=== PATIENT | male | born 1980 | race Caucasian/White ===

== ENCOUNTER 2017-02-09 11:55 | Emergency (ER) | payer SELFPAY ==
[2017-02-09 12:21] VITALS: BP 131/87
--- NOTE | 2017-02-09 12:59 | ER Document Report ---
ED ENT - General Chief Complaint: Nose Pain Stated Complaint: BUMPS ON NOSE Time seen by provider: 12:58 Mode of Arrival: Ambulatory Information source: Patient Notes: 36-year-old male presents to ED for complaint of sores in his left nostril. 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 He states he has now moved to [place]. He states he still has half a tube of Bactroban and some Bactrim but that the pain is so bad today that he cannot stand it. He states the pain and the source started on Tuesday. TRAVEL OUTSIDE OF THE [place] IN LAST 30 DAYS: No - HPI Patient complains to provider of: Nose problem Onset: Other - Tuesday Onset/Duration: Gradual, Worse Quality of pain: Sharp - Throbbing Severity: Moderate Pain Level: 4 Location of pain: Nose - Left nostril Associated symptoms: Other - Sore in left nostril Similar symptoms previously: Yes Recently seen / treated by doctor: No - Related Data Allergies/Adverse Reactions: codeine [From Tylenol-Codeine #3] Allergy (Verified 02/09/17 12:15) tramadol Allergy (Verified 02/09/17 12:15) Past Medical History - General Information source: Patient - Social History Smoking Status: Current Every Day Smoker Cigarette use (# per day): Yes - half a pack a day Chew tobacco use (# tins/day): No Smoking Education Provided: Yes - less than 2 minutes Frequency of alcohol use: None Drug Abuse: None Lives with: Friend Family History: CAD, COPD, CVA, DM, Hypertension, Malignancy, Thyroid Disfunction Patient has suicidal ideation: No Patient has homicidal ideation: No - Past Medical History Cardiac Medical History: Reports: Hx Coronary Artery Disease, Hx Heart Attack Pulmonary Medical History: Reports: Hx Asthma, Hx COPD EENT Medical History: Reports: None Neurological Medical History: Reports: None Endocrine Medical History: Reports: Hx Diabetes Mellitus Type 2 Renal/ Medical History: Reports: None Malignancy Medical History: Reports None GI Medical History: Reports: Other - Ventral hernias Musculoskeltal Medical History: Reports Hx Musculoskeletal Deformity, Reports Hx Musculoskeletal Trauma Skin Medical History: 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, Reports Other - Gasgreen infection to right thigh Psychiatric Medical History: Reports: None Traumatic Medical History: Reports: Hx Fractures - Tibia shoulder and jaw Infectious Medical History: Reports: Hx MRSA Past Surgical History: Reports: Hx Orthopedic Surgery - Removal of infection from right thigh Review of Systems - Review of Systems Constitutional: No symptoms reported EENT: Other - Very painful sore in left [place] Cardiovascular: No symptoms reported Respiratory: No symptoms reported Gastrointestinal: No symptoms reported Genitourinary: No symptoms reported Male Genitourinary: No symptoms reported Musculoskeletal: No symptoms reported Skin: No symptoms reported Hematologic/Lymphatic: No symptoms reported Neurological/Psychological: No symptoms reported Physical Exam - Vital signs Vitals: Temp Pulse Resp BP Pulse Ox 98.4 F 75 18 131/87 H 99 02/09/17 12:00 02/09/17 12:00 02/09/17 12:00 02/09/17 12:00 02/09/17 12:00 Interpretation: Normal - General General appearance: Appears well, Alert - HEENT Head: Normocephalic, Atraumatic Eyes: Normal Pupils: PERRL Ears: Normal External canal: Normal Tympanic membrane: Normal Sinus: Normal Nasal: Other - Very painful maculopapule and left Nostril 2 Pharynx: Normal Neck: Normal - Respiratory Respiratory status: No respiratory distress Chest status: Nontender Breath sounds: Normal Chest palpation: Normal - Cardiovascular Rhythm: Regular Heart sounds: Normal auscultation Murmur: No - Abdominal Inspection: Normal Distension: No distension Bowel sounds: Normal Tenderness: Nontender Organomegaly: No organomegaly - Back Back: Normal, Nontender - Extremities General upper extremity: Normal inspection, Nontender, Normal color, Normal ROM , Normal temperature General lower extremity: Normal inspection, Nontender, Normal color, Normal ROM , Normal temperature, Normal weight bearing. No: Hiren's sign - Neurological Neuro grossly intact: Yes Cognition: Normal Orientation: AAOx4 [place] Coma Scale Eye Opening: Spontaneous [place] Coma Scale Verbal: Oriented [place] Coma Scale Motor: Obeys Commands [place] Coma Scale Total: 15 Speech: Normal Motor strength normal: LUE, RUE, LLE, RLE Sensory: Normal - Psychological Associated symptoms: Normal affect, Normal mood - Skin Skin Temperature: Warm Skin Moisture: Dry Skin Color: Normal Course - Vital Signs Vital signs: Temp Pulse Resp BP Pulse Ox 98.4 F 75 18 131/87 H 99 02/09/17 12:15 02/09/17 12:15 02/09/17 12:15 02/09/17 12:15 02/09/17 12:15 Discharge - Discharge Clinical Impression: left nasal sores Condition: Stable Disposition: HOME, SELF-CARE Instructions: Family Physicians / Practices Additional Instructions: He was seen today for an sores in the left nostril. You state you have a history of MRSA in your nostrils. He has stated that you have Bactrim and Bactroban leftover from your last episode of MRSA in your nose. I will write you a new prescription for the Bactrim and Bactroban please take the prescription that I have provided and this prescription. You will need to find a local primary doctor if you have moved to this area to continue to treat your MRSA and the pain did this causes. MRSA CELLULITIS: You have an infection of your skin and underlying soft tissues called cellulitis. This is due to bacteria, which can enter through any break in the skin, or even through an irritated hair follicle. Untreated, cellulitis will usually worsen and may form an abscess which requires draining. Although many bacterial organisms can cause cellulitis and abscess formations, the most likely bacteria is Methicillin-Resistant Staph Aureus, or MRSA for short. Antibiotics are required. Usually, warm packs or warm soaks, and elevation of the infected area are recommended. You should start getting better within 24 to 36 hours. Most infections respond quickly to the right medication. Follow-up care is important, however, to check for abscess (boil) formation, unsuspected foreign body, or resistant infection. If you develop fever, chills, or if the area of infection is becoming rapidly more swollen or painful, call the doctor at once. TRIMETHOPRIM-SULFA: You have been given a prescription for trimethoprim-sulfa (TMS, Septra, Bactrim). This is a combination antibiotic of the sulfa class, often used for urinary tract infections, middle ear infections, bronchitis, shigella intestinal infection, and Pneumocystis pneumonia. TMS is usually well-tolerated. Occasional side effects include nausea and decreased appetite. Septra is not recommended for infants less than two months of age. Do not take this medication if you have experienced severe side effects or allergy to sulfa medicine. You should stop this medicine at once and contact your physician if you develop any rash, joint pain, shortness of breath, bruising, or jaundice ( yellow color in the skin), or if you develop any other new or unusual symptoms. Bactroban Ointment Bactroban is very effective against the germs that cause infection within the skin. It's useful for impetigo and other superficial infections. Deeper infections require antibiotics by mouth or by shot. Apply the medicine three times a day for one week, or longer if your doctor has advised it. Stop the medicine and call your doctor if you develop large blisters, severe itching, increasing pain, swelling, fever, or spreading redness. ORAL NARCOTIC MEDICATION: You have been given a prescription for pain control. This medication is a narcotic. It's best taken with food, as nausea can result if taken on an empty stomach. Don't operate machinery or drive within six hours of taking this medication. Do not combine this medicine with alcohol, or with any medication which can cause sedation (such as cold tablets or sleeping pills) unless you get permission from the physician. Narcotics tend to cause constipation. If possible, drink plenty of fluids and eat a diet high in fiber and fruits. Please be aware that prescription narcotics also have the potential for abuse. People become addicted to these medications because of the general sense of wellbeing that they induce. This feeling along with a significant reduction in tension, anxiety, and aggression provides a stimulating seductive quality to these drugs. Once your pain is under control, we encourage you to discard your unused narcotics. FOLLOW-UP CARE: If you have been referred to a physician for follow-up care, call the physician s office for an appointment as you were instructed or within the next two days. If you experience worsening or a significant change in your symptoms, notify the physician immediately or return to the Emergency Department at any time for re-evaluation. Prescriptions: Hydrocodone/Acetaminophen [[place] 5-325 mg Tablet] 1 tab PO Q6HP PRN #10 tablet PRN Reason: Mupirocin [Bactroban 2% Ointment 22 gm] 1 applic TP TID #1 tube Sulfamethoxazole/Trimethoprim [Bactrim Ds Tablet] 1 each PO BID #20 tablet Forms: Smoking Cessation Education
== END 2017-02-09 14:07 | disposition home or self-care (01) ==
LOC: ER 11:55
DX: J34.89 Other specified disorders of nose and nasal sinuses (principal); E11.9 Type 2 diabetes mellitus without complications; I25.10 Atherosclerotic heart disease of native coronary artery without angina pectoris; I25.2 Old myocardial infarction; J44.9 Chronic obstructive pulmonary disease, unspecified; F17.210 Nicotine dependence, cigarettes, uncomplicated; Z71.6 Tobacco abuse counseling; Z88.5 Allergy status to narcotic agent; Z86.14 Personal history of Methicillin resistant Staphylococcus aureus infection
CPT/HCPCS: 99283

== ENCOUNTER 2017-03-15 20:51 | Emergency (ER) | payer SELFPAY ==
[2017-03-15 21:28] VITALS: BP 143/91
[2017-03-15] MEDS ORDERED: LIDOCAINE 1%/EPINEPHRINE INJ 20 ML VIAL INJ ONE (22:38)
--- NOTE | 2017-03-15 23:16 | ER Document Report ---
ED General - General Chief Complaint: Abscess on hip Stated Complaint: ABSCESS Time Seen by Provider: 03/15/17 22:23 Notes: Patient is a 58-year-old male who presents with complaint of an abscess in the left inguinal area. He said several here in the past. Is on Bactrim for the past. The new abscess just started in last few days. He denies any fevers. No vomiting. No other complaints at this time. TRAVEL OUTSIDE OF THE [place] IN LAST 30 DAYS: No - Related Data Allergies/Adverse Reactions: codeine [From Tylenol-Codeine #3] Allergy (Verified 02/09/17 12:15) tramadol Allergy (Verified 02/09/17 12:15) Past Medical History - Social History Smoking Status: Unknown if Ever Smoked Frequency of alcohol use: None Drug Abuse: None Family History: CAD, COPD, CVA, DM, Hypertension, Malignancy, Thyroid Disfunction - Past Medical History Cardiac Medical History: Reports: Hx Coronary Artery Disease, Hx Heart Attack Pulmonary Medical History: Reports: Hx Asthma, Hx COPD Endocrine Medical History: Reports: Hx Diabetes Mellitus Type 2 Renal/ Medical History: Denies: Hx Peritoneal Dialysis Musculoskeltal Medical History: Reports Hx Musculoskeletal Deformity, Reports Hx Musculoskeletal Trauma Skin Medical History: 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 Traumatic Medical History: Reports: Hx Fractures - Tibia shoulder and jaw Infectious Medical History: Reports: Hx MRSA Past Surgical History: Reports: Hx Cardiac Surgery - stent, Hx Orthopedic Surgery - Removal of infection from right thigh Review of Systems - Review of Systems Notes: My Normal Review Basic REVIEW OF SYSTEMS: CONSTITUTIONAL : Denies fever, chills, or sweats. Denies recent illness. GASTROINTESTINAL: Denies abdominal pain. Denies nausea, vomiting, or diarrhea. Denies constipation. Last BM: MUSCULOSKELETAL: Denies neck or back pain or joint pain or swelling. SKIN: Abscess left inguinal area. NEUROLOGICAL: Denies altered mental status or loss of consciousness. Denies headache. Denies weakness or paralysis or loss of use of either side. Denies problems with gait or speech. Denies sensory or motor loss. ALL OTHER SYSTEMS REVIEWED AND NEGATIVE. Physical Exam - Vital signs Vitals: Temp Pulse Resp BP Pulse Ox 98.3 F 81 16 143/91 H 98 03/15/17 21:25 03/15/17 21:25 03/15/17 21:25 03/15/17 21:25 03/15/17 21:25 - Notes Notes: General Appearance: Well nourished, alert, cooperative, no acute distress, no obvious discomfort. Vitals: reviewed, See vital signs table. Eyes: PERRL, EOMI, Conjuctiva clear Abdomen: Normal BS, soft, No rigidity, No abdominal tenderness, No guarding, no rebound, no abdominal masses, no organomegaly Extremities: strength 5/5 in all extremities, good pulses in all extremities, no swelling or tenderness in the extremities, no edema. Skin: Patient has a 2 cm area of mild fluctuance with some smaller surrounding redness the left inguinal area. Area is superficial. Neuro: speech clear, oriented x 3, normal affect, responds appropriately to questions. Course - Vital Signs Vital signs: Temp Pulse Resp BP Pulse Ox 98.3 F 81 16 143/91 H 98 03/15/17 21:25 03/15/17 21:25 03/15/17 21:25 03/15/17 21:25 03/15/17 21:25 - Transfer of Care Notes: 03/15/17 23:36 Patient's abscess was incised and drained. He tolerated procedure well. Patient will be placed on Bactrim. Bactrim has worked well for him the past. Patient encouraged return to ER if his fevers, increased swelling, or spreading redness. Patient agrees with plan and will be discharged home. Dictation of this chart was performed using voice recognition software; therefore, there may be some unintended grammatical errors. Discharge - Discharge Clinical Impression: Abscess Condition: Good Disposition: HOME, SELF-CARE Additional Instructions: ABSCESS: You have an abscess (boil). This a pus-forming infection, usually due to staph. Some boils may be left to drain on their own, but most require lancing. From the time the tender lump first appears, it may be three or four days before the abscess is ready to jhonathan. Local heat and rest help at this stage of treatment. An antibiotic may prevent spread of the infection. Once the abscess is opened, packing may be placed into it. This is done so pus is not sealed inside by premature closure of the cavity. The packing will be removed at your follow-up visit or you may be advised to remove it yourself at home. Sometimes this packing must be replaced a few times during healing. The wound will heal with surprisingly little scar. Depending on the size and location of an abscess, healing can take one to four weeks. You may shower and wash the area around the incision site two or three times a day. Antibiotics may be prescribed, but are usually not necessary after an abscess has been drained. If you develop fever, chills, worsening pain, or increasing swelling in the area, call the doctor or return immediately. POST INCISION AND DRAINAGE: You have had an incision made to allow drainage of an abscess. The incision must remain open so that pus and debris can drain from the wound. If the abscess cavity is large, packing is placed. This keeps the tissues from collapsing and trapping pus inside, while the body shrinks the cavity. The packing may need to be replaced every day or two. The physician will instruct you on the packing. Keep a bulky dressing over the area. Replace it if it becomes saturated with blood or pus. Do not disturb the packing (if present). You may shower and cleanse the area with gentle soap and warm water two or three times a day. Local warmth may be soothing, and may promote faster healing. Return if you develop high fever or chills, or if you note spreading redness, increasing swelling, or increasing tenderness. ORAL NARCOTIC MEDICATION: You have been given a prescription for pain control. This medication is a narcotic. It's best taken with food, as nausea can result if taken on an empty stomach. Don't operate machinery or drive within six hours of taking this medication. Do not combine this medicine with alcohol, or with any medication which can cause sedation (such as cold tablets or sleeping pills) unless you get permission from the physician. Narcotics tend to cause constipation. If possible, drink plenty of fluids and eat a diet high in fiber and fruits. TRIMETHOPRIM-SULFA: You have been given a prescription for trimethoprim-sulfa (TMS, Septra, Bactrim). This is a combination antibiotic of the sulfa class, often used for urinary tract infections, middle ear infections, bronchitis, shigella intestinal infection, and Pneumocystis pneumonia. TMS is usually well-tolerated. Occasional side effects include nausea and decreased appetite. Septra is not recommended for infants less than two months of age. Do not take this medication if you have experienced severe side effects or allergy to sulfa medicine. You should stop this medicine at once and contact your physician if you develop any rash, joint pain, shortness of breath, bruising, or jaundice ( yellow color in the skin), or if you develop any other new or unusual symptoms. FOLLOW-UP CARE: Most simple abscesses will not require a follow up visit. If you had packing placed in the abscess, remove it as instructed by the physician. If you have been referred to a physician for follow-up care, call the physicians office for an appointment as you were instructed or within the next two days. If you experience worsening or a significant change in your symptoms, return to the Emergency Department at any time for re-evaluation. Please return to the ER immediately if you have fevers, spreading redness, or recurrent swelling. Prescriptions: Hydrocodone/Acetaminophen [[place] 5-325 mg Tablet] 1 tab PO Q4 PRN #10 tablet PRN Reason: For Breakthrough Pain Sulfamethoxazole/Trimethoprim [Bactrim Ds Tablet] 1 each PO BID #14 tablet
[2017-03-15] MEDS ORDERED: HYDROCODONE/ACETAMINOPHEN 5-325 MG TABLET PO ONE (23:30)
[2017-03-15] MEDS ORDERED: HYDROCODONE/ACETAMINOPHEN 5-325 MG 6 TAB/DSPK PO PRN (23:30)
== END 2017-03-15 23:48 | disposition home or self-care (01) ==
LOC: ER 20:51
DX: L02.416 Cutaneous abscess of left lower limb (principal); I25.10 Atherosclerotic heart disease of native coronary artery without angina pectoris; J45.909 Unspecified asthma, uncomplicated; J44.9 Chronic obstructive pulmonary disease, unspecified; E11.9 Type 2 diabetes mellitus without complications; I25.2 Old myocardial infarction; Z88.6 Allergy status to analgesic agent; Z86.14 Personal history of Methicillin resistant Staphylococcus aureus infection
CPT/HCPCS: 99283; J3490

== ENCOUNTER 2017-04-07 00:08 | Emergency (ER) | payer MEDICAID ==
[2017-04-07] MEDS ORDERED: MORPHINE SULFATE IR 15 MG TABLET PO ONE (01:24)
[2017-04-07] MEDS ORDERED: IBUPROFEN 600 MG TABLET PO ONE (01:24)
--- NOTE | 2017-04-07 01:25 | ER Document Report ---
ED General - General Chief Complaint: Eye Problem Stated Complaint: RIGHT EYE PAIN Time Seen by Provider: 04/07/17 00:50 Notes: Patient is a 36-year-old male with past medical history of recurrent abscesses and MRSA infections who presents with 2 days of progressively worsening pain to the right side of his face. Describes it as a severe, constant, throbbing pain to the area of swelling just inferior and lateral to his right eye. States this feels identical to when he had abscesses in the past but he has never had one in this location. He has been taking TMP-SMX at home without any resolution of his symptoms. He states the pain is worsened by touching the area and he has not seen his primary care doctor. He denies any visual changes , fever or constitutional symptoms. TRAVEL OUTSIDE OF THE [place] IN LAST 30 DAYS: No - Related Data Allergies/Adverse Reactions: codeine [From Tylenol-Codeine #3] Allergy (Verified 02/09/17 12:15) tramadol Allergy (Verified 02/09/17 12:15) Past Medical History - General Information source: Patient - Social History Smoking Status: Current Every Day Smoker Chew tobacco use (# tins/day): No Frequency of alcohol use: None Drug Abuse: None Lives with: Spouse/Significant other Family History: CAD, COPD, CVA, DM, Hypertension, Malignancy, Thyroid Disfunction Patient has suicidal ideation: No Patient has homicidal ideation: No - Past Medical History Cardiac Medical History: Reports: Hx Coronary Artery Disease, Hx Heart Attack Pulmonary Medical History: Reports: Hx Asthma, Hx COPD Endocrine Medical History: Reports: Hx Diabetes Mellitus Type 2 Renal/ Medical History: Denies: Hx Peritoneal Dialysis Musculoskeltal Medical History: Reports Hx Musculoskeletal Deformity, Reports Hx Musculoskeletal Trauma Skin Medical History: 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 Traumatic Medical History: Reports: Hx Fractures - Tibia shoulder and jaw Infectious Medical History: Reports: Hx MRSA Past Surgical History: Reports: Hx Cardiac Surgery - stent, Hx Orthopedic Surgery - Removal of infection from right thigh - Immunizations Hx Diphtheria, Pertussis, Tetanus Vaccination: No Review of Systems - Review of Systems Notes: Constitutional: Negative for fever. HENT: Negative for sore throat. Eyes: Negative for visual changes. Cardiovascular: Negative for chest pain. Respiratory: Negative for shortness of breath. Gastrointestinal: Negative for abdominal pain, vomiting or diarrhea. Genitourinary: Negative for dysuria. Musculoskeletal: Negative for back pain. Skin: Positive for rash. Neurological: Negative for headaches, weakness or numbness. 10 point ROS negative except as marked above and in HPI. Physical Exam - Vital signs Vitals: Temp Pulse Resp BP Pulse Ox 98.1 F 100 16 125/85 93 04/07/17 00:12 04/07/17 00:12 04/07/17 00:12 04/07/17 00:12 04/07/17 00:12 Interpretation: Normal Notes: PHYSICAL EXAMINATION: GENERAL: Well-appearing, well-nourished and in no acute distress. HEAD: Atraumatic, normocephalic. EYES: sclera anicteric, conjunctiva are normal. ENT: Moist mucous membranes. NECK: Normal range of motion LUNGS: Normal work of breathing HEART: 2+ radial pulses bilaterally EXTREMITIES: no pitting or edema. No cyanosis. NEUROLOGICAL: No focal neurological deficits. Moves all extremities spontaneously and on command. PSYCH: Normal mood, normal affect. SKIN: Warm, Dry, normal turgor, there is a 1 x 0.5 cm abscess to the right face just inferior and lateral to the right orbital socket without surrounding erythema - HEENT Visual acuity- Right eye: 20/100 Visual acuity- Left eye: 20/50 Visual acuity- Both eyes: 20/50 Corrective lenses worn: No Course - Re-evaluation Re-evalutation: 04/07/17 01:24 Patient presents with an abscess located inferiorly and laterally to the right eye without any ocular involvement or evidence of periorbital cellulitis. The abscess was incised and drained. He will be started on Bactrim twice daily. At this time will discharge with return precautions and follow-up recommendations. Verbal discharge instructions given a the bedside and opportunity for questions given. Medication warnings reviewed. Patient is in agreement with this plan and has verbalized understanding of return precautions and the need for primary care follow-up in the next 24-72 hours. - Vital Signs Vital signs: Temp Pulse Resp BP Pulse Ox 98.1 F 77 20 138/82 H 95 04/07/17 00:12 04/07/17 02:14 04/07/17 02:14 04/07/17 02:14 04/07/17 02:14 Procedures - Incision and Drainage Right Face Type: Simple Anesthetic type: 1% Lidocaine mL's of anesthetic: 1 Blade size: 11 I&D procedure: Betadine prep applied Incision Method: Incision made by scalpel Amount/type of drainage: 2 cc purulent drainage Discharge - Discharge Clinical Impression: Facial abscess Condition: Good Disposition: HOME, SELF-CARE Additional Instructions: You were seen for an abscess that required drainage. Please clean this area with soap and water twice daily and apply a topical antibiotic. Dress the area after each cleaning. Please return if you develop fever, vomiting, the pain at the site worsens, you notice spreading redness from the area, or you have any other symptoms that are concerning to you. Prescriptions: Sulfamethoxazole/Trimethoprim [Bactrim Ds Tablet] 1 tab PO BID #20 tablet
[2017-04-07 02:18] VITALS: BP 138/82
== END 2017-04-07 01:40 | disposition home or self-care (01) ==
LOC: ER 00:08
PROC: 0H91XZZ Drainage of Face Skin, External Approach (ICD-10-PCS; principal; 2017-04-07)
DX: L02.01 Cutaneous abscess of face (principal); H57.11 Ocular pain, right eye; F17.200 Nicotine dependence, unspecified, uncomplicated; I25.10 Atherosclerotic heart disease of native coronary artery without angina pectoris; J44.9 Chronic obstructive pulmonary disease, unspecified; J45.909 Unspecified asthma, uncomplicated; E11.9 Type 2 diabetes mellitus without complications; Z86.14 Personal history of Methicillin resistant Staphylococcus aureus infection; Z88.6 Allergy status to analgesic agent; I25.2 Old myocardial infarction
CPT/HCPCS: 99283; 10060; J3490

== ENCOUNTER 2017-04-25 08:48 | Emergency (ER) | payer MEDICAID ==
[2017-04-25 08:53] VITALS: BP 142/92
--- NOTE | 2017-04-25 09:43 | ER Document Report ---
HPI - HPI Patient complains to provider of: back and leg pain Onset: Yesterday Onset/Duration: Sudden Quality of pain: Burning Severity: Severe Pain Level: 4 Context: Patient presents to the emergency department with complaints of back and right leg pain, reports it feels like his lef is on fire. Patient reports he was at the pool yesterday bent over to parts picker a baby out of the pool and hurt his back. He reports he has history of sciatica. This feels the same. Denies other symptoms such as fever vomiting diarrhea. Denies urinary or bowel incontinence or retention. Denies numbness/tingling. Last bowel movement this morning without problems. Patient reports he has been taking ibuprofen without relief of pain. Associated Symptoms: None Exacerbated by: Denies Relieved by: Denies Similar symptoms previously: Yes Recently seen / treated by doctor: No - DERM Skin Color: Normal Past Medical History - General Information source: Patient - Social History Smoking Status: Current Every Day Smoker Cigarette use (# per day): Yes Frequency of alcohol use: None Drug Abuse: None Occupation: none Family History: CAD, COPD, CVA, DM, Hypertension, Malignancy, Thyroid Disfunction Patient has suicidal ideation: No Patient has homicidal ideation: No - Past Medical History Cardiac Medical History: Reports: Hx Coronary Artery Disease, Hx Heart Attack Pulmonary Medical History: Reports: Hx Asthma, Hx COPD Endocrine Medical History: Reports: Hx Diabetes Mellitus Type 2 Renal/ Medical History: Denies: Hx Peritoneal Dialysis Musculoskeltal Medical History: Reports Hx Musculoskeletal Deformity, Reports Hx Musculoskeletal Trauma Skin Medical History: 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 Traumatic Medical History: Reports: Hx Fractures - Tibia shoulder and jaw Infectious Medical History: Reports: Hx MRSA Past Surgical History: Reports: Hx Cardiac Surgery - stent, Hx Orthopedic Surgery - Removal of infection from right thigh - Immunizations Hx Diphtheria, Pertussis, Tetanus Vaccination: No Vertical Provider Document - CONSTITUTIONAL Agree With Documented VS: Yes Exam Limitations: No Limitations General Appearance: WD/WN, No Apparent Distress - INFECTION CONTROL TRAVEL OUTSIDE OF THE [place] IN LAST 30 DAYS: No - HEENT HEENT: Atraumatic, Normocephalic - NECK Neck: Normal Inspection, Supple - RESPIRATORY Respiratory: Breath Sounds Normal, No Respiratory Distress O2 Sat by Pulse Oximetry: 99 - CARDIOVASCULAR Cardiovascular: Regular Rate - BACK Back: Normal Inspection - No obvious deformity. Good distal movement and sensation. Complains of low back right-sided pain that radiates down his right leg. No weakness good reflexes. - MUSCULOSKELETAL/EXTREMETIES Musculoskeletal/Extremeties: REBECAJOSE - NEURO Level of Consciousness: Awake, Alert, Appropriate Motor/Sensory: No Motor Deficit - DERM Integumentary: Warm, Dry Adult Front & Back Diagram: 1 - c/o pain 2 - radiates down right leg Course - Re-evaluation Re-evalutation: 04/25/17 09:40 I discussed possible treatment plan with patient to include muscle relaxer prescription ibuprofen and he became very angry. He reports he denies that he takes Zanaflex and does not need another muscle relaxer. He reports he has a 4- year-old child at home and all that does is put him to sleep. We discussed Toradol. Patient again became very very upset and demands to see another provider. Consult with Dr. vernon per [facility] guidelines. She will be over to see the patient as soon as she can. The patient presents with low back pain without signs of spinal cord compression , cauda equine syndrome, infection, aneurysm, or other serious etiology. The patient is neurologically intact. The patient has good distal movement and sensation, denies urinary or bowel incontinence/retention. Given the extremely low risk of these diagnosis, further testing and evaluation for these possibilities does not appear to be indicated at this time. 04/25/17 09:47 Patient placed in room [address] vernon 04/25/17 09:55 dr vernon in to see patient 04/25/17 10:12 Patient to be discharged with a [facility] dispense pack. Patient was also instructed on a list of primary care providers that he could follow-up with. - Vital Signs Vital signs: Temp Pulse Resp BP Pulse Ox 98 F 68 18 142/92 H 99 04/25/17 08:51 04/25/17 08:51 04/25/17 08:51 04/25/17 08:51 04/25/17 08:51 Discharge - Discharge Clinical Impression: elevated blood pressure Low back pain Qualifiers: Chronicity: acute Back pain laterality: right Sciatica presence: with sciatica Sciatica laterality: sciatica of right side Qualified Code(s): M54.41 - Lumbago with sciatica, right side Condition: Stable Disposition: HOME, SELF-CARE Instructions: Family Physicians / Practices, Ice Packs ([facility]), Low Back Pain ( [facility]), Oral Narcotic Medication ([facility]) Additional Instructions: *You have been evaluated for back pain *Take medication as prescribed *Rest/Ice packs as indicated *Follow up with a primary care provider within one week *Return to ED for worsening condition, changes, needs Monitor your blood pressure. Your blood pressure was elevated today. This may be because you were anxious, in pain or because you need medication. It is important to follow up with your primary care provider for full evaluation. Forms: Elevated Blood Pressure
--- NOTE | 2017-04-25 10:08 | ER Document Report ---
Doctor's Note Notes: 04/25/17 10:05 Patient is a 36-year-old male, I was asked to see him in conjunction with the nurse practitioner as he was unhappy with her reluctance to give him narcotic pain medication for his back pain, he reports taking his child up near the pool yesterday, causing an intense pain in the right low back shooting down the leg with burning sensation, he has a history of chronic pain in the past, states he has been in pain management but took himself out of the program approximately 7 years ago, states he does not want to be dependent on pain medication but he is in so much pain at this point in time that he is willing to take narcotics and in fact was requesting them specifically from the nurse practitioner, at home he states he has been doing some stretching, warm soaks, warm compresses, he has been taking Tylenol and Motrin with no relief, patient recently moved to the area from [place] has not yet established primary care, states he is in the process of establishing Medicaid so that he can follow-up with a primary care provider, he denies any bowel or bladder dysfunction, no numbness or tingling groin or extremities, he denies any specific injury to his back other than picking up a child recently, patient was advised of our narcotic pain medication policy here at [facility], and the need for him to follow-up with a primary care provider for any further concerns related to pain, he will be given a doespack of 6 hydrocodone 5 mg tablets today and he was advised that that would be all the narcotic pain medication we would provide from this emergency room for his sciatica type pain, patient acknowledges understanding and agreement with this plan Discharge - Discharge Clinical Impression: elevated blood pressure Low back pain Qualifiers: Chronicity: acute Back pain laterality: right Sciatica presence: with sciatica Sciatica laterality: sciatica of right side Qualified Code(s): M54.41 - Lumbago with sciatica, right side Condition: Stable Disposition: HOME, SELF-CARE Instructions: Family Physicians / Practices, Ice Packs ([facility]), Low Back Pain ( [facility]) Additional Instructions: *You have been evaluated for back pain *Take medication as prescribed *Rest/Ice packs as indicated *Follow up with a primary care provider within one week *Return to ED for worsening condition, changes, needs Monitor your blood pressure. Your blood pressure was elevated today. This may be because you were anxious, in pain or because you need medication. It is important to follow up with your primary care provider for full evaluation. Forms: Elevated Blood Pressure
[2017-04-25] MEDS ORDERED: HYDROCODONE/ACETAMINOPHEN 5-325 MG 6 TAB/DSPK PO PRN (10:09)
== END 2017-04-25 10:30 | disposition home or self-care (01) ==
LOC: ER 08:48
DX: M54.41 Lumbago with sciatica, right side (principal); R03.0 Elevated blood-pressure reading, without diagnosis of hypertension; M54.9 Dorsalgia, unspecified; M54.5 Low back pain; M79.604 Pain in right leg; F17.210 Nicotine dependence, cigarettes, uncomplicated
CPT/HCPCS: 99283

== ENCOUNTER 2017-07-27 13:28 | Emergency (ER) | payer MEDICAID ==
[2017-07-27 13:42] VITALS: BP 148/80
== END 2017-07-27 14:29 | disposition left against medical advice (07) ==
LOC: ER 13:28
DX: Z53.9 Procedure and treatment not carried out, unspecified reason (principal); K08.89 Other specified disorders of teeth and supporting structures

== ENCOUNTER 2017-07-28 05:17 | Emergency (ER) | payer MEDICAID ==
[2017-07-28] MEDS ORDERED: LIDOCAINE 1% INJ-PF (10 MG/ML) 30 ML SDV INJ ONE (07:42)
--- NOTE | 2017-07-28 07:44 | ER Document Report ---
ED Skin Rash/Insect Bite/Abscs - General Chief Complaint: Abscess Stated Complaint: ARM PAIN Time Seen by Provider: 07/28/17 07:21 Mode of Arrival: Ambulatory Information source: Patient Notes: Patient is a 36-year-old male who presents to the ER today for 3 days of pain and swelling to the right axilla. Patient also complains of left upper tooth pain that is chronic. Patient denies any fevers or chills, drainage from the axilla. He has no history of MRSA that he knows of. He does have a history of abscesses that have had to be incised and drained before. TRAVEL OUTSIDE OF THE [place] IN LAST 30 DAYS: No - Related Data Allergies/Adverse Reactions: codeine [From Tylenol-Codeine #3] Allergy (Verified 07/27/17 13:43) naproxen Allergy (Verified 07/27/17 13:43) tramadol Allergy (Verified 07/27/17 13:43) Past Medical History - General Information source: Patient - Social History Smoking Status: Current Every Day Smoker Family History: CAD, COPD, CVA, DM, Hypertension, Malignancy, Thyroid Disfunction Patient has suicidal ideation: No Patient has homicidal ideation: No - Past Medical History Cardiac Medical History: Reports: Hx Coronary Artery Disease, Hx Heart Attack Pulmonary Medical History: Reports: Hx Asthma, Hx COPD Endocrine Medical History: Reports: Hx Diabetes Mellitus Type 2 Renal/ Medical History: Denies: Hx Peritoneal Dialysis Musculoskeltal Medical History: Reports Hx Musculoskeletal Deformity, Reports Hx Musculoskeletal Trauma Skin Medical History: 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 Traumatic Medical History: Reports: Hx Fractures - Tibia shoulder and jaw Infectious Medical History: Reports: Hx MRSA Past Surgical History: Reports: Hx Cardiac Surgery - stent, Hx Orthopedic Surgery - Removal of infection from right thigh - Immunizations Hx Diphtheria, Pertussis, Tetanus Vaccination: No Review of Systems - Review of Systems Constitutional: No symptoms reported EENT: No symptoms reported Cardiovascular: No symptoms reported Respiratory: No symptoms reported Gastrointestinal: No symptoms reported Genitourinary: No symptoms reported Male Genitourinary: No symptoms reported Musculoskeletal: No symptoms reported Skin: See HPI Hematologic/Lymphatic: No symptoms reported Neurological/Psychological: No symptoms reported Physical Exam - Vital signs Vitals: Temp Pulse Resp BP Pulse Ox 97.4 F 91 18 132/86 H 96 07/28/17 05:20 07/28/17 05:20 07/28/17 05:20 07/28/17 05:20 07/28/17 05:20 - Notes Notes: PHYSICAL EXAMINATION: GENERAL: Uncomfortable appearing, but in no acute distress. HEAD: Atraumatic, normocephalic. EYES: Pupils equal round and reactive to light, extraocular movements intact, sclera anicteric, conjunctiva are normal. ENT: ear canals without erythema or foreign body, TMs pearly carson with good bony landmarks, nares patent, oropharynx clear without exudates. Moist mucous membranes. Poor dentition, tender to left upper gum around tooth #13, no edema , fluctuance or induration NECK: Normal range of motion, supple without lymphadenopathy LUNGS: CTAB and equal. No wheezes rales or rhonchi. HEART: Regular rate and rhythm without murmurs ABDOMEN: Soft, no tenderness. No guarding, no rebound BACK: no vertebral tenderness, normal ROM GI/: no CVA tenderness EXTREMITIES: Normal range of motion, no pitting edema. No cyanosis. NEUROLOGICAL: Cranial nerves grossly intact. Normal sensory/motor exams. PSYCH: Normal mood, normal affect. SKIN: Warm, Dry, normal turgor, 1cm in diameter indurated area to right axilla, tender to palpation, mild erythema overlying Course - Vital Signs Vital signs: Temp Pulse Resp BP Pulse Ox 97.4 F 91 18 132/86 H 96 07/28/17 05:20 07/28/17 05:20 07/28/17 05:20 07/28/17 05:20 07/28/17 05:20 Procedures - Incision and Drainage Right Arm Time completed: 09:00 Type: Simple Anesthetic type: 1% Lidocaine mL's of anesthetic: 4 Blade size: 11 I&D procedure: Betadine prep applied Incision Method: Incision made by scalpel Amount/type of drainage: pus and blood Discharge - Discharge Clinical Impression: Abscess of axilla, right, Pain, dental Condition: Stable Disposition: HOME, SELF-CARE Instructions: Abscess ([facility]), Post Incision and Drainage, Toothache ([facility]), Trimethoprim-Sulfa ([facility]) Additional Instructions: Return immediately for any new or worsening symptoms. Follow up with primary care provider, call tomorrow to make followup appointment. Please follow-up with your dentist. Prescriptions: Oxycodone HCl/Acetaminophen [Percocet 5-325 mg Tablet] 1 - 2 tab PO Q4H PRN #12 tablet PRN Reason: Sulfamethoxazole/Trimethoprim [Bactrim Ds Tablet] 1 each PO BID #20 tablet
[2017-07-28] MEDS ORDERED: OXYCODONE-ACETAMINOPHEN 5-325 MG TABLET PO ONE (08:12)
[2017-07-28 09:39] VITALS: BP 136/78
== END 2017-07-28 09:39 | disposition home or self-care (01) ==
LOC: ER 05:17
PROC: 0H9BXZZ Drainage of Right Upper Arm Skin, External Approach (ICD-10-PCS; principal; 2017-07-28)
DX: L02.411 Cutaneous abscess of right axilla (principal); K08.89 Other specified disorders of teeth and supporting structures; G89.29 Other chronic pain; I25.10 Atherosclerotic heart disease of native coronary artery without angina pectoris; I25.2 Old myocardial infarction; J44.9 Chronic obstructive pulmonary disease, unspecified; E11.9 Type 2 diabetes mellitus without complications; F17.200 Nicotine dependence, unspecified, uncomplicated; Z88.5 Allergy status to narcotic agent; Z88.8 Allergy status to other drugs, medicaments and biological substances; Z95.5 Presence of coronary angioplasty implant and graft
CPT/HCPCS: 10060; 99283; J3490

== ENCOUNTER 2017-08-03 13:41 | Emergency (ER) | payer MEDICAID ==
[2017-08-03 13:46] VITALS: BP 118/83
--- NOTE | 2017-08-03 14:25 | ER Document Report ---
ED Skin Rash/Insect Bite/Abscs - General Chief Complaint: Abscess Stated Complaint: RIGHT ARM PAIN Time Seen by Provider: 08/03/17 14:14 Mode of Arrival: Ambulatory Information source: Patient Notes: 36-year-old male presents to ED for complaint of abscess to the right axilla. He states he was drained on 07/28. States that the site was getting better now this started getting bigger again it is not red or inflamed but it is painful. TRAVEL OUTSIDE OF THE [place] IN LAST 30 DAYS: No - HPI Patient complains to provider of: Tender/swollen area Onset: Yesterday Onset/Duration: Gradual Quality of pain: Pressure, Sharp Severity: Mild Pain Level: 2 Skin Character: Abscess Quality of rash: Painful Identify cause: No Exacerbated by: Movement Relieved by: Denies Similar symptoms previously: Yes Recently seen / treated by doctor: Yes - Related Data Allergies/Adverse Reactions: codeine [From Tylenol-Codeine #3] Allergy (Verified 08/03/17 13:44) naproxen Allergy (Verified 08/03/17 13:44) tramadol Allergy (Verified 08/03/17 13:44) Past Medical History - General Information source: Patient - Social History Smoking Status: Current Every Day Smoker Cigarette use (# per day): Yes Smoking Education Provided: Yes - less than 2 min Family History: CAD, COPD, CVA, DM, Hypertension, Malignancy, Thyroid Disfunction. denies: Arthritis, Hyperlipidemia Patient has suicidal ideation: No Patient has homicidal ideation: No - Past Medical History Cardiac Medical History: Reports: Hx Coronary Artery Disease, Hx Heart Attack, Hx Hypercholesterolemia, Hx Hypertension Denies: Hx Atrial Fibrillation, Hx Congestive Heart Failure, Hx DVT Pulmonary Medical History: Reports: Hx Asthma, Hx COPD EENT Medical History: Reports: None Neurological Medical History: Reports: None Endocrine Medical History: Reports: Hx Diabetes Mellitus Type 2 Renal/ Medical History: Reports: None Malignancy Medical History: Reports None GI Medical History: Reports: None Musculoskeltal Medical History: Reports Hx Musculoskeletal Deformity, Reports Hx Musculoskeletal Trauma Skin Medical History: 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 Psychiatric Medical History: Reports: None Traumatic Medical History: Reports: Hx Fractures - Tibia shoulder and jaw Infectious Medical History: Reports: Hx MRSA Past Surgical History: Reports: Hx Cardiac Catheterization, Hx Coronary Stent, Hx Orthopedic Surgery - Removal of infection from right thigh - Immunizations Hx Diphtheria, Pertussis, Tetanus Vaccination: No Review of Systems - Review of Systems Constitutional: No symptoms reported EENT: No symptoms reported Cardiovascular: No symptoms reported Respiratory: No symptoms reported Gastrointestinal: No symptoms reported Genitourinary: No symptoms reported Male Genitourinary: No symptoms reported Musculoskeletal: No symptoms reported Skin: Other - abscess right axilla Hematologic/Lymphatic: No symptoms reported Neurological/Psychological: No symptoms reported -: Yes All other systems reviewed and negative Physical Exam - Vital signs Vitals: Temp Pulse Resp BP Pulse Ox 97.6 F 72 18 118/83 99 08/03/17 13:45 08/03/17 13:45 08/03/17 13:45 08/03/17 13:45 08/03/17 13:45 Interpretation: Normal - General General appearance: Appears well, Alert - HEENT Head: Normocephalic, Atraumatic Eyes: Normal Pupils: PERRL - Respiratory Respiratory status: No respiratory distress Chest status: Nontender Breath sounds: Normal Chest palpation: Normal - Cardiovascular Rhythm: Regular Heart sounds: Normal auscultation Murmur: No - Abdominal Inspection: Normal Distension: No distension Bowel sounds: Normal Tenderness: Nontender Organomegaly: No organomegaly - Back Back: Normal, Nontender - Extremities General upper extremity: Normal inspection, Nontender, Normal color, Normal ROM , Normal temperature General lower extremity: Normal inspection, Nontender, Normal color, Normal ROM , Normal temperature, Normal weight bearing. No: Hiren's sign - Neurological Neuro grossly intact: Yes Cognition: Normal Orientation: AAOx4 [place] Coma Scale Eye Opening: Spontaneous [place] Coma Scale Verbal: Oriented [place] Coma Scale Motor: Obeys Commands [place] Coma Scale Total: 15 Speech: Normal Motor strength normal: LUE, RUE, LLE, RLE Sensory: Normal - Psychological Associated symptoms: Normal affect, Normal mood - Skin Skin Temperature: Warm Skin Moisture: Dry Skin Color: Normal Skin irregularity: Abscess - right axilla Course - Re-evaluation Re-evalutation: 08/03/17 15:15 Patient treated with Septra and dispense pack of [place] after his I&D was completed. Wound was packed and patient instructed to remove packing in 3 days. - Vital Signs Vital signs: Temp Pulse Resp BP Pulse Ox 97.6 F 72 18 118/83 99 08/03/17 13:45 08/03/17 13:45 08/03/17 13:45 08/03/17 13:45 08/03/17 13:45 Procedures - Incision and Drainage right axilla Time completed: 15:13 Type: Simple Anesthetic type: 1% Lidocaine mL's of anesthetic: 5 Blade size: 11 I&D procedure: Shurclens applied, Iodoform packing placed, Sterile dressing applied Incision Method: Incision made by scalpel Discharge - Discharge Clinical Impression: Abscess of axilla, right Condition: Stable Disposition: HOME, SELF-CARE Instructions: Family Physicians / Practices Additional Instructions: ABSCESS: You have an abscess (boil). This a pus-forming infection, usually due to staph. Some boils may be left to drain on their own, but most require lancing. From the time the tender lump first appears, it may be three or four days before the abscess is ready to jhonathan. Local heat and rest help at this stage of treatment. An antibiotic may prevent spread of the infection. Once the abscess is opened, packing may be placed into it. This is done so pus is not sealed inside by premature closure of the cavity. The packing will be removed at your follow-up visit or you may be advised to remove it yourself at home. Sometimes this packing must be replaced a few times during healing. The wound will heal with surprisingly little scar. Depending on the size and location of an abscess, healing can take one to four weeks. You may shower and wash the area around the incision site two or three times a day. Antibiotics may be prescribed, but are usually not necessary after an abscess has been drained. If you develop fever, chills, worsening pain, or increasing swelling in the area, call the doctor or return immediately. POST INCISION AND DRAINAGE: You have had an incision made to allow drainage of an abscess. The incision must remain open so that pus and debris can drain from the wound. If the abscess cavity is large, packing is placed. This keeps the tissues from collapsing and trapping pus inside, while the body shrinks the cavity. The packing may need to be replaced every day or two. The physician will instruct you on the packing. Keep a bulky dressing over the area. Replace it if it becomes saturated with blood or pus. Do not disturb the packing (if present). You may shower and cleanse the area with gentle soap and warm water two or three times a day. Local warmth may be soothing, and may promote faster healing. Return if you develop high fever or chills, or if you note spreading redness, increasing swelling, or increasing tenderness. ORAL NARCOTIC MEDICATION: You have been given a [place] disp pack for pain control. This medication is a narcotic. It's best taken with food, as nausea can result if taken on an empty stomach. Don't operate machinery or drive within six hours of taking this medication. Do not combine this medicine with alcohol, or with any medication which can cause sedation (such as cold tablets or sleeping pills) unless you get permission from the physician. Narcotics tend to cause constipation. If possible, drink plenty of fluids and eat a diet high in fiber and fruits. CEPHALEXIN: The antibiotic you've been prescribed is a member of the cephalosporin class. This type of antibiotic covers a wide variety of infections, including those of the skin, lungs, and urinary tract. It's useful for staph infections. This antibiotic is slightly similar to the penicillin family. In rare cases , a person who is allergic to penicillin will also be allergic to this medication. If you have had a severe allergic reaction to penicillin, and have not taken this antibiotic since that time, notify your doctor. Antibiotics which cover many germs ("broad spectrum" antibiotics) are more likely to cause diarrhea or "yeast" infections. Women prone to vaginal yeast problems may suffer an attack after taking this antibiotic. In infants, oral thrush (white spots "stuck" on the cheek) or yeast diaper rash may result. See your doctor if these problems occur. Call at once if you develop itching, hives , shortness of breath, or lightheadedness. TRIMETHOPRIM-SULFA: You have been given a prescription for trimethoprim-sulfa (TMS, Septra, Bactrim). This is a combination antibiotic of the sulfa class, often used for urinary tract infections, middle ear infections, bronchitis, shigella intestinal infection, and Pneumocystis pneumonia. TMS is usually well-tolerated. Occasional side effects include nausea and decreased appetite. Septra is not recommended for infants less than two months of age. Do not take this medication if you have experienced severe side effects or allergy to sulfa medicine. You should stop this medicine at once and contact your physician if you develop any rash, joint pain, shortness of breath, bruising, or jaundice ( yellow color in the skin), or if you develop any other new or unusual symptoms. FOLLOW-UP CARE: Most simple abscesses will not require a follow up visit. If you had packing placed in the abscess, remove it as instructed by the physician. If you have been referred to a physician for follow-up care, call the physicians office for an appointment as you were instructed or within the next two days. If you experience worsening or a significant change in your symptoms, return to the Emergency Department at any time for re-evaluation. Prescriptions: Cephalexin Monohydrate [Keflex 500 mg Capsule] 500 mg PO QID #20 capsule Sulfamethoxazole/Trimethoprim [Septra-Ds 800-160 mg Tablet] 1 tab PO BID #14 tablet Forms: Return to Work
[2017-08-03] MEDS ORDERED: SULFAMETHOXAZOLE/TRIMETHOPRIM 800-160 MG TABLET PO ONE (15:11)
[2017-08-03] MEDS ORDERED: CEPHALEXIN 500 MG CAPSULE PO ONE (15:11)
[2017-08-03] MEDS ORDERED: HYDROCODONE/ACETAMINOPHEN 5-325 MG 6 TAB/DSPK PO PRN (15:12)
== END 2017-08-03 15:28 | disposition home or self-care (01) ==
LOC: ER 13:41
PROC: 0H9BXZZ Drainage of Right Upper Arm Skin, External Approach (ICD-10-PCS; principal; 2017-08-03)
DX: L02.411 Cutaneous abscess of right axilla (principal); E11.9 Type 2 diabetes mellitus without complications; I25.10 Atherosclerotic heart disease of native coronary artery without angina pectoris; I25.2 Old myocardial infarction; I10 Essential (primary) hypertension; J44.9 Chronic obstructive pulmonary disease, unspecified; F17.210 Nicotine dependence, cigarettes, uncomplicated; Z71.6 Tobacco abuse counseling; Z86.14 Personal history of Methicillin resistant Staphylococcus aureus infection; Z95.5 Presence of coronary angioplasty implant and graft; Z88.8 Allergy status to other drugs, medicaments and biological substances; Z88.5 Allergy status to narcotic agent
CPT/HCPCS: 99283; 87070; 87205; 87075; 87077; 87186; 10060; A6266; J3490

== ENCOUNTER 2017-08-25 12:34 | Emergency (ER) | payer MEDICAID ==
--- NOTE | 2017-08-25 13:47 | ER Document Report ---
HPI - HPI Patient complains to provider of: rib pain Pain Level: 4 Context: Patient is a 36 year old male who presents to the ED complaining of right side rib pain. 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 He since feels much better, he has been having issues with his insulin since he has been losing weight but he went to [facility] who corrected his insulin and sent him to the ED to have his ribs evaluated and CXR. H/o IDDM, COPD - CARDIOVASCULAR Cardiovascular: DENIES: Chest pain Past Medical History - Social History Smoking Status: Current Every Day Smoker Chew tobacco use (# tins/day): No Frequency of alcohol use: None Drug Abuse: None Family History: CAD, COPD, CVA, DM, Hypertension, Malignancy, Thyroid Disfunction. denies: Arthritis, Hyperlipidemia - Past Medical History Cardiac Medical History: Reports: Hx Coronary Artery Disease, Hx Heart Attack, Hx Hypercholesterolemia, Hx Hypertension Denies: Hx Atrial Fibrillation, Hx Congestive Heart Failure, Hx DVT Pulmonary Medical History: Reports: Hx Asthma, Hx COPD Endocrine Medical History: Reports: Hx Diabetes Mellitus Type 2 Renal/ Medical History: Denies: Hx Peritoneal Dialysis Musculoskeltal Medical History: Reports Hx Musculoskeletal Deformity, Reports Hx Musculoskeletal Trauma Skin Medical History: 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 Traumatic Medical History: Reports: Hx Fractures - Tibia shoulder and jaw Infectious Medical History: Reports: Hx MRSA Past Surgical History: Reports: Hx Cardiac Catheterization - LAD stent, Hx Cardiac Surgery - stent, Hx Coronary Stent, Hx Orthopedic Surgery - Removal of infection from right thigh - Immunizations Hx Diphtheria, Pertussis, Tetanus Vaccination: No Vertical Provider Document - CONSTITUTIONAL Agree With Documented VS: Yes Exam Limitations: No Limitations General Appearance: WD/WN, No Apparent Distress Notes: PHYSICAL EXAM GENERAL: Alert, interacts well. LUNGS: Clear to auscultation bilaterally, no wheezes, rales, or rhonchi. No respiratory distress. CHest wall with tenderness over right lower ribs 10-11 without deformity, flail segment, crepitus HEART: Regular rate and rhythm. No murmurs, gallops, or rubs. ABDOMEN: Soft, nondistended, nontender. No guarding, rebound, or rigidity.. Bowel sounds present in all 4 quadrants. EXTREMITIES: Moves all 4 extremities spontaneously. No edema, radial and dorsalis pedis pulses 2/4 bilaterally. No cyanosis. NEUROLOGICAL: Alert and oriented x4. Normal speech. PSYCH: Normal affect, normal mood. SKIN: Warm, dry, normal turgor. No rashes or lesions noted. - INFECTION CONTROL TRAVEL OUTSIDE OF THE [place] IN LAST 30 DAYS: No - RESPIRATORY O2 Sat by Pulse Oximetry: 96 Course - Re-evaluation Re-evalutation: 08/25/17 14:46 Patient is a 36-year-old male who is hemodynamic stable, no acute distress and afebrile. No evidence of rib fracture or pneumothorax noted on chest x-ray. Patient able to take deep breaths and speak without guarding. Discussed with him to encourage activity to prevent pneumonia and to follow-up with primary care. Patient agrees with plan. - Vital Signs Vital signs: Temp Pulse Resp BP Pulse Ox 97.8 F 82 141/90 H 96 08/25/17 12:38 08/25/17 12:38 08/25/17 12:38 08/25/17 12:38 - Diagnostic Test Radiology reviewed: Image reviewed, Reports reviewed Discharge - Discharge Clinical Impression: Rib pain Condition: Good Disposition: HOME, SELF-CARE Instructions: Chest Wall Pain ([facility]) [facility] [NO [facility]AL MD] - Follow up as needed
[2017-08-25] MEDS ORDERED: ALBUTEROL SULFATE 0.083% NEB 2.5 MG/3 ML AMPUL NEB ONE (14:25)
--- NOTE | 2017-08-25 14:34 | RADIOLOGY REPORT (SQ) ---
EXAM DESCRIPTION: RIBS RIGHT W/PA CHEST COMPLETED DATE/TIME: 08/25/2017 2:22 pm REASON FOR STUDY: fall yesterday COMPARISON: None. TECHNIQUE: Frontal view of the chest and additional views of the right ribs acquired. NUMBER OF VIEWS: Four view. LIMITATIONS: None. FINDINGS: FRONTAL CXR: No pneumothorax. No pleural effusion. No atelectasis or infiltrates. RIBS: No displaced rib fractures. No lytic or blastic bony lesions. OTHER: No other significant finding. IMPRESSION: NO PNEUMOTHORAX. NO DISPLACED RIB FRACTURES. COMMENT: SITE OF TRAUMA/COMPLAINT MARKED/STAMP COMPLETED: YES. TECHNICAL DOCUMENTATION: JOB ID: [id number] [employer]- All Rights Reserved
[2017-08-25] MEDS ORDERED: HYDROCODONE/ACETAMINOPHEN 5-325 MG (6 TAB/ER DISP) PO PRN (14:47)
[2017-08-25 14:54] VITALS: BP 140/92
== END 2017-08-25 14:54 | disposition home or self-care (01) ==
LOC: ER 12:34
DX: R07.81 Pleurodynia (principal); F17.200 Nicotine dependence, unspecified, uncomplicated; I25.10 Atherosclerotic heart disease of native coronary artery without angina pectoris; E78.00 Pure hypercholesterolemia, unspecified; I10 Essential (primary) hypertension; J44.9 Chronic obstructive pulmonary disease, unspecified; E11.9 Type 2 diabetes mellitus without complications; I25.2 Old myocardial infarction; Z86.14 Personal history of Methicillin resistant Staphylococcus aureus infection
CPT/HCPCS: 94640; 99283

== ENCOUNTER 2017-09-04 15:39 | Emergency (ER) | payer SELFPAY ==
[2017-09-04 15:44] VITALS: BP 124/84
[2017-09-04] MEDS ORDERED: LIDOCAINE 5% (700 MG) TRANSDERMAL ADH..PATCH TP ONE (16:15)
[2017-09-04] MEDS ORDERED: DEXAMETHASONE SOD PHOS INJ 10 MG/1 ML VIAL IM ONE (16:15)
--- NOTE | 2017-09-04 16:20 | ER Document Report ---
HPI - HPI Pain Level: 5 Notes: Patient is a 36-year-old male with a history of chronic back pain who presents the ED complaining of acute low back pain status post injury prior to arrival. Patient states that he slipped on some stairs and hurt his back. Patient denies any head injury, loss of consciousness, nausea/vomiting. Patient states that standing for long periods and standing erect makes the pain worse. Patient states that he will feel occasionally tingling into his thighs bilaterally. The pain in his lower back does not radiate otherwise. The pain is described as a sharp pain. He still eating and drinking without difficulties. He still urinating normally. Denies any headache, fever, head injury, neck pain, chest pain, palpitations, syncope, cough, shortness of breath , wheeze, dyspnea, abdominal pain, nausea/vomiting/diarrhea, urinary retention, dysuria, hematuria, loss of control of bowel or bladder, numbness/tingling, saddle anesthesia, muscle paralysis/weakness, or rash. + DM history. Patient also denies any surgeries or procedures to his lower back. He denies any IV drug use or other significant medical history. - ROS Notes: REVIEW OF SYSTEMS: CONSTITUTIONAL : Denies fever, chills, or sweats. Denies recent illness. EENT: Denies eye, ear, throat, or mouth pain or symptoms. Denies nasal or sinus congestion or discharge. Denies throat, tongue, or mouth swelling or difficulty swallowing. CARDIOVASCULAR: Denies chest pain. Denies palpitations or racing or irregular heart beat. Denies ankle edema. RESPIRATORY: Denies cough, cold, or chest congestion. Denies shortness of breath, difficulty breathing, or wheezing. GASTROINTESTINAL: Denies abdominal pain or distention. Denies nausea, vomiting , or diarrhea. Denies blood in vomitus, stools, or per rectum. Denies black, tarry stools. Denies constipation. GENITOURINARY: Denies difficulty urinating, painful urination, burning, frequency, blood in urine, or discharge. MUSCULOSKELETAL: see hpi SKIN: Denies rash, lesions or sores. NEUROLOGICAL: Denies confusion or altered mental status. Denies passing out or loss of consciousness. Denies dizziness or lightheadedness. Denies headache. Denies weakness or paralysis or loss of use of either side. Denies problems with gait or speech. Denies sensory loss, numbness, or tingling. ALL OTHER SYSTEMS REVIEWED AND NEGATIVE. Dictation was performed using [employer] voice recognition software - DERM Skin Color: Normal Past Medical History - Social History Smoking Status: Unknown if Ever Smoked Family History: CAD, COPD, CVA, DM, Hypertension, Malignancy, Thyroid Disfunction. denies: Arthritis, Hyperlipidemia Patient has suicidal ideation: No Patient has homicidal ideation: No - Past Medical History Cardiac Medical History: Reports: Hx Coronary Artery Disease, Hx Heart Attack, Hx Hypercholesterolemia, Hx Hypertension Denies: Hx Atrial Fibrillation, Hx Congestive Heart Failure, Hx DVT Pulmonary Medical History: Reports: Hx Asthma, Hx COPD Endocrine Medical History: Reports: Hx Diabetes Mellitus Type 2 Renal/ Medical History: Denies: Hx Peritoneal Dialysis Musculoskeltal Medical History: Reports Hx Musculoskeletal Deformity, Reports Hx Musculoskeletal Trauma Skin Medical History: 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 Traumatic Medical History: Reports: Hx Fractures - Tibia shoulder and jaw Infectious Medical History: Reports: Hx MRSA Past Surgical History: Reports: Hx Cardiac Catheterization - LAD stent, Hx Cardiac Surgery - stent, Hx Coronary Stent, Hx Orthopedic Surgery - Removal of infection from right thigh - Immunizations Hx Diphtheria, Pertussis, Tetanus Vaccination: No Vertical Provider Document - CONSTITUTIONAL Agree With Documented VS: Yes Notes: PHYSICAL EXAMINATION: GENERAL: Well-appearing, well-nourished and in no acute distress. A&Ox4 LUNGS: Breath sounds clear to auscultation bilaterally and equal. No wheezes rales or rhonchi. HEART: Regular rate and rhythm without murmurs, rubs, gallops. ABDOMEN: Soft, nontender, nondistended abdomen. No guarding, no rebound. No masses appreciated. Normal bowel sounds present. No CVA tenderness bilaterally. No pulsatile mass. Musculoskeletal: Ext b/l: FROM to passive/active. Strength 5+/5. No deficits noted. No bony tenderness of extremities. Back: LROM to passive/active to flexion/ext. Strength 5+/5. No stepoffs, or deformities. + tenderness midline near L2-3. + L-paraspinal mm tenderness and ild spasming. SLR negative b/l. Extremities: No cyanosis, clubbing, or edema b/l. Peripheral pulses 2+. Capillary refill less than 2 seconds. NEUROLOGICAL: Normal speech, ataxic gait. Normal sensory, motor exams. Reflexes 2+ b/l. PSYCH: Normal mood, normal affect. SKIN: Warm, Dry, normal turgor, no rashes or lesions noted. - INFECTION CONTROL TRAVEL OUTSIDE OF THE [place] IN LAST 30 DAYS: No - RESPIRATORY O2 Sat by Pulse Oximetry: 99 Course - Re-evaluation Re-evalutation: 09/04/17 16:59 Patient is an afebrile, well-hydrated, 36-year-old male who presents to the ED with low back pain, suspect sprain versus contusion. Vitals are stable. PE is otherwise unremarkable for any focal neurological deficits. X-ray of the L- spine was unremarkable for any acute pathology. Low suspicion for any meningitis, fracture, expanding/ruptured AAA, cauda equina syndrome, epidural mass lesion/abscess, herniated disc causing severe spinal stenosis, or other systemic infection at this time. Patient is aware that his condition can change from initial presentation and that he needs monitor symptoms closely for any acute changes. Patient has been cussing and swearing the entire time in the room demanding narcotic pain medication. Lidoderm placed today. Patient declined Toradol and decadron. Nurse reports to me that patient is becoming very "mouthy" and disrespectful. Nurse (Yolanda) stated that she will not re-enter the room because of his behavior. Patient declining any NSAIDs as it upsets his stomach. Conservative measures for symptoms. Recheck with your PCM this week. Consider consult with orthopedics and physical therapy. Return to the ED with any worsening/concerning symptoms otherwise as reviewed in discharge. Patient is in agreement. Notified Dr. Green about patient's case and behavior. Dr. Green is in agreement with discharge/plan. 09/04/17 17:12 Pt has a reported history of this kind of behavior because of demanding narcotic pain medications (see April note(s)). - Vital Signs Vital signs: Temp Pulse Resp BP Pulse Ox 97.4 F 84 20 124/84 99 09/04/17 15:41 09/04/17 15:41 09/04/17 15:41 09/04/17 15:41 09/04/17 15:41 Discharge - Discharge Clinical Impression: Low back pain Qualifiers: Chronicity: acute Back pain laterality: unspecified Sciatica presence: unspecified whether sciatica present Qualified Code(s): M54.5 - Low back pain Condition: Stable Disposition: HOME, SELF-CARE Instructions: Ice Packs ([facility]), Low Back Pain ([facility]), Muscle Strain ([facility]), Warm Packs ([facility]) Additional Instructions: Rest, Ice Tylenol/ibuprofen as needed Light stretches daily Strength exercises as able Moist heat and massage may help F/u with your PCP in 3-5 days for a recheck--keep your appointment in 3 days as scheduled. Consider consult(s) with Orthopedics/physical therapy for ongoing/worsening symptoms Return to the ED with any worsening symptoms and/or development of fever, headache, chest pain, palpitations, syncope, shortness of breath, trouble breathing, abdominal pain, n/v/d, blood in stool/urine, loss of control of bowel /bladder, urinary retention, muscle weakness/paralysis, saddle anesthesia, numbness/tingling, or other worsening symptoms that are concerning to you. Referrals: [facility] [Provider Group] - Follow up as needed [facility] [Provider Group] - Follow up as needed
--- NOTE | 2017-09-04 16:55 | RADIOLOGY REPORT (SQ) ---
EXAM DESCRIPTION: L SPINE WHOLE COMPLETED DATE/TIME: 09/04/2017 4:45 pm REASON FOR STUDY: low back pain s/p injury COMPARISON: None. NUMBER OF VIEWS: Five views including obliques. TECHNIQUE: AP, lateral, oblique, and sacral radiographic images acquired of the lumbar spine. LIMITATIONS: None. FINDINGS: MINERALIZATION: Normal. SEGMENTATION: Normal. No transitional anatomy. ALIGNMENT: Mild grade 1 anterolisthesis of L5 on S1. VERTEBRAE: Maintained height. No fracture or worrisome bone lesion. DISCS: Mild disc space narrowing at L3-L4 and L4-L5. POSTERIOR ELEMENTS: Pedicles and facets are intact. Probable pars defects at L5. HARDWARE: None in the spine. PARASPINAL SOFT TISSUES: Normal. PELVIS: Intact as visualized. No fractures or worrisome bone lesions. SI joints intact. OTHER: No other significant finding. IMPRESSION: MILD DEGENERATIVE CHANGES DESCRIBED. NO ACUTE FINDINGS. TECHNICAL DOCUMENTATION: JOB ID: [id number] [employer]- All Rights Reserved
== END 2017-09-04 17:49 | disposition home or self-care (01) ==
LOC: ER 15:39
DX: M54.5 Low back pain (principal); W10.9XXA Fall (on) (from) unspecified stairs and steps, initial encounter; R20.2 Paresthesia of skin; E11.9 Type 2 diabetes mellitus without complications; I25.10 Atherosclerotic heart disease of native coronary artery without angina pectoris; I25.2 Old myocardial infarction; I10 Essential (primary) hypertension; J44.9 Chronic obstructive pulmonary disease, unspecified; Z86.14 Personal history of Methicillin resistant Staphylococcus aureus infection; Z95.5 Presence of coronary angioplasty implant and graft
CPT/HCPCS: 72110; 99283

== ENCOUNTER → 2018-01-26 | Outpatient (CLI) | payer MEDICAID ==
--- NOTE | 2018-01-27 10:06 | RADIOLOGY REPORT (SQ) ---
EXAM DESCRIPTION: MRI CERVICAL SPINE WITHOUT COMPLETED DATE/TIME: 01/26/2018 8:49 pm REASON FOR STUDY: DORSALGIA,UNSPECIFIED; CERVICALGIA M54.9 DORSALGIA, UNSPECIFIED M54.2 CERVICALGI A COMPARISON: None. TECHNIQUE: Sagittal and Axial imaging includes T1, T2, STIR and gradient echo sequences. LIMITATIONS: None. FINDINGS: ALIGNMENT: Normal. VERTEBRAE: Intact. BONE MARROW: Normal. No marrow replacement or reactive changes. DISCS: Diffuse decreased T2 weighted intervertebral disc signal. Disc space loss of height at C6-7 HARDWARE: None in the spine. CORD AND BASE OF BRAIN: There is flattening of the cervical cord at C6-7 with increased intrinsic cor d signal on STIR images 6 through 8, indicating cord edema or myelomalacia. SOFT TISSUES: No soft tissue masses. C1-C2: No significant spinal stenosis. C2-C3: No central stenosis or right foraminal narrowing. Mild left foraminal narrowing from facet an d uncovertebral hypertrophy. C3-C4: No central stenosis. Mild right, high-grade left foraminal narrowing from facet and uncoverte bral hypertrophy C4-C5: Mild diffuse posterior disc bulge and bony spurring. This effaces the ventral thecal sac and causes mild central canal narrowing without cord flattening or abnormal intrinsic cord signal. Mild bilateral foraminal narrowing from facet and uncovertebral hypertrophy C5-C6: Broad diffuse disc bulging is present partly effacing the ventral thecal sac and abutting the ventral cord without cord flattening or abnormal intrinsic cord signal. Mild central canal stenosis. No foraminal narrowing. C6-C7: Broad diffuse posterior disc bulge and bony spurring effaces the ventral thecal sac, flattenin g the ventral cord with abnormal intrinsic increased T2/FLAIR cord signal from edema or myelomalacia. Moderate central canal narrowing. Mild right foraminal narrowing, moderate to high-grade left fora raquel narrowing from facet and uncovertebral hypertrophy C7-T1: Mild diffuse posterior disc bulging partly effaces the ventral thecal sac and abuts the ventra l cord without cord flattening or abnormal intrinsic cord signal. Borderline central canal narrowing . Mild bilateral foraminal narrowing. UPPER THORACIC: Incompletely imaged. No significant spinal stenosis or exit foraminal stenosis. OTHER: No other significant finding. IMPRESSION: Moderate central canal stenosis at C6-7 with cord flattening and increased cord signal f rom edema or myelomalacia. TECHNICAL DOCUMENTATION: JOB ID: [id number] [employer]- All Rights Reserved Reading location - IP/workstation name: [email or web address]
--- NOTE | 2018-01-27 10:09 | RADIOLOGY REPORT (SQ) ---
EXAM DESCRIPTION: MRI LUMBAR SPINE WITHOUT COMPLETED DATE/TIME: 01/26/2018 8:49 pm REASON FOR STUDY: DORSALGIA,UNSPECIFIED; CERVICALGIA M54.9 DORSALGIA, UNSPECIFIED M54.2 CERVICALGI A COMPARISON: None. TECHNIQUE: Sagittal and Axial imaging includes T1, T2, STIR and gradient echo sequences. Coronal T2/ HASTE imaging. LIMITATIONS: Motion artifact, particularly on the axial images FINDINGS: VISUALIZED UPPER ABDOMEN: Motion artifact SEGMENTATION: No transitional anatomy. The lowest well-developed disc space is labeled L5-S1. ALIGNMENT: Bilateral spondylolysis at L5 with grade 1 anterolisthesis of L5 over S1 VERTEBRAE: Intact. BONE MARROW: Normal. No marrow replacement or reactive changes. DISC SIGNAL: Decreased T2 weighted intervertebral disc signal at L3-4, L4-5, and L5-S1 POSTERIOR ELEMENTS: Bilateral spondylolysis at L5 with grade 1 anterolisthesis of L5 over S1. There is bulky bilateral facet arthropathy at L4-5 and L5-S1 with synovial cysts protruding dorsally at th mellissa levels HARDWARE: None in the spine. CORD AND CONUS: Normal in size and signal intensity. Conus at the T12-L1 level. SOFT TISSUES: No aortic aneurysm seen. No bulky retroperitoneal adenopathy or mass. No paraspinal mas s or fluid. L1-L2: No significant spinal stenosis or exit foraminal stenosis. L2-L3: No significant spinal stenosis or exit foraminal stenosis. L3-L4: No significant spinal stenosis or exit foraminal stenosis. Mild bilateral facet arthropathy L4-L5: Mild diffuse posterior disc bulge with a small superimposed central protrusion is present. Mo derate bilateral facet and ligament hypertrophy. No central stenosis. Mild bilateral inferior tori inal narrowing. L5-S1: Bilateral spondylolysis with grade 1 anterolisthesis of L5 over S1. Broad diffuse posterior d isc bulging, moderate bilateral facet hypertrophy. No central stenosis. Mild bilateral foraminal na rrowing. SACRUM: Visualized upper sacrum intact. OTHER: No other significant findings. IMPRESSION: Motion artifact. Degenerative changes lower lumbar spine as above TECHNICAL DOCUMENTATION: JOB ID: [id number] [employer]- All Rights Reserved Reading location - IP/workstation name: [email or web address]
== END ==
LOC: RAD 18:22
PROVIDERS: ATTEND Nurse Practitioner
DX: M54.2 Cervicalgia (principal); M54.9 Dorsalgia, unspecified; M47.896 Other spondylosis, lumbar region; M48.02 Spinal stenosis, cervical region
CPT/HCPCS: 72141; 72148

== ENCOUNTER 2018-01-27 02:55 | Emergency (ER) | payer MEDICAID ==
[2018-01-27] MEDS ORDERED: CLINDAMYCIN HCL 150 MG CAPSULE PO ONE (03:36)
[2018-01-27] MEDS ORDERED: OXYCODONE-ACETAMINOPHEN 5-325 MG TABLET PO ONE (03:37)
[2018-01-27] MEDS ORDERED: LIDOCAINE 1%/EPINEPHRINE INJ 20 ML VIAL INJ ONE (03:37)
[2018-01-27] MEDS ORDERED: DILTIAZEM HCL INJ 25 MG/5 ML VIAL IV ONE (03:56)
--- NOTE | 2018-01-27 03:57 | ER Document Report ---
ED General - General Chief Complaint: Abscess Stated Complaint: POSSIBLE ABSCESS Time Seen by Provider: 01/27/18 03:33 Notes: Patient is a 37-year-old male who presents with complaint of an abscess over the upper gluteal cleft. He has had previous abscesses but never in this area before. It has been there for several days. He says that his did try to pop it at home but now is more red and more swollen. No fevers. Some nausea but no vomiting. No diarrhea. No other complaints at this time. TRAVEL OUTSIDE OF THE [place] IN LAST 30 DAYS: No - Related Data Allergies/Adverse Reactions: codeine [From Tylenol-Codeine #3] Allergy (Verified 01/27/18 03:50) naproxen Allergy (Verified 01/27/18 03:50) tramadol Allergy (Verified 01/27/18 03:50) Past Medical History - Social History Smoking Status: Unknown if Ever Smoked Frequency of alcohol use: None Drug Abuse: None Family History: CAD, COPD, CVA, DM, Hypertension, Malignancy, Thyroid Disfunction. denies: Arthritis, Hyperlipidemia Patient has suicidal ideation: No Patient has homicidal ideation: No - Past Medical History Cardiac Medical History: Reports: Hx Coronary Artery Disease, Hx Heart Attack, Hx Hypercholesterolemia, Hx Hypertension Denies: Hx Atrial Fibrillation, Hx Congestive Heart Failure, Hx DVT Pulmonary Medical History: Reports: Hx Asthma, Hx COPD Endocrine Medical History: Reports: Hx Diabetes Mellitus Type 2 Renal/ Medical History: Denies: Hx Peritoneal Dialysis Musculoskeltal Medical History: Reports Hx Musculoskeletal Deformity, Reports Hx Musculoskeletal Trauma Skin Medical History: 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 RESPIRATORY: Denies cough, cold, or chest congestion. Denies shortness of breath, difficulty breathing, or wheezing. GASTROINTESTINAL: Denies abdominal pain. Denies nausea, vomiting, or diarrhea. Denies constipation. Last BM: MUSCULOSKELETAL: Denies neck or back pain or joint pain or swelling. SKIN: Pilonidal abscess. NEUROLOGICAL: Denies altered mental status or loss of consciousness. ALL OTHER SYSTEMS REVIEWED AND NEGATIVE. Physical Exam - Vital signs Vitals: Temp Pulse Resp BP Pulse Ox 97.9 F 105 H 20 131/91 H 94 01/27/18 02:57 01/27/18 02:57 01/27/18 02:57 01/27/18 02:57 01/27/18 02:57 - Notes Notes: General Appearance: Well nourished, alert, cooperative, no acute distress, moderate obvious discomfort. Vitals: reviewed, See vital signs table. Head: no swelling or tenderness to the head Eyes: PERRL, EOMI, Conjuctiva clear Mouth: No decreasd moisture Lungs: No wheezing, No rales, No rhonci, No accessory muscle use, good air exchange bilaterally. Heart: Normal rate, Regular rythm, No murmur, no rub Abdomen: Normal BS, soft, No rigidity, No abdominal tenderness, No guarding, no rebound, no abdominal masses, no organomegaly Extremities: strength 5/5 in all extremities, good pulses in all extremities, pilonidal abscess approximately 3 cm in diameter. This appears to be in thesuperficial subcutaneous tissue. It does not extend down towards the rectum. Skin: warm, dry, appropriate color, no rash Neuro: speech clear, oriented x 3, normal affect, responds appropriately to questions. Course - Re-evaluation Re-evalutation: 01/27/18 05:09 Incision was made. Abscess was drained. Patient is feeling improved. No packing is needed as to avoid was not very large. Patient will be placed on clindamycin. I will also send him home with pain medication. I encouraged her return to ER if he has any redness swelling, fevers, or feels that he is worsening in any way. Patient agrees with plan will be discharged home. Dictation of this chart was performed using voice recognition software; therefore, there may be some unintended grammatical errors. - Vital Signs Vital signs: Temp Pulse Resp BP Pulse Ox 97.9 F 105 H 20 131/91 H 94 01/27/18 02:57 01/27/18 02:57 01/27/18 02:57 01/27/18 02:57 03/23/18 02:57 Procedures - Incision and Drainage pilonidal Type: Simple Blade size: 11 I&D procedure: Betadine prep applied Incision Method: Incision made by scalpel Amount/type of drainage: 3mls of purulent drainage Discharge - Discharge Clinical Impression: Pilonidal abscess Condition: Good Disposition: HOME, SELF-CARE Additional Instructions: ABSCESS: You have an abscess (boil). This a pus-forming infection, usually due to staph. Some boils may be left to drain on their own, but most require lancing. From the time the tender lump first appears, it may be three or four days before the abscess is ready to jhonathan. Local heat and rest help at this stage of treatment. An antibiotic may prevent spread of the infection. Once the abscess is opened, packing may be placed into it. This is done so pus is not sealed inside by premature closure of the cavity. The packing will be removed at your follow-up visit or you may be advised to remove it yourself at home. Sometimes this packing must be replaced a few times during healing. The wound will heal with surprisingly little scar. Depending on the size and location of an abscess, healing can take one to four weeks. You may shower and wash the area around the incision site two or three times a day. Antibiotics may be prescribed, but are usually not necessary after an abscess has been drained. If you develop fever, chills, worsening pain, or increasing swelling in the area, call the doctor or return immediately. POST INCISION AND DRAINAGE: You have had an incision made to allow drainage of an abscess. The incision must remain open so that pus and debris can drain from the wound. If the abscess cavity is large, packing is placed. This keeps the tissues from collapsing and trapping pus inside, while the body shrinks the cavity. The packing may need to be replaced every day or two. The physician will instruct you on the packing. Keep a bulky dressing over the area. Replace it if it becomes saturated with blood or pus. Do not disturb the packing (if present). You may shower and cleanse the area with gentle soap and warm water two or three times a day. Local warmth may be soothing, and may promote faster healing. Return if you develop high fever or chills, or if you note spreading redness, increasing swelling, or increasing tenderness. ORAL NARCOTIC MEDICATION: You have been given a prescription for pain control. This medication is a narcotic. It's best taken with food, as nausea can result if taken on an empty stomach. Don't operate machinery or drive within six hours of taking this medication. Do not combine this medicine with alcohol, or with any medication which can cause sedation (such as cold tablets or sleeping pills) unless you get permission from the physician. Narcotics tend to cause constipation. If possible, drink plenty of fluids and eat a diet high in fiber and fruits. FOLLOW-UP CARE: Most simple abscesses will not require a follow up visit. If you had packing placed in the abscess, remove it as instructed by the physician. If you have been referred to a physician for follow-up care, call the physicians office for an appointment as you were instructed or within the next two days. If you experience worsening or a significant change in your symptoms, return to the Emergency Department at any time for re-evaluation. Please return to the ER immediately if you have increasing swelling, spreading redness, worsening pain, fevers, or feel unwell. Please follow up with a doctor in 3-4 days for reevaluation. Please change the dressing every day. Prescriptions: Clindamycin HCl 300 mg PO ASDIR #56 capsule Hydrocodone/Acetaminophen [[place] 5-325 mg Tablet] 1 tab PO Q4 PRN #16 tablet PRN Reason: For [employer]: Return to Work
[2018-01-27] MEDS ORDERED: HYDROCODONE/ACETAMINOPHEN 5-325 MG (6 TAB/ER DISP) PO PRN (05:22)
[2018-01-27 05:26] VITALS: BP 129/98
== END 2018-01-27 05:25 | disposition home or self-care (01) ==
LOC: ER 02:55
DX: L05.01 Pilonidal cyst with abscess (principal); R11.0 Nausea; E11.9 Type 2 diabetes mellitus without complications; I25.10 Atherosclerotic heart disease of native coronary artery without angina pectoris; I10 Essential (primary) hypertension; I25.2 Old myocardial infarction; J44.9 Chronic obstructive pulmonary disease, unspecified; Z86.14 Personal history of Methicillin resistant Staphylococcus aureus infection; Z95.5 Presence of coronary angioplasty implant and graft
CPT/HCPCS: 99283; 10080; J3490 ×2

== ENCOUNTER 2018-02-22 19:41 | Emergency (ER) | payer OTHER, MEDICAID ==
[2018-02-22] MEDS ORDERED: MORPHINE SULFATE 10 MG/ML INJ IV ONE (20:15)
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
[2018-02-22 21:00] LABS: ABSOLUTE BASOPHILS # (AUTO) 0.1 10^3/uL (0.0-0.2); ABSOLUTE EOSINOPHILS # (AUTO) 0.1 10^3/uL (0.0-0.6); ABSOLUTE LYMPHOCYTES (AUTO) 3.1 10^3/uL (0.5-4.7); ABSOLUTE MONOCYTES (AUTO) 0.8 10^3/uL (0.1-1.4); ABSOLUTE NEUT (AUTO) 5.8 10^3/uL (1.7-8.2); BASOPHILS % (AUTO) 0.6 % (0-2); EOSINOPHILS % (AUTO) 1.5 % (0-6); HEMATOCRIT 43.9 % (37.9-51.0); HEMOGLOBIN 14.7 g/dL (13.5-17.0); LYMPHOCYTES % (AUTO) 31.6 % (13-45); MEAN CORPUSCULAR HEMOGLOBIN 29.2 pg (27.0-33.4); MEAN CORPUSCULAR HGB CONC 33.6 g/dL (32.0-36.0); MEAN CORPUSCULAR VOLUME 87 fl (80-97); MONOCYTES % (AUTO) 8.3 % (3-13); PLATELET COUNT 207 10^3/uL (150-450); RED BLOOD COUNT 5.05 10^6/uL (4.35-5.55); RED CELL DISTRIBUTION WIDTH 13.2 % (11.5-14.0); TOTAL CELLS COUNTED % (AUTO) 100 %
[2018-02-22 21:18] LABS: ALANINE AMINOTRANSFERASE 21 U/L (21-72); ALBUMIN 4.1 g/dL (3.5-5.0); ALKALINE PHOSPHATASE 93 U/L (38-126); ANION GAP 11 (5-19); ASPARTATE AMINO TRANSFERASE 17 U/L (17-59); BILIRUBIN,DIRECT 0.3 mg/dL (0.0-0.4); BILIRUBIN,TOTAL 0.3 mg/dL (0.2-1.3); BLOOD UREA NITROGEN 21 mg/dL (7-20); CALCIUM 9.7 mg/dL (8.4-10.2); CARBON DIOXIDE 25 mmol/L (22-30); CHLORIDE 92 mmol/L (98-107); POTASSIUM 4.7 mmol/L (3.6-5.0); SODIUM 127.7 mmol/L (137-145); TOTAL PROTEIN 6.5 g/dL (6.3-8.2)
[2018-02-22 21:23] LABS: APPEARANCE,URINE SLIGHTLY-CLOUDY; BILIRUBIN,URINE NEGATIVE (NEGATIVE); COLOR,URINE YELLOW; GLUCOSE, URINE >=500 mg/dL (NEGATIVE); KETONES,URINE NEGATIVE (NEGATIVE); LEUKOCYTE ESTERASE,URINE NEGATIVE (NEGATIVE); NITRITE,URINE NEGATIVE (NEGATIVE); PROTEIN,URINE NEGATIVE (NEGATIVE); UROBILINOGEN,URINE NEGATIVE mg/dL (<2.0)
[2018-02-22 21:29] LABS: GLUCOSE 850 mg/dL (75-110)
[2018-02-22] MEDS ORDERED: NORMAL SALINE 1000 ML 1,000 ML IV PRN (21:30)
[2018-02-22] MEDS ORDERED: METFORMIN HCL 500 MG TABLET PO ONE (21:34)
[2018-02-22 21:40] VITALS: BP 121/75
--- NOTE | 2018-02-22 22:14 | RADIOLOGY REPORT (SQ) ---
EXAM DESCRIPTION: CT ABD/PELVIS WITH IV ONLY COMPLETED DATE/TIME: 02/22/2018 10:01 pm REASON FOR STUDY: left flank injury/hematuria COMPARISON: None. TECHNIQUE: CT scan of the abdomen and pelvis performed using helical scanning technique with dynamic intravenous contrast injection. No oral contrast. Images reviewed with lung, soft tissue, and bone windows. Reconstructed coronal and sagittal MPR images reviewed. Delayed images for evaluation of the urinary system also acquired. All images stored on PACS. All CT scanners at this facility use dose modulation, iterative reconstruction, and/or weight based d osing when appropriate to reduce radiation dose to as low as reasonably achievable (ALARA). [facility]: Dose Right [facility]: CareDose [facility]: Dose Right [facility]: Teradose 4D [facility]: [employer] CONTRAST TYPE AND DOSE: contrast/concentration: Isovue 370.00 mg/ml; Total Contrast Delivered: 100.0 ml; Total Saline Delivered: 24.1 ml RENAL FUNCTION: None required. The patient is less than 50 years old. RADIATION DOSE: CT Rad equipment meets quality standard of care and radiation dose reduction techniq ues were employed. CTDIvol: 8.8 - 12.4 mGy. DLP: 1224 mGy-cm.. LIMITATIONS: None. FINDINGS: LOWER CHEST: No significant findings. No nodules or infiltrates. LIVER: Normal size. No masses. No dilated ducts. SPLEEN: Normal size. No focal lesions. PANCREAS: No masses. No significant calcifications. No adjacent inflammation or peripancreatic fluid collections. Pancreatic duct not dilated. GALLBLADDER: No identified stones by CT criteria. No inflammatory changes to suggest cholecystitis. ADRENAL GLANDS: No significant masses or asymmetry. RIGHT KIDNEY AND URETER: No solid masses. No significant calcifications. No hydronephrosis or hyd roureter. LEFT KIDNEY AND URETER: No solid masses. No significant calcifications. No hydronephrosis or hydr oureter. AORTA AND VESSELS: No aneurysm. No dissection. Renal arteries, SMA, celiac without stenosis. RETROPERITONEUM: No retroperitoneal adenopathy, hemorrhage or masses. BOWEL AND PERITONEAL CAVITY: No masses or inflammatory changes. No free fluid or peritoneal masses. APPENDIX: Normal. PELVIS: No mass. No free fluid. Normal bladder. ABDOMINAL WALL: No masses. No hernias. BONES: No significant or acute findings. OTHER: No other significant finding. IMPRESSION: NO SIGNIFICANT OR ACUTE FINDING IN THE ABDOMEN OR PELVIS ON CT SCAN WITH IV CONTRAST. TECHNICAL DOCUMENTATION: JOB ID: [id number] Quality ID # [id number]: Final reports with documentation of one or more dose reduction techniques (e.g., Au tomated exposure control, adjustment of the mA and/or kV according to patient size, use of iterative reconstruction technique) 2010 [employer]- All Rights Reserved Reading location - IP/workstation name: [email or web address]
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
[2018-02-22] MEDS ORDERED: LIDOCAINE 5% (700 MG) TRANSDERMAL ADH..PATCH TP ONE (22:23)
== END 2018-02-22 22:31 | disposition home or self-care (01) ==
LOC: ER 19:41
DX: S30.1XXA Contusion of abdominal wall, initial encounter (principal); E11.65 Type 2 diabetes mellitus with hyperglycemia; R39.198 Other difficulties with micturition; M54.2 Cervicalgia; G89.29 Other chronic pain; R31.9 Hematuria, unspecified; R35.8 Other polyuria; R63.1 Polydipsia; W19.XXXA Unspecified fall, initial encounter; F17.200 Nicotine dependence, unspecified, uncomplicated; I25.10 Atherosclerotic heart disease of native coronary artery without angina pectoris; I25.2 Old myocardial infarction; I10 Essential (primary) hypertension; J44.9 Chronic obstructive pulmonary disease, unspecified
CPT/HCPCS: 99285; 36415; 85025; 80053; 81001; 74177; J2270

== ENCOUNTER 2018-03-30 20:31 | Emergency (ER) | payer MEDICAID, OTHER ==
[2018-03-30] MEDS ORDERED: ASPIRIN 81 MG TABLET, CHEWABLE PO ONE (20:48)
[2018-03-30 21:07] LABS: ABSOLUTE EOSINOPHILS # (AUTO) 0.1 10^3/uL (0.0-0.6); ABSOLUTE LYMPHOCYTES (AUTO) 2.4 10^3/uL (0.5-4.7); ABSOLUTE MONOCYTES (AUTO) 0.7 10^3/uL (0.1-1.4); ABSOLUTE NEUT (AUTO) 3.8 10^3/uL (1.7-8.2); BASOPHILS % (AUTO) 0.5 % (0-2); HEMATOCRIT 42.8 % (37.9-51.0); HEMOGLOBIN 14.4 g/dL (13.5-17.0); LYMPHOCYTES % (AUTO) 34.8 % (13-45); MEAN CORPUSCULAR HEMOGLOBIN 29.4 pg (27.0-33.4); MEAN CORPUSCULAR HGB CONC 33.7 g/dL (32.0-36.0); MEAN CORPUSCULAR VOLUME 88 fl (80-97); MONOCYTES % (AUTO) 9.5 % (3-13); PLATELET COUNT 176 10^3/uL (150-450); RED BLOOD COUNT 4.89 10^6/uL (4.35-5.55); RED CELL DISTRIBUTION WIDTH 13.6 % (11.5-14.0); SEGMENTED NEUTROPHILS % (AUTO) 54.2 % (42-78); TOTAL CELLS COUNTED % (AUTO) 100 %
--- NOTE | 2018-03-30 21:15 | RADIOLOGY REPORT (SQ) ---
EXAM DESCRIPTION: CHEST SINGLE VIEW COMPLETED DATE/TIME: 03/30/2018 9:03 pm REASON FOR STUDY: chest pain COMPARISON: 07/17/2009 EXAM PARAMETERS: NUMBER OF VIEWS: One view. TECHNIQUE: Single frontal radiographic view of the chest acquired. RADIATION DOSE: NA LIMITATIONS: None. FINDINGS: LUNGS AND PLEURA: No opacities, masses or pneumothorax. No pleural effusion. MEDIASTINUM AND HILAR STRUCTURES: No masses. Contour normal. HEART AND VASCULAR STRUCTURES: Heart normal in size. Normal vasculature. BONES: No acute findings. HARDWARE: None in the chest. OTHER: No other significant finding. IMPRESSION: NO ACUTE RADIOGRAPHIC FINDING IN THE CHEST. TECHNICAL DOCUMENTATION: JOB ID: [id number] [employer]- All Rights Reserved Reading location - IP/workstation name: [email or web address]
[2018-03-30 21:30] LABS: APPEARANCE,URINE CLEAR; BILIRUBIN,URINE NEGATIVE (NEGATIVE); COLOR,URINE STRAW; GLUCOSE, URINE >=500 mg/dL (NEGATIVE); KETONES,URINE NEGATIVE (NEGATIVE); LEUKOCYTE ESTERASE,URINE NEGATIVE (NEGATIVE); NITRITE,URINE NEGATIVE (NEGATIVE); PROTEIN,URINE NEGATIVE (NEGATIVE); URINE SPECIFIC GRAVITY 1.037; UROBILINOGEN,URINE NEGATIVE mg/dL (<2.0)
[2018-03-30 21:45] LABS: ALANINE AMINOTRANSFERASE 28 U/L (21-72); ALBUMIN 3.5 g/dL (3.5-5.0); ALKALINE PHOSPHATASE 68 U/L (38-126); ANION GAP 8 (5-19); ASPARTATE AMINO TRANSFERASE 14 U/L (17-59); BILIRUBIN,DIRECT 0.2 mg/dL (0.0-0.4); BILIRUBIN,TOTAL 0.4 mg/dL (0.2-1.3); BLOOD UREA NITROGEN 10 mg/dL (7-20); CALCIUM 9.2 mg/dL (8.4-10.2); CARBON DIOXIDE 28 mmol/L (22-30); CHLORIDE 98 mmol/L (98-107); CREATINE KINASE 44 U/L (55-170); POTASSIUM 4.1 mmol/L (3.6-5.0); TOTAL PROTEIN 5.5 g/dL (6.3-8.2)
[2018-03-30 21:55] LABS: GLUCOSE 554 mg/dL (75-110)
[2018-03-30 21:56] LABS: CREATINE KINASE MB 1.13 ng/mL (<4.55); TROPONIN I < 0.012 ng/mL
[2018-03-30] MEDS ORDERED: NORMAL SALINE 1000 ML 2,000 ML IV ONE (22:26)
[2018-03-30] MEDS ORDERED: IPRATROPIUM/ALBUTEROL 0.5-2.5 MG/3 ML AMPUL NEB ONE (22:33)
[2018-03-30] MEDS ORDERED: INSULIN REG, HUMAN 100 UNIT/ML 3 ML VIAL (PYX) SUBCUT ONE (23:20)
--- NOTE | 2018-03-31 02:53 | ER Document Report ---
ED General - General Chief Complaint: Chest Pain Stated Complaint: CHEST PAIN Time Seen by Provider: 03/30/18 20:41 Mode of Arrival: Medic Information source: Patient Notes: 37-year-old [place] [facility] [place]. Patient is reporting generalized abdominal pain, epigastric pain, chest pain, shortness of breath and nausea. Patient reports that he also had blood in his stool earlier but is unable to describe if it was dark or bright red. Patient does deny any fever or diarrhea and reports that he had a normal bowel movement yesterday morning. Patient reports that he has been asking to come to the hospital for multiple days and that they have not allowed him to come and be evaluated. Patient reports past medical history of myocardial infarction, multiple hernias, sleep apnea, COPD, bronchitis, asthma, degenerative disc disease, hypertension and diabetes. Patient reports that he has been off of all of his medications for 7 years. TRAVEL OUTSIDE OF THE [place] IN LAST 30 DAYS: No - Related Data Allergies/Adverse Reactions: codeine [From Tylenol-Codeine #3] Allergy (Verified 01/27/18 03:50) ketorolac [From Toradol] Allergy (Verified 02/22/18 19:42) naproxen Allergy (Verified 01/27/18 03:50) tramadol Allergy (Verified 01/27/18 03:50) Past Medical History - General Information source: Patient - Social History Smoking Status: Former Smoker Chew tobacco use (# tins/day): No Frequency of alcohol use: None Drug Abuse: None Family History: CAD, COPD, CVA, DM, Hypertension, Malignancy, Thyroid Disfunction. denies: Arthritis, Hyperlipidemia Patient has suicidal ideation: Yes Patient has homicidal ideation: Yes - Past Medical History Cardiac Medical History: Reports: Hx Coronary Artery Disease, Hx Heart Attack, Hx Hypercholesterolemia, Hx Hypertension Denies: Hx Atrial Fibrillation, Hx Congestive Heart Failure, Hx DVT Pulmonary Medical History: Reports: Hx Asthma, Hx COPD Endocrine Medical History: Reports: Hx Diabetes Mellitus Type 2 Renal/ Medical History: Denies: Hx Peritoneal Dialysis Musculoskeltal Medical History: Reports Hx Musculoskeletal Deformity, Reports Hx Musculoskeletal Trauma Skin Medical History: 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 Traumatic Medical History: Reports: Hx Fractures - Tibia shoulder and jaw Infectious Medical History: Reports: Hx MRSA Past Surgical History: Reports: Hx Cardiac Catheterization - LAD stent, Hx Cardiac Surgery - stent, Hx Coronary Stent, Hx Orthopedic Surgery - Removal of infection from right thigh - Immunizations Hx Diphtheria, Pertussis, Tetanus Vaccination: No Review of Systems - Review of Systems Constitutional: No symptoms reported EENT: No symptoms reported Cardiovascular: See HPI Respiratory: See HPI Gastrointestinal: See HPI Genitourinary: No symptoms reported Male Genitourinary: No symptoms reported Musculoskeletal: No symptoms reported Skin: No symptoms reported Hematologic/Lymphatic: No symptoms reported Neurological/Psychological: No symptoms reported Physical Exam - Vital signs Vitals: Temp 98.5 F 03/30/18 20:38 - Notes Notes: PHYSICAL EXAMINATION: GENERAL: Well-appearing, well-nourished and in no acute distress. HEAD: Atraumatic, normocephalic. EYES: Pupils equal round and reactive to light, extraocular movements intact, sclera anicteric, conjunctiva are normal. ENT: Nares patent, oropharynx clear without exudates. Moist mucous membranes. NECK: Normal range of motion, supple without lymphadenopathy LUNGS: Mild expiratory wheezes, no rales or rhonchi. HEART: Regular rate and rhythm without murmurs ABDOMEN: Soft, nondistended abdomen, with reported generalized tenderness. No guarding, no rebound with palpation. No masses appreciated. Musculoskeletal: Normal range of motion, no pitting or edema. No cyanosis. NEUROLOGICAL: Cranial nerves grossly intact. Normal speech, normal gait. Normal sensory, motor exams PSYCH: Normal mood, normal affect. SKIN: Warm, Dry, normal turgor, no rashes or lesions noted. Course - Re-evaluation Re-evalutation: 37-year-old male presenting [place] [facility] [place] complaints. Patient's physical exam was unremarkable other than mild expiratory wheezing bilaterally, patient does report a long history of smoking. Thorough workup was done on patient. Patient had an initial EKG which revealed a sinus rhythm with no ST segment elevations or depressions, normal axis. Patient's chest x-ray was unremarkable with no consolidation, no findings of pneumonia. CBC was normal. Comprehensive metabolic panel with mild hyponatremia, and elevated blood glucose of 554. Patient is not acidotic and has a normal anion gap. Occult stool was negative. Initial cardiac enzymes were negative. Patient was treated with 2 L normal saline bolus as well as a 15 unit subcutaneous regular insulin bolus. Patient was also given breathing treatments to ease his mild wheezing. Hourly Accu-Cheks were trended and patient's blood glucose did come down to 312. Repeat troponin was negative. Patient's lungs were clear on auscultation after breathing treatments. Patient has asked multiple times for food as he states that the long-term food is "terrible" . Patient denies any abdominal pain and now admits that he has been having hunger pains as he does not like to eat the long-term food. Will discharge patient back [place] [facility] [place] as patient's workup is benign, patient has no signs of acidosis and patient's blood glucose is normalizing after a one-time dose of insulin as well as IV fluids. Patient is encouraged to follow-up with a primary care provider to get reestablished with his medications for his multiple chronic medical conditions. Patient does verbalize understanding of same. Patient is given ED return precautions to include return of chest pain, abdominal pain, worsening shortness of breath, any syncopal episode or development of fever. - Vital Signs Vital signs: Temp Pulse Resp BP Pulse Ox 98.5 F 9 L 116/83 97 03/30/18 20:38 03/31/18 02:01 03/31/18 02:00 03/31/18 02:01 - Laboratory Result Diagrams: 03/30/18 20:20 03/30/18 21:25 Laboratory results interpreted by me: 03/30/18 03/30/18 03/30/18 20:56 21:00 21:25 Sodium 134.0 L Glucose 554 H* POC Glucose 528 H* AST 14 L Creatine Kinase 44 L Total Protein 5.5 L Urine Glucose (UA) >=500 H 03/30/18 03/31/18 03/31/18 23:17 01:17 02:06 Sodium Glucose POC Glucose 502 H* 383 H 312 H AST Creatine Kinase Total Protein Urine Glucose (UA) Discharge - Discharge Clinical Impression: Hyperglycemia Abdominal pain Qualifiers: Abdominal location: generalized Qualified Code(s): R10.84 - Generalized abdominal pain Chest pain Qualifiers: Chest pain type: unspecified Qualified Code(s): R07.9 - Chest pain, unspecified Condition: Stable Disposition: HOME, SELF-CARE Additional Instructions: Abdominal Pain There are many causes of abdominal pain. Pain can mean a serious problem requiring surgery (such as appendicitis). It can also be an innocent problem that goes away on its own (such as a viral infection). Often, time must pass to determine the cause of pain. The physician does not feel that hospitalization is necessary, at present as all of your labs that reflect and abdominal abnormalities were NORMAL. Chest Pain of Unclear Cause The exact cause of your chest pain isn't clear. Fortunately, there is no evidence of a dangerous medical condition. Further testing may be required to find the source of the pain. Your cardiac work-up today was NORMAL. Most often , we find that this pain is coming from the chest wall -- the muscles or rib joints in the chest. But chest pain can come from the lung and lung lining, the esophagus, the heart valves or heart lining, and even the stomach or gallbladder. Rest. Eat lightly until the pain is gone. We may prescribe medicine for pain and inflammation. You should call the physician immediately if the pain radiates to the shoulder, jaw or arms; if you start to run a fever or develop a cough; or if you develop shortness of breath, or other new or alarming symptoms. Hyperglycemia (High Blood Sugar) You have an abnormally high blood sugar. Not all high blood sugar requires long- term treatment. If the doctor feels your high blood sugar might resolve with time, you may not require treatment now. It's very important that you follow through, to see if the blood sugar returns to normal levels. Uncontrolled high blood sugar leads to early heart disease, strokes, nerve damage, eye damage, and kidney damage. Call the physician if there is faintness, excess sleepiness , or very rapid breathing. Please return to the emergency department if you develop worsening symptoms such as shortness of breath, chest pain, persistent abdominal pain, blood in your vomitus or stools or you develop a fever with any of the symptoms. Follow- up with a primary care doctor for further evaluation of your untreated diabetes. Patient is cleared for return to the long-term.
[2018-03-31 03:01] VITALS: BP 116/83
--- NOTE | 2018-03-31 07:34 | EKG REPORT ---
SEVERITY:- NORMAL ECG - SINUS RHYTHM : Confirmed by: Gage Pandya MD 31-Mar-2018 07:34:05
== END 2018-03-31 03:01 | disposition home or self-care (01) ==
LOC: ER 20:31
DX: R10.84 Generalized abdominal pain (principal); R07.9 Chest pain, unspecified; E11.65 Type 2 diabetes mellitus with hyperglycemia; R06.02 Shortness of breath; E87.1 Hypo-osmolality and hyponatremia; R11.0 Nausea; K92.1 Melena; I10 Essential (primary) hypertension; I25.10 Atherosclerotic heart disease of native coronary artery without angina pectoris; I25.2 Old myocardial infarction; J44.9 Chronic obstructive pulmonary disease, unspecified; Z88.5 Allergy status to narcotic agent; Z87.891 Personal history of nicotine dependence; Z95.5 Presence of coronary angioplasty implant and graft
CPT/HCPCS: 93005; 94640; 99285; 96360; 36415; 82553; 82962; 82550; 83690; 85025; 82272; 80053; 81001; 84484; 71045; 93010; J1815; J7030; J7620

== ENCOUNTER 2018-04-21 13:04 | Emergency (ER) | payer SELFPAY ==
[2018-04-21] MEDS ORDERED: NORMAL SALINE 1000 ML 1,000 ML IV ONE (13:31)
--- NOTE | 2018-04-21 13:31 | ER Document Report ---
ED Medical Screen (RME) - General Chief Complaint: Suicidal Ideation Stated Complaint: PSYCH EVAL Time Seen by Provider: 04/21/18 13:29 Notes: RAPID MEDICAL EVALUATION DISCLOSURE I have seen this patient as part of a Rapid Medical Evaluation and, if applicable, placed any initially appropriate orders. The patient will be seen and fully evaluated, including a full history and physical exam, by a provider ( in Main ED or Fast Track) when a room becomes available. 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 He has a plan to kill himself by walking in front of a moving vehicle. He has been hearing the voices of his mother telling him "you are no good go kill yourself". He denies any homicidal ideations. He just got out of care home. States he has not been taking his insulin because he has been out of it "for several years now". EXAM CTAB Minimally tachycardic Appears depressed TRAVEL OUTSIDE OF THE [place] IN LAST 30 DAYS: No - Related Data Allergies/Adverse Reactions: codeine [From Tylenol-Codeine #3] Allergy (Verified 04/21/18 13:06) ketorolac [From Toradol] Allergy (Verified 04/21/18 13:06) naproxen Allergy (Verified 04/21/18 13:06) Penicillins Allergy (Verified 04/21/18 13:06) tramadol Allergy (Verified 04/21/18 13:06) Past Medical History - Past Medical History Cardiac Medical History: Reports: Hx Coronary Artery Disease, Hx Heart Attack, Hx Hypercholesterolemia, Hx Hypertension Denies: Hx Atrial Fibrillation, Hx Congestive Heart Failure, Hx DVT Pulmonary Medical History: Reports: Hx Asthma, Hx COPD Endocrine Medical History: Reports: Hx Diabetes Mellitus Type 2 Renal/ Medical History: Denies: Hx Peritoneal Dialysis Musculoskeltal Medical History: Reports Hx Musculoskeletal Deformity, Reports Hx Musculoskeletal Trauma Skin Medical History: 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 Traumatic Medical History: Reports: Hx Fractures - Tibia shoulder and jaw Infectious Medical History: Reports: Hx MRSA Past Surgical History: Reports: Hx Cardiac Catheterization - LAD stent, Hx Cardiac Surgery - stent, Hx Coronary Stent, Hx Orthopedic Surgery - Removal of infection from right thigh - Immunizations Hx Diphtheria, Pertussis, Tetanus Vaccination: No Physical Exam - Vital signs Vitals: Temp Pulse Resp BP Pulse Ox 98.9 F 109 H 16 123/82 97 04/21/18 13:23 04/21/18 13:23 04/21/18 13:23 04/21/18 13:23 04/21/18 13:23 Course - Vital Signs Vital signs: Temp Pulse Resp BP Pulse Ox 98.9 F 109 H 16 123/82 97 04/21/18 13:23 04/21/18 13:23 04/21/18 13:23 04/21/18 13:23 04/21/18 13:23
[2018-04-21 14:32] LABS: VENOUS BLOOD BASE EXCESS -1.4 mmol/L; VENOUS BLOOD HCO3 24.6 mmol/L (20-32); VENOUS BLOOD PCO2 46.1 mmHg (35-63); VENOUS BLOOD PH 7.35 (7.30-7.42)
[2018-04-21 14:36] LABS: APPEARANCE,URINE CLEAR; BILIRUBIN,URINE NEGATIVE (NEGATIVE); COLOR,URINE YELLOW; GLUCOSE, URINE >=500 mg/dL (NEGATIVE); KETONES,URINE NEGATIVE (NEGATIVE); LEUKOCYTE ESTERASE,URINE NEGATIVE (NEGATIVE); NITRITE,URINE NEGATIVE (NEGATIVE); PROTEIN,URINE NEGATIVE (NEGATIVE); UROBILINOGEN,URINE NEGATIVE mg/dL (<2.0)
[2018-04-21 14:44] LABS: ABSOLUTE EOSINOPHILS # (AUTO) 0.1 10^3/uL (0.0-0.6); ABSOLUTE LYMPHOCYTES (AUTO) 3.1 10^3/uL (0.5-4.7); ABSOLUTE MONOCYTES (AUTO) 0.8 10^3/uL (0.1-1.4); ABSOLUTE NEUT (AUTO) 5.1 10^3/uL (1.7-8.2); BASOPHILS % (AUTO) 0.4 % (0-2); EOSINOPHILS % (AUTO) 1.5 % (0-6); HEMOGLOBIN 14.9 g/dL (13.5-17.0); LYMPHOCYTES % (AUTO) 33.7 % (13-45); MEAN CORPUSCULAR HEMOGLOBIN 29.6 pg (27.0-33.4); MEAN CORPUSCULAR HGB CONC 34.7 g/dL (32.0-36.0); MEAN CORPUSCULAR VOLUME 85 fl (80-97); MONOCYTES % (AUTO) 8.4 % (3-13); PLATELET COUNT 188 10^3/uL (150-450); RED BLOOD COUNT 5.05 10^6/uL (4.35-5.55); RED CELL DISTRIBUTION WIDTH 13.8 % (11.5-14.0); TOTAL CELLS COUNTED % (AUTO) 100 %; WHITE BLOOD COUNT 9.1 10^3/uL (4.0-10.5)
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
[2018-04-21 14:54] LABS: ALANINE AMINOTRANSFERASE 22 U/L (21-72); ALBUMIN 4.5 g/dL (3.5-5.0); ALKALINE PHOSPHATASE 79 U/L (38-126); ANION GAP 16 (5-19); ASPARTATE AMINO TRANSFERASE 12 U/L (17-59); BILIRUBIN,DIRECT 0.3 mg/dL (0.0-0.4); BILIRUBIN,TOTAL 0.4 mg/dL (0.2-1.3); BLOOD UREA NITROGEN 18 mg/dL (7-20); CALCIUM 10.2 mg/dL (8.4-10.2); CARBON DIOXIDE 25 mmol/L (22-30); CHLORIDE 103 mmol/L (98-107); GLUCOSE 331 mg/dL (75-110); SODIUM 143.9 mmol/L (137-145)
[2018-04-21] MEDS ORDERED: INSULIN GLARGINE,HUM.REC.ANLOG 1,000 UNIT/10 ML UNIT SUBCUT ONE (14:54)
[2018-04-21 14:58] LABS: ACETAMINOPHEN < 10 ug/mL (10-30); ALCOHOL < 10 mg/dL (NONE DETECTED); SALICYLATE < 1.0 mg/dL (2.0-20.0); URINE AMPHETAMINES SCREEN NEGATIVE; URINE BARBITURATES SCREEN NEGATIVE; URINE BENZODIAZEPINES SCREEN NEGATIVE; URINE COCAINE SCREEN NEGATIVE; URINE MARIJUANA (THC) SCREEN UNCONFIRMED POSITIVE; URINE METHADONE SCREEN NEGATIVE; URINE PHENCYCLIDINE SCREEN NEGATIVE
[2018-04-21] MEDS ORDERED: NICOTINE 21 MG/24 HR PATCH.TD24 TD ONE (16:33)
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
[2018-04-21 16:52] LABS: URINE AMPHETAMINES SCREEN NEGATIVE; URINE BARBITURATES SCREEN NEGATIVE; URINE BENZODIAZEPINES SCREEN NEGATIVE; URINE COCAINE SCREEN NEGATIVE; URINE MARIJUANA (THC) SCREEN UNCONFIRMED POSITIVE; URINE METHADONE SCREEN NEGATIVE; URINE PHENCYCLIDINE SCREEN NEGATIVE
--- NOTE | 2018-04-21 19:36 | EKG REPORT ---
SEVERITY:- BORDERLINE ECG - SINUS RHYTHM BORDERLINE T ABNORMALITIES, INFERIOR LEADS : Confirmed by: Gage Pandya MD 21-Apr-2018 19:35:45
[2018-04-22 05:54] VITALS: BP 126/77
--- NOTE | 2018-04-22 10:02 | ER Document Report ---
Doctor's Note Notes: 04/22/18 09:58 Rounds: Chart reviewed and patient interviewed. Patient being evaluated for auditory hallucinations and suicidal ID. Also patient is a diabetic, but not currently taking any medications because he cannot afford them. Lab studies showed blood sugar of 341 which is down to 116 after some insulin. Urine drug screen was positive for marijuana. Vital signs are all essentially normal. Patient appears to be medically stable for transfer or discharge. He indicates that there is somebody who is going to help him out with getting his insulin and back on it. Greg Alvarez MD
--- NOTE | 2018-04-22 13:51 | PSYCHOLOGICAL NOTE ---
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 He has a plan to kill himself by walking in front of a moving vehicle. He has been hearing the voices of his mother telling him "you are no good go kill yourself". He denies any homicidal ideations. He just got out of detention. States he has not been taking his insulin because he has been out of it "for several years now". Clinician conducted checking with patient Patient disclosed he is "ready to go home." Patient states that he was just stressed out and had a lot going on. When asked if he taken anything yesterday after he saw clinician patient denied stating he was just "very tired" and had not been sleeping. Patient discloses that he does not feel suicidal anymore and that "I have to get a job and start fixing everything I messed up." Patient discloses he has a plan of action of going to [facility] for continued services for his mental health and substance abuse. He discloses that yesterday he was just very upset because he found out that another man was living in his home. 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 Patient denies suicidal ideation and provided forward thinking when discussing getting a job, changing his behaviors, and obtaining both mental health and substance abuse treatment. Dr. Lema was consult on the care and management of this patient; attending physician is in agreement with recommendations and disposition
== END 2018-04-22 10:18 | disposition home or self-care (01) ==
LOC: ER 13:04
DX: R45.851 Suicidal ideations (principal); E11.65 Type 2 diabetes mellitus with hyperglycemia; Z79.4 Long term (current) use of insulin; Z59.0 Homelessness; I10 Essential (primary) hypertension; J44.9 Chronic obstructive pulmonary disease, unspecified; E11.9 Type 2 diabetes mellitus without complications; F17.200 Nicotine dependence, unspecified, uncomplicated
CPT/HCPCS: 93005; 99285; 96360; 36415; 82962; 80307 ×4; 85025; 80053; 81001; 82803; 93010; J1815; J7030

== ENCOUNTER 2018-04-24 07:53 | Emergency (ER) | payer OTHER ==
[2018-04-24 07:57] VITALS: BP 133/78
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
[2018-04-24] MEDS ORDERED: FENTANYL CITRATE INJ/PF 100 MCG/2 ML AMPUL IV ONE (08:50)
[2018-04-24 09:39] LABS: ABSOLUTE EOSINOPHILS # (AUTO) 0.1 10^3/uL (0.0-0.6); ABSOLUTE LYMPHOCYTES (AUTO) 1.3 10^3/uL (0.5-4.7); ABSOLUTE MONOCYTES (AUTO) 0.5 10^3/uL (0.1-1.4); TOTAL CELLS COUNTED % (AUTO) 100 %
[2018-04-24 09:41] LABS: APPEARANCE,URINE CLEAR; BILIRUBIN,URINE NEGATIVE (NEGATIVE); COLOR,URINE COLORLESS; GLUCOSE, URINE >=500 mg/dL (NEGATIVE); KETONES,URINE NEGATIVE (NEGATIVE); LEUKOCYTE ESTERASE,URINE NEGATIVE (NEGATIVE); NITRITE,URINE NEGATIVE (NEGATIVE); PROTEIN,URINE NEGATIVE (NEGATIVE); UROBILINOGEN,URINE NEGATIVE mg/dL (<2.0)
[2018-04-24 09:44] LABS: BASOPHILS % (AUTO) 0.5 % (0-2); EOSINOPHILS % (AUTO) 1.6 % (0-6); HEMATOCRIT 42.3 % (37.9-51.0); HEMOGLOBIN 14.3 g/dL (13.5-17.0); LYMPHOCYTES % (AUTO) 21.6 % (13-45); MEAN CORPUSCULAR HEMOGLOBIN 30.2 pg (27.0-33.4); MEAN CORPUSCULAR HGB CONC 33.8 g/dL (32.0-36.0); PLATELET COUNT 162 10^3/uL (150-450); RED BLOOD COUNT 4.74 10^6/uL (4.35-5.55); RED CELL DISTRIBUTION WIDTH 14.2 % (11.5-14.0); SEGMENTED NEUTROPHILS % (AUTO) 67.3 % (42-78); WHITE BLOOD COUNT 5.9 10^3/uL (4.0-10.5)
[2018-04-24 09:47] LABS: MEAN CORPUSCULAR VOLUME 89 fl (80-97)
[2018-04-24 10:10] LABS: ALANINE AMINOTRANSFERASE 21 U/L (21-72); ALBUMIN 3.7 g/dL (3.5-5.0); ALKALINE PHOSPHATASE 82 U/L (38-126); ANION GAP 13 (5-19); ASPARTATE AMINO TRANSFERASE 14 U/L (17-59); BILIRUBIN,DIRECT 0.4 mg/dL (0.0-0.4); BILIRUBIN,TOTAL 0.4 mg/dL (0.2-1.3); BLOOD UREA NITROGEN 10 mg/dL (7-20); CARBON DIOXIDE 24 mmol/L (22-30); CHLORIDE 99 mmol/L (98-107); LIPASE 103.4 U/L (23-300); TOTAL PROTEIN 5.9 g/dL (6.3-8.2)
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
[2018-04-24 10:26] LABS: GLUCOSE 786 mg/dL (75-110)
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
[2018-04-24] MEDS ORDERED: INSULIN REG, HUMAN 100 UNIT/ML 3 ML VIAL (PYX) IV ONE (10:44)
[2018-04-24] MEDS ORDERED: NORMAL SALINE 1000 ML 1,000 ML IV ONE (10:44)
== END 2018-04-24 10:53 | disposition left against medical advice (07) ==
LOC: ER 07:53
DX: S76.319A Strain of muscle, fascia and tendon of the posterior muscle group at thigh level, unspecified thigh, initial encounter (principal); S53.402A Unspecified sprain of left elbow, initial encounter; S30.0XXA Contusion of lower back and pelvis, initial encounter; M25.522 Pain in left elbow; R10.11 Right upper quadrant pain; M79.605 Pain in left leg; V13.9XXA Unspecified pedal cyclist injured in collision with car, pick-up truck or van in traffic accident, initial encounter; Y93.55 Activity, bike riding; I10 Essential (primary) hypertension; E11.65 Type 2 diabetes mellitus with hyperglycemia; M43.16 Spondylolisthesis, lumbar region; M47.9 Spondylosis, unspecified; F17.210 Nicotine dependence, cigarettes, uncomplicated; I25.10 Atherosclerotic heart disease of native coronary artery without angina pectoris; J44.9 Chronic obstructive pulmonary disease, unspecified; Z88.5 Allergy status to narcotic agent; Z88.8 Allergy status to other drugs, medicaments and biological substances; Z88.0 Allergy status to penicillin; Z95.5 Presence of coronary angioplasty implant and graft
CPT/HCPCS: 99284; 96374; 36415; 83690; 85025; 80053; 81001; 83036; 73080; 73564; 74177; J3010

== ENCOUNTER 2018-05-13 20:23 | Emergency (ER) | payer SELFPAY ==
[2018-05-13 20:33] VITALS: BP 148/95
[2018-05-13] MEDS ORDERED: HYDROCODONE/ACETAMINOPHEN 5-325 MG (6 TAB/ER DISP) PO PRN (22:12)
--- NOTE | 2018-05-13 22:15 | ER Document Report ---
ED Neck/Back Problem - General Chief Complaint: Back Pain Stated Complaint: BACK PAIN Time Seen by Provider: 05/13/18 21:41 Mode of Arrival: Ambulatory Information source: Patient Notes: 37-year-old male presents to ED for complaint of low back pain. He states he has a history of chronic back pain. He states that he got his last pain medicine from his primary doctor in January or February and then he was in [facility] and did not get up until 3 days ago. He states he has not had any chronic pain management medication for at least 3 months. He states he just wants a few medicines until he can get in to see his doctor. TRAVEL OUTSIDE OF THE [place] IN LAST 30 DAYS: No - HPI Patient complains to provider of: Lower back Onset: Other - Chronic Onset: Chronic Timing: Still present Quality of pain: Sharp, Throbbing Severity: Moderate Pain Level: 3 Recent injury: No Associated symptoms: Like prior neck/back pain, Lower back pain. denies: Incontinence, Motor loss, Numbness/tingling, Radiation to arm, Radiation to chest, Radiation to leg, Sensory loss, Sweaty, Unable to urinate, Upper back pain Exacerbated by: Movement of trunk Relieved by: Nothing Similar symptoms previously: Yes Recently seen / treated by doctor: No - Related Data Allergies/Adverse Reactions: codeine [From Tylenol-Codeine #3] Allergy (Verified 04/24/18 07:54) ketorolac [From Toradol] Allergy (Verified 04/24/18 07:54) naproxen Allergy (Verified 04/24/18 07:54) Penicillins Allergy (Verified 04/24/18 07:54) tramadol Allergy (Verified 04/24/18 07:54) Past Medical History - General Information source: Patient - Social History Smoking Status: Current Every Day Smoker Cigarette use (# per day): Yes - Pack per day Chew tobacco use (# tins/day): No Frequency of alcohol use: None Drug Abuse: None Lives with: Spouse/Significant other - States he just got out of [facility] 3 days ago Family History: CAD, COPD, CVA, DM, Hypertension, Malignancy, Thyroid Disfunction Patient has suicidal ideation: No Patient has homicidal ideation: No - Past Medical History Cardiac Medical History: Reports: Hx Coronary Artery Disease, Hx Heart Attack, Hx Hypercholesterolemia, Hx Hypertension Pulmonary Medical History: Reports: Hx Asthma, Hx COPD EENT Medical History: Reports: None Neurological Medical History: Reports: None Endocrine Medical History: Reports: Hx Diabetes Mellitus Type 2 Renal/ Medical History: Reports: None Malignancy Medical History: Reports None GI Medical History: Reports: None Musculoskeltal Medical History: Reports Hx Musculoskeletal Deformity, Reports Hx Musculoskeletal Trauma Skin Medical History: 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 Psychiatric Medical History: Reports: None Traumatic Medical History: Reports: Hx Fractures - Tibia shoulder and jaw Infectious Medical History: Reports: Hx MRSA Past Surgical History: Reports: Hx Cardiac Catheterization - LAD stent, Hx Cardiac Surgery - stent, Hx Coronary Stent, Hx Orthopedic Surgery - Removal of infection from right thigh - Immunizations Hx Diphtheria, Pertussis, Tetanus Vaccination: No Review of Systems - Review of Systems Constitutional: No symptoms reported EENT: No symptoms reported Cardiovascular: No symptoms reported Respiratory: No symptoms reported Gastrointestinal: No symptoms reported Genitourinary: No symptoms reported Male Genitourinary: No symptoms reported Musculoskeletal: Back pain, Muscle pain, Muscle stiffness Skin: No symptoms reported Hematologic/Lymphatic: No symptoms reported Neurological/Psychological: No symptoms reported -: Yes All other systems reviewed and negative Physical Exam - Vital signs Vitals: Temp Pulse Resp BP Pulse Ox 98.0 F 87 20 148/95 H 94 05/13/18 20:32 05/13/18 20:32 05/13/18 20:32 05/13/18 20:32 05/13/18 20:32 Interpretation: Normal - General General appearance: Appears well, Alert - HEENT Head: Normocephalic, Atraumatic Eyes: Normal Pupils: PERRL - Respiratory Respiratory status: No respiratory distress Chest status: Nontender Breath sounds: Normal Chest palpation: Normal - Cardiovascular Rhythm: Regular Heart sounds: Normal auscultation Murmur: No - Abdominal Inspection: Normal Distension: No distension Bowel sounds: Normal Tenderness: Nontender Organomegaly: No organomegaly - Back Back: Normal, Tender. No: Deformity/step-off, CVA tenderness, Vertebra tenderness, Scars - Extremities General upper extremity: Normal inspection, Nontender, Normal color, Normal ROM , Normal temperature General lower extremity: Normal inspection, Nontender, Normal color, Normal ROM , Normal temperature, Normal weight bearing. 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 I did look up his narcotic database and he had not had a prescription since January or any narcotics. He had some Lyrica prescribed in February and no medications on the narcotic website since then. I treated him with a [facility] dispense pack and is informed him that he needed to follow-up with his primary doctor for any other narcotics or pain medicine. I also gave him a prescription for a few Flexeril. Patient was discharged home to follow-up with his primary doctor. Presentation of a well appearing patient complaining of chronic back pain. No rapid progression of symptoms, systemic symptoms including fevers, chills, weight loss , history of recent bacterial infection, bilateral symptoms, numbness, weakness , difficulty walking, urinary retention or bowel incontinence, personal history of cancer, immunosuppression, known AAA, or history of IV drug use. Exam is without point tenderness over vertebral bodies, pulsatile abdominal mass, and patient has symmetric and intact lower extremity strength, sensation, and reflexes without clonus. 2+ symmetric medial malleolar and dorsalis pedis pulses Based on history and physical, I have a very low suspicion of a concerning etiology of pain including epidural compression syndrome, spinal infection, transverse myelitis, malignancy, abdominal aortic aneurysm, renal colic, acute lower extremity claudication, neurogenic claudication, ankylosing spondylitis, or other intra-abdominal process. Due to absence of concerning risk factors in history and physical as well as absence of rapidly progressive, severe, or bilateral symptoms, will defer imaging at this point. Plan to manage conservatively with outpatient analgesia, analgesia, and physical therapy. - Acetaminophen 650 q 4 + ibuprofen 600 q 6 - Continue normal daily activities as tolerated by pain - Provide with standard musculoskeletal back pain exercise instructions - Instruct to follow up with primary care provider if symptoms not improving - Provide careful return precautions and concerning symptoms to watch for. - Vital Signs Vital signs: Temp Pulse Resp BP Pulse Ox 98.0 F 87 20 148/95 H 94 05/13/18 20:32 05/13/18 20:32 05/13/18 20:32 05/13/18 20:32 05/13/18 20:32 Discharge - Discharge Clinical Impression: Back pain Qualifiers: Back pain location: low back pain Chronicity: chronic Back pain laterality: bilateral Sciatica presence: without sciatica Qualified Code(s): M54.5 - Low back pain Condition: Stable Disposition: HOME, SELF-CARE Instructions: Family Physicians / Practices Additional Instructions: Chronic Pain Control Stress, inactivity, and depression make pain more severe regardless of the cause of the pain. Stress and poor physical condition can cause pain such as headaches and backache. Relaxation: Rest in a quiet place with your eyes closed for 20 minutes twice daily. Concentrate on a pleasant image, or simply "feel" your breathing. Clear your mind. Stress management: Deal with your "stressors." Either take action, or eliminate the stressor from your life. Don't let things hang over you. Accept those things you can't change. Nutrition: Eat small, balanced meals -- don't skip, don't overeat. Meals should be high-carbohydrate, low-sugar, low-fat. Exercise: Exercise helps painful conditions and eases stress. Get 30 minutes of moderate exercise, five days a week. Do an activity that does not flare your pain. Precautions: Pain which continues to disrupt daily activities, or which changes in nature, requires a medical evaluation. Pain Clinic referral is available. We do not manage chronic pain in the Emergency Department. 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 We do not provide repeated medication management of chronic painful conditions. If you wish, we can provide the name of local pain management physicians. Chronic Back Pain Chronic back pain (pain persisting longer than three months) is a common problem. A medical evaluation can look for herniated disc, arthritis, osteoporosis, tumors, and infections. But at least half the time, there's no obvious treatable cause. Anxiety and depression tend to worsen back pain. Ibuprofen or other anti-inflammatory medicine can help. A heating pad, used for 15-20 minutes at a time, can ease pain. For this type of back pain, narcotic medicines should be avoided. Muscle relaxers are rarely helpful unless you're having spasms. Activity is important. Find an aerobic exercise program that your back can tolerate. Too much rest makes back pain worse. Specific back exercises are usually prescribed to strengthen the back and abdominal muscles. Often, a physical therapist can help. Avoid heavy lifting, working while bent over, or standing with both knees straight. Most back pain patients do better with a firm mattress. If new symptoms of a "herniated disc" (radiation of pain, numbness, or tingling down the back of the leg or weakness in the leg) occur, you should be re-examined. LOW BACK PAIN: Three out of every four people will have an episode of disabling back pain during their lifetime. Most commonly the pain is due to straining of the muscles and ligaments in the low back. Usual treatment includes: (1) Rest on a firm surface. Avoid lying on your stomach. (2) Ice pack the painful area. After a few days, gentle heat may be used intermittently to relax the area, or ice packs can be continued. (3) Medication may be needed -- muscle relaxers and antiinflammatory medicines are commonly used. (4) As the back improves, exercises are prescribed to strengthen the back and abdominal muscles. Your doctor will advise you on the proper care for your back at each stage in your recovery. You may be better in a few days -- or healing may take several weeks. If new symptoms of a "herniated disc" (radiation of pain, numbness, or tingling down the back of the leg or weakness in the leg) occur, you should be re-examined. Further testing may be necessary. ORAL NARCOTIC MEDICATION: You have been given a norco disp pack for pain control until you can see you can see your primary md. This medication is a narcotic. It's best taken with food, as nausea can result if taken on an empty stomach. Don't operate machinery or drive within six hours of taking this medication. Do not combine this medicine with alcohol, or with any medication which can cause sedation (such as cold tablets or sleeping pills) unless you get permission from the physician. Narcotics tend to cause constipation. If possible, drink plenty of fluids and eat a diet high in fiber and fruits. Please be aware that prescription narcotics also have the potential for abuse. People become addicted to these medications because of the general sense of wellbeing that they induce. This feeling along with a significant reduction in tension, anxiety, and aggression provides a stimulating seductive quality to these drugs. Once your pain is under control, we encourage you to discard your unused narcotics. MUSCLE RELAXERS: Muscle relaxing medications are usually prescribed for acute muscle spasm or injury to the neck and back. They are often combined with antiinflammatory pain medication for increased relief. You may stop the muscle relaxer when the pain and stiffness have improved. Start the medication again if spasms recur. Muscle relaxers may cause drowsiness, especially with the first dose. Do not operate machinery or drive while under the effects of the medication. Most muscle relaxers last up to 24 hours. Do not combine the medication with alcohol. ICE PACKS: Apply ice packs frequently against the painful area. Many different schedules are recommended, such as "20 minutes on, 20 minutes off" or "one hour ice, two hours rest." If you need to work, you may need to go longer between ice treatments. You should plan to have the area ice packed AT LEAST one fourth of the time. The ice should be applied over the wrap, tape, or splint, or over a layer of cloth -- not directly against the skin. Some ice bags have a built-in cloth and can be put directly on the skin. WARM PACKS: After approximately two days, apply gentle heat (such as a heating pad or hot water bottle) for about 20 to 30 minutes about every two hours -- at least four times daily. Warmth and elevation will help you make a more rapid recovery , and will ease the pain considerably. Do not use HOT heat, and never apply heat for longer than 30 minutes. The continuous heat can invisibly damage skin and muscles -- even when no burn is seen on the surface. Damaged muscles can make you MORE sore. Stretching Exercises for the Back The physician has recommended that you begin stretching exercises for your back. These are often used even while the back is painful. However, you should notify the physician if the activities seem to increase your pain. PELVIC TILT: Lie flat on your back with knees bent. Tighten your stomach and buttock muscles so it flattens your lower back against the floor. Hold 10 seconds. Repeat 10 times, twice daily. KNEE RAISE: Lying on the back with knees bent, raise one knee to your chest, then the other. Hold both knees against the chest 10 seconds, then lower one knee at a time. Repeat 10 times, twice daily. PARTIAL TRUNK RAISE: Lie face down, arms at your sides. Keeping your waist on the floor, use your arms raise your chest up. Support yourself on your elbows for 30 seconds. Repeat twice daily, increasing the time to two minutes as you recover. FOLLOW-UP CARE: If you have been referred to a physician for follow-up care, call the physician s office for an appointment as you were instructed or within the next two days. If you experience worsening or a significant change in your symptoms, notify the physician immediately or return to the Emergency Department at any time for re-evaluation. Prescriptions: Cyclobenzaprine HCl [Flexeril 5 mg Tablet] 5 mg PO TID #15 tablet Forms: Elevated Blood Pressure
== END 2018-05-13 22:41 | disposition home or self-care (01) ==
LOC: ER 20:23
DX: M54.5 Low back pain (principal); F17.210 Nicotine dependence, cigarettes, uncomplicated
CPT/HCPCS: 99283

== ENCOUNTER 2018-06-17 02:25 | Emergency (ER) | payer OTHER ==
[2018-06-17] MEDS ORDERED: METHOCARBAMOL 750 MG TABLET PO ONE (04:12)
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
== END 2018-06-17 04:22 | disposition home or self-care (01) ==
LOC: ER 02:25
DX: T14.8XXA Other injury of unspecified body region, initial encounter (principal); M79.651 Pain in right thigh; M54.6 Pain in thoracic spine; M25.511 Pain in right shoulder; V49.9XXA Car occupant (driver) (passenger) injured in unspecified traffic accident, initial encounter; F17.200 Nicotine dependence, unspecified, uncomplicated; I25.10 Atherosclerotic heart disease of native coronary artery without angina pectoris; I10 Essential (primary) hypertension; I25.2 Old myocardial infarction; E11.9 Type 2 diabetes mellitus without complications; J44.9 Chronic obstructive pulmonary disease, unspecified; Z88.5 Allergy status to narcotic agent; Z88.8 Allergy status to other drugs, medicaments and biological substances; Z88.0 Allergy status to penicillin; Z95.5 Presence of coronary angioplasty implant and graft
CPT/HCPCS: 99283; J3490

== ENCOUNTER 2018-08-01 01:57 | Emergency (ER) | payer SELFPAY ==
[2018-08-01 02:26] VITALS: BP 110/71
[2018-08-01] MEDS ORDERED: NORMAL SALINE 1000 ML 1,000 ML IV PRN (06:30)
[2018-08-01] MEDS ORDERED: ACETAMINOPHEN 325 MG TABLET PO ONE (06:31)
[2018-08-01 07:01] LABS: ABSOLUTE BASOPHILS # (AUTO) 0.1 10^3/uL (0.0-0.2); ABSOLUTE EOSINOPHILS # (AUTO) 0.1 10^3/uL (0.0-0.6); ABSOLUTE LYMPHOCYTES (AUTO) 2.9 10^3/uL (0.5-4.7); ABSOLUTE MONOCYTES (AUTO) 0.7 10^3/uL (0.1-1.4); BASOPHILS % (AUTO) 0.7 % (0-2); EOSINOPHILS % (AUTO) 1.4 % (0-6); HEMATOCRIT 40.1 % (37.9-51.0); HEMOGLOBIN 13.9 g/dL (13.5-17.0); LYMPHOCYTES % (AUTO) 32.9 % (13-45); MEAN CORPUSCULAR HEMOGLOBIN 30.2 pg (27.0-33.4); MEAN CORPUSCULAR HGB CONC 34.8 g/dL (32.0-36.0); MEAN CORPUSCULAR VOLUME 87 fl (80-97); MONOCYTES % (AUTO) 8.1 % (3-13); PLATELET COUNT 177 10^3/uL (150-450); RED BLOOD COUNT 4.61 10^6/uL (4.35-5.55); RED CELL DISTRIBUTION WIDTH 13.3 % (11.5-14.0); SEGMENTED NEUTROPHILS % (AUTO) 56.9 % (42-78); TOTAL CELLS COUNTED % (AUTO) 100 %; WHITE BLOOD COUNT 8.8 10^3/uL (4.0-10.5)
[2018-08-01 07:06] LABS: VENOUS BLOOD BASE EXCESS -1.2 mmol/L; VENOUS BLOOD HCO3 24.8 mmol/L (20-32); VENOUS BLOOD PCO2 46.2 mmHg (35-63); VENOUS BLOOD PH 7.35 (7.30-7.42)
--- NOTE | 2018-08-01 07:09 | ER Document Report ---
ED General - General Chief Complaint: Foot Pain Stated Complaint: PAIN IN FEET Time Seen by Provider: 08/01/18 05:57 TRAVEL OUTSIDE OF THE [place] IN LAST 30 DAYS: No - HPI Notes: Patient is a 37-year-old male that presents to the emergency department for chief complaint of bilateral foot pain. Patient states that he has had pain in both of his feet for the last few years. The pain is getting worse. He states it is a sharp burning sensation. Pain is worse with ambulation and relieved with nothing. He states he has been told in the past that he has neuropathy from his diabetes but has never been placed on medication. He states he has been in senior living and has not been taking any medication for his diabetes. He states he does not check his blood glucose at home or watch his diet. He denies any shortness of breath, chest pain, nausea, vomiting, abdominal pain, fevers and chills. He denies any injury or trauma to his feet. Past Medical History: Diabetes, neuropathy Past Surgical History: Denies Social History: Daily tobacco, occasional marijuana, denies alcohol Family History: Reviewed and noncontributory for presenting illness Allergies: Reviewed, see documented allergy list. REVIEW OF SYSTEMS: CONSTITUTIONAL : No fever No chills No diaphoresis No recent illness EENT: No vision changes No congestion No sore throat CARDIOVASCULAR: No chest pain No palpitations RESPIRATORY: No shortness of breath No cough No difficulty breathing GASTROINTESTINAL: No abdominal pain No nausea No vomiting No diarrhea GENITOURINARY: No dysuria No hematuria No difficulty urinating MUSCULOSKELETAL: No back pain Bilateral foot pain No arm pain SKIN: No rashes No lesions LYMPHATIC: No swollen, enlarged glands. NEUROLOGICAL: No lightheadedness No headache No weakness No paresthesias PSYCHIATRIC: No anxiety No depression PHYSICAL EXAMINATION: Vital signs reviewed, nursing noted reviewed. GENERAL: Well-appearing, well-nourished and in no acute distress. HEAD: Atraumatic, normocephalic. EYES: Eyes appear normal, extraocular movements intact, sclera anicteric, conjunctiva are normal. ENT: nares patent, oropharynx clear without exudates. Moist mucous membranes. NECK: Normal range of motion, supple without lymphadenopathy LUNGS: Breath sounds clear to auscultation bilaterally and equal. No wheezes rales or rhonchi. HEART: Regular rate and rhythm without murmurs ABDOMEN: Soft, nontender, normoactive bowel sounds. No rebound, guarding, or rigidity. No masses appreciated. EXTREMITIES: good range of motion, no pitting or edema. Diffuse bilateral tenderness to palpation of the feet and ankles, no bony deformity or external signs of injury NEUROLOGICAL: No focal neurological deficits. Moves all extremities spontaneously Motor and sensory grossly intact on exam. PSYCH: Normal mood, normal affect. SKIN: Warm, Dry, normal turgor. Right fifth toe blister with no surrounding erythema, intact with no drainage. - Related Data Allergies/Adverse Reactions: codeine [From Tylenol-Codeine #3] Allergy (Verified 04/24/18 07:54) ketorolac [From Toradol] Allergy (Verified 04/24/18 07:54) naproxen Allergy (Verified 04/24/18 07:54) Penicillins Allergy (Verified 04/24/18 07:54) tramadol Allergy (Verified 04/24/18 07:54) Past Medical History - Social History Smoking Status: Unknown if Ever Smoked Family History: CAD, COPD, CVA, DM, Hypertension, Malignancy, Thyroid Disfunction Patient has suicidal ideation: No Patient has homicidal ideation: No - Past Medical History Cardiac Medical History: Reports: Hx Coronary Artery Disease, Hx Heart Attack, Hx Hypercholesterolemia, Hx Hypertension Denies: Hx Atrial Fibrillation, Hx Congestive Heart Failure, Hx DVT Pulmonary Medical History: Reports: Hx Asthma, Hx COPD Endocrine Medical History: Reports: Hx Diabetes Mellitus Type 2 Renal/ Medical History: Denies: Hx Peritoneal Dialysis Musculoskeletal Medical History: Reports Hx Musculoskeletal Deformity, Reports Hx Musculoskeletal Trauma Skin Medical History: 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 Traumatic Medical History: Reports: Hx Fractures - Tibia shoulder and jaw Infectious Medical History: Reports: Hx MRSA Past Surgical History: Reports: Hx Cardiac Catheterization - LAD stent, Hx Cardiac Surgery - stent, Hx Coronary Stent, Hx Orthopedic Surgery - Removal of infection from right thigh - Immunizations Hx Diphtheria, Pertussis, Tetanus Vaccination: No Review of Systems - Review of Systems Notes: Dictated Physical Exam - Vital signs Vitals: Temp Pulse Resp BP Pulse Ox 98.4 F 82 20 110/71 94 08/01/18 02:23 08/01/18 02:23 08/01/18 02:23 08/01/18 02:23 08/01/18 02:23 - Notes Notes: Dictated Course - Re-evaluation Re-evalutation: 08/01/18 07:09 Vitals reviewed. Nursing notes reviewed. Patient given Tylenol for his foot pain. He has an intact blister on his right fifth digit that has no signs of infection and appears to have serous fluid in it. He has no trauma or history of injury and fracture is not suspected therefore x-ray not indicated. Point of care glucose shows BGT at 483. Patient has been noncompliant with medications for his diabetes. He denies ever needing insulin. He states he ate cookies prior to coming into the emergency room. I recommended further blood work and IV hydration for his hyperglycemia to evaluate for possible DKA. He is refusing any further workup including IV and blood draw. Patient became verbally combative. Patient told me that he did not want to see a physician assistant center director, I explained that I was the doctor working in the emergency room today. He did not believe that I was a physician and is requesting to still see a physician. Patient has been combative with staff. He has capacity to understand the risks and benefits of his medical condition The patient has chosen to leave the facility against medical advice. The relevant issues have been reviewed and discussed with the patient. At the time of this assessment there is no indication for involuntary commitment. The patient is alert, oriented, and able to express clearly their reasoning for not wanting to remain in the emergency department for further treatment. The patient is not clinically psychotic, intoxicated, and denies and suicidal ideation. Differential or suspected diagnoses based on medical screening exam: Hyperglycemia and possible DKA The patient is aware of the concerning diagnoses and acknowledges understanding of the reasons for the following recommendations: Blood work and IV hydration The following recommendations/services were offered and refused: Blood work with possible admission to the hospital The following risks were explained: , permanent disability, loss of function Clinical impression: Patient is competent to make decisions regarding the medical that is being offered. - Vital Signs Vital signs: Temp Pulse Resp BP Pulse Ox 98.4 F 82 20 110/71 94 08/01/18 02:23 08/01/18 02:23 08/01/18 02:23 08/01/18 02:23 08/01/18 02:23 - Laboratory Result Diagrams: 08/01/18 06:51 08/01/18 06:51 Discharge - Discharge Clinical Impression: Hyperglycemia, Neuropathy Toe blister without infection Qualifiers: Encounter type: initial encounter Laterality: right Qualified Code(s): S90.424A - Blister (nonthermal), right lesser toe(s), initial encounter Condition: Good Disposition: AGAINST MEDICAL ADVICE Instructions: Hyperglycemia ([facility]), Neuropathy ([facility]), Family Physicians / Practices Additional Instructions: Your blood glucose today is 483. You may have a condition called diabetic ketoacidosis which is life-threatening. Without further blood work and treatment of your hyperglycemia you are putting herself at risk of loss of life , permanent disability and loss of limb. I recommend allowing us to obtain blood work to further evaluate your medical condition. You may potentially need to be admitted to the hospital for further management. You have chosen to leave the hospital AGAINST MEDICAL ADVICE however you can return to the emergency room at any point for further evaluation and treatment. Keep the blister on your right little toe intact and clean. If it opens wash the area well with warm soapy water 1-2 times daily. Return immediately to the emergency room if it appears infected as evidenced by increased redness, pain or swelling. Please return to the emergency department if you have any worsening, or concern of your symptoms. Please return to the emergency department if you develop chest pain, difficulty breathing, severe abdominal pain, or ongoing vomiting. Please follow-up with your primary care physician in 2-3 days and any other recommended physicians. If you have any questions or concerns do not hesitate to return the emergency department for evaluation. []
[2018-08-01 07:29] LABS: ANION GAP 9 (5-19); BLOOD UREA NITROGEN 13 mg/dL (7-20); CALCIUM 9.3 mg/dL (8.4-10.2); CARBON DIOXIDE 28 mmol/L (22-30); CHLORIDE 101 mmol/L (98-107); POTASSIUM 4.1 mmol/L (3.6-5.0); SODIUM 137.9 mmol/L (137-145)
[2018-08-01 07:39] LABS: GLUCOSE 476 mg/dL (75-110)
== END 2018-08-01 07:34 | disposition left against medical advice (07) ==
LOC: ER 01:57
DX: E11.40 Type 2 diabetes mellitus with diabetic neuropathy, unspecified (principal); E11.65 Type 2 diabetes mellitus with hyperglycemia; Z91.14 Patient's other noncompliance with medication regimen; S90.424A Blister (nonthermal), right lesser toe(s), initial encounter; X58.XXXA Exposure to other specified factors, initial encounter; I25.10 Atherosclerotic heart disease of native coronary artery without angina pectoris; I10 Essential (primary) hypertension; J44.9 Chronic obstructive pulmonary disease, unspecified; Z88.5 Allergy status to narcotic agent; Z88.8 Allergy status to other drugs, medicaments and biological substances; Z88.0 Allergy status to penicillin; Z86.14 Personal history of Methicillin resistant Staphylococcus aureus infection; Z95.5 Presence of coronary angioplasty implant and graft; Z53.20 Procedure and treatment not carried out because of patient's decision for unspecified reasons
CPT/HCPCS: 36415; 80048; 82803; 82962; 85025; 99283

== ENCOUNTER 2019-01-09 18:08 | Emergency (ER) | payer SELFPAY ==
[2019-01-09 18:17] VITALS: BP 155/86
[2019-01-09] MEDS ORDERED: HYDROCODONE/ACETAMINOPHEN 5-325 MG TABLET PO ONE (19:06)
--- NOTE | 2019-01-09 19:52 | ER Document Report ---
Entered by JUAN BROWN SCRIBE 01/09/191911 Acting as scribe for:NARESH BLUE DO ED Medical Screen (RME) - General Chief Complaint: Abdominal Pain Stated Complaint: ABDOMINAL PAIN Time Seen by Provider: 01/09/19 18:56 Mode of Arrival: Ambulatory Information source: Patient Notes: Patient is a 38 year old male with type 2 diabetes and a history of 2 MIs presents to the emergency department complaining of urinary incontinence, testicular pain and swelling. Patient states he recently had half of his prostate removed and the other half scraped on 12/20/2018. He states he was placed on a catheter and had it removed on 01/04/2019 by a nursing friend. He states while the catheter was in place he had pain and since its removal he has had urinary incontinence. He states when he attempts to urinate , he can not, and when he has an episode of urinary incontinence it giles. He has yet to follow up with his urologist. He states it is becuase he does not want to pay $100 and because "that anthony does not talk to me". He also complains of a tingling sensation of his right thigh and night sweats. I have greeted and performed a rapid initial assessment of the patient. A comprehensive ED assessment and evaluation of the patient, analysis of test results, and completion of the medical decision making process will be conducted by additional ED providers. GENERAL: Alert, currently wearing a diaper. interacts well. No acute distress. HEAD: Normocephalic, atraumatic. EYES: Pupils equal, round, and reactive to light. Extraocular movements intact. ENT: Oral mucosa moist, tongue midline. NECK: Full range of motion. Supple. Trachea midline. LUNGS: No respiratory distress. NEUROLOGICAL: Alert and oriented x3. Normal speech. PSYCH: Normal affect, normal mood. SKIN: Warm, dry, normal turgor. No rashes or lesions noted. TRAVEL OUTSIDE OF THE [place] IN LAST 30 DAYS: No - Related Data Allergies/Adverse Reactions: codeine [From Tylenol-Codeine #3] Allergy (Verified 04/24/18 07:54) ketorolac [From Toradol] Allergy (Verified 04/24/18 07:54) naproxen Allergy (Verified 04/24/18 07:54) Penicillins Allergy (Verified 04/24/18 07:54) tramadol Allergy (Verified 04/24/18 07:54) Past Medical History - Social History Cigarette use (# per day): Yes - Past Medical History Cardiac Medical History: Reports: Hx Coronary Artery Disease, Hx Heart Attack, Hx Hypercholesterolemia, Hx Hypertension Denies: Hx Atrial Fibrillation, Hx Congestive Heart Failure, Hx DVT Pulmonary Medical History: Reports: Hx Asthma, Hx COPD Endocrine Medical History: Reports: Hx Diabetes Mellitus Type 2 Renal/ Medical History: Denies: Hx Peritoneal Dialysis Musculoskeltal Medical History: Reports Hx Musculoskeletal Deformity, Reports Hx Musculoskeletal Trauma Skin Medical History: 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 Traumatic Medical History: Reports: Hx Fractures - Tibia shoulder and jaw Infectious Medical History: Reports: Hx MRSA Past Surgical History: Reports: Hx Cardiac Catheterization - LAD stent, Hx Cardiac Surgery - stent, Hx Coronary Stent, Hx Orthopedic Surgery - Removal of infection from right thigh - Immunizations Hx Diphtheria, Pertussis, Tetanus Vaccination: No Review of Systems - Review of Systems Constitutional: See HPI, Diaphoresis Genitourinary: See HPI Male Genitourinary: See HPI Neurological/Psychological: See HPI Physical Exam - Vital signs Vitals: Temp Pulse Resp BP Pulse Ox 97.6 F 87 18 155/86 H 99 01/09/19 18:16 01/09/19 18:16 01/09/19 18:16 01/09/19 18:16 01/09/19 18:16 Interpretation: Hypertensive Course - Re-evaluation Re-evalutation: 01/09/19 19:37 Discussed plan with patient to draw blood work, check kidney function, look for signs of infection in his bloodstream and in his urine. Discussed treating pain with [place] 5 mg/325. Patient states that he wants to wait in his car stretched out on the front seat because he is more comfortable laying down. Initially agreed to this plan however I forgot the patient to receive narcotics have to be watched by nursing after receiving narcotics. Nursing did help me out by clarifying this and then nursing spoke with the patient who became quite upset by this, I then spoke with the patient who is quite upset by the fact that I had initially offered a plan that I could not carry through. I did apologize to the patient for offering to treat his pain and let him stay in his car. I told patient that I could either treat his pain with narcotics or I could allow him to stay at his car be called by cell phone. Patient is not satisfied with this plan and would now like to leave AGAINST MEDICAL ADVICE. Patient is aware that leaving could mean that a condition that permanently damages his ability to control his urine would be missed or he may have irreversible damage to his kidneys or we may be missing an infection. 01/09/19 19:49 Patient did speak with Lupis our patient services host while he was in the waiting room and after we discussed with him that we could not give him narcotics and let him stay in his car. Patient told me that he has never talked to anybody while he is in the waiting room and does not believe that we will be keeping an eye on him in the waiting room. 01/09/19 19:51 Patient was offered a Ortega catheter given his urinary incontinence. Patient refused Ortega catheter, states that he is wearing a diaper and would rather wear a diaper. Patient showed me his diaper. Patient does not have any wet spots on his pants at this time that are visible to me. Patient also has no history of trauma and no saddle anesthesia that would indicate need for workup for cauda equina syndrome. - Vital Signs Vital signs: Temp Pulse Resp BP Pulse Ox 97.6 F 87 18 155/86 H 99 01/09/19 18:16 01/09/19 18:16 01/09/19 18:16 01/09/19 18:16 01/09/19 18:16 Doctor's Discharge - Discharge Clinical Impression: Urinary incontinence Qualifiers: Urinary Incontinence type: functional incontinence Qualified Code(s): R39.81 - Functional urinary incontinence Hematuria Qualifiers: Hematuria type: gross Qualified Code(s): R31.0 - Gross hematuria Condition: Stable Disposition: AGAINST MEDICAL ADVICE Additional Instructions: You are choosing to leave without your workup being completed because you do not want to wait in a supervised area when you receive the pain medication that has been ordered. Leaving AGAINST MEDICAL ADVICE could mean that we are missing damage to your kidneys, an infection, problems with your bladder or other problems that could cause permanent damage to your ability to control your urine. Please return at any time should you decide to complete your workup. Please follow-up as soon as possible with your urologist who performed the surgery on your prostate. I personally performed the services described in the documentation, reviewed and edited the documentation which was dictated to the scribe in my presence, and it accurately records my words and actions.
== END 2019-01-09 19:55 | disposition left against medical advice (07) ==
LOC: ER 18:08
DX: R39.81 Functional urinary incontinence (principal); R31.0 Gross hematuria; E11.9 Type 2 diabetes mellitus without complications; R10.9 Unspecified abdominal pain; N50.819 Testicular pain, unspecified; N50.89 Other specified disorders of the male genital organs; R20.0 Anesthesia of skin; I25.2 Old myocardial infarction; Z98.890 Other specified postprocedural states; I25.10 Atherosclerotic heart disease of native coronary artery without angina pectoris; I10 Essential (primary) hypertension; J44.9 Chronic obstructive pulmonary disease, unspecified
CPT/HCPCS: 99283

== ENCOUNTER 2019-01-10 15:45 | Emergency (ER) | payer SELFPAY ==
[2019-01-10] MEDS ORDERED: OXYCODONE-ACETAMINOPHEN 5-325 MG TABLET PO ONE (17:13)
--- NOTE | 2019-01-10 17:13 | ER Document Report ---
ED Medical Screen (RME) - General Chief Complaint: Pelvic Pain Stated Complaint: URINARY ISSUES Time Seen by Provider: 01/10/19 17:02 Notes: 38-year-old male to the emergency department chief complaint of dysuria and generally not feeling well. Patient was hospitalized in [place]. Had a partial prostatectomy due to a sepsis/abscess. Since that time he had a Ortega catheter in. Ortega catheter was removed by a friend who is a nurse. Has been having dysuria since that time. Came in last night but it was extremely busy and he subsequently left. Patient states that he has significant amount of pain and dysuria still. Cannot control his urine with excessive incontinence and having to wear diapers. I have greeted and performed a rapid initial assessment of this patient. A comprehensive ED assessment and evaluation of the patient, analysis of test results and completion of the medical decision making process will be conducted by additional ED providers. TRAVEL OUTSIDE OF THE [place] IN LAST 30 DAYS: No - Related Data Allergies/Adverse Reactions: codeine [From Tylenol-Codeine #3] Allergy (Verified 01/10/19 15:46) ketorolac [From Toradol] Allergy (Verified 01/10/19 15:46) naproxen Allergy (Verified 01/10/19 15:46) Penicillins Allergy (Verified 01/10/19 15:46) tramadol Allergy (Verified 01/10/19 15:46) Past Medical History - Past Medical History Cardiac Medical History: Reports: Hx Coronary Artery Disease, Hx Heart Attack, Hx Hypercholesterolemia, Hx Hypertension Denies: Hx Atrial Fibrillation, Hx Congestive Heart Failure, Hx DVT Pulmonary Medical History: Reports: Hx Asthma, Hx COPD Endocrine Medical History: Reports: Hx Diabetes Mellitus Type 2 Renal/ Medical History: Denies: Hx Peritoneal Dialysis Musculoskeltal Medical History: Reports Hx Musculoskeletal Deformity, Reports Hx Musculoskeletal Trauma Skin Medical History: 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 Traumatic Medical History: Reports: Hx Fractures - Tibia shoulder and jaw Infectious Medical History: Reports: Hx MRSA Past Surgical History: Reports: Hx Cardiac Catheterization - LAD stent, Hx Cardiac Surgery - stent, Hx Coronary Stent, Hx Orthopedic Surgery - Removal of infection from right thigh - Immunizations Hx Diphtheria, Pertussis, Tetanus Vaccination: No Physical Exam - Vital signs Vitals: Temp Pulse Resp BP Pulse Ox 98.4 F 89 16 150/97 H 100 01/10/19 15:54 01/10/19 15:54 01/10/19 15:54 01/10/19 15:54 01/10/19 15:54 Course - Vital Signs Vital signs: Temp Pulse Resp BP Pulse Ox 98.4 F 89 16 150/97 H 100 01/10/19 15:54 01/10/19 15:54 01/10/19 15:54 01/10/19 15:54 01/10/19 15:54
[2019-01-10 18:11] LABS: ABSOLUTE EOSINOPHILS # (AUTO) 0.4 10^3/uL (0.0-0.6); ABSOLUTE LYMPHOCYTES (AUTO) 2.4 10^3/uL (0.5-4.7); ABSOLUTE MONOCYTES (AUTO) 0.6 10^3/uL (0.1-1.4); ABSOLUTE NEUT (AUTO) 4.5 10^3/uL (1.7-8.2); BASOPHILS % (AUTO) 0.5 % (0-2); EOSINOPHILS % (AUTO) 5.2 % (0-6); HEMATOCRIT 38.7 % (37.9-51.0); HEMOGLOBIN 13.4 g/dL (13.5-17.0); MEAN CORPUSCULAR HEMOGLOBIN 30.4 pg (27.0-33.4); MEAN CORPUSCULAR HGB CONC 34.6 g/dL (32.0-36.0); MEAN CORPUSCULAR VOLUME 88 fl (80-97); MONOCYTES % (AUTO) 7.8 % (3-13); PLATELET COUNT 249 10^3/uL (150-450); RED CELL DISTRIBUTION WIDTH 14.3 % (11.5-14.0); SEGMENTED NEUTROPHILS % (AUTO) 56.5 % (42-78); TOTAL CELLS COUNTED % (AUTO) 100 %
[2019-01-10 18:27] LABS: APPEARANCE,URINE SLIGHTLY-CLOUDY; BILIRUBIN,URINE NEGATIVE (NEGATIVE); COLOR,URINE STRAW; GLUCOSE, URINE >=500 mg/dL (NEGATIVE); KETONES,URINE NEGATIVE (NEGATIVE); LEUKOCYTE ESTERASE,URINE LARGE (NEGATIVE); NITRITE,URINE NEGATIVE (NEGATIVE); PROTEIN,URINE NEGATIVE (NEGATIVE); URINE SPECIFIC GRAVITY 1.023; UROBILINOGEN,URINE NEGATIVE mg/dL (<2.0)
[2019-01-10] MEDS ORDERED: PHENAZOPYRIDINE HCL 200 MG TABLET PO ONE (18:31)
[2019-01-10] MEDS ORDERED: CIPROFLOXACIN HCL 500 MG TABLET PO ONE (18:31)
[2019-01-10] MEDS ORDERED: MORPHINE SULFATE 10 MG/ML INJ IM ONE (18:32)
[2019-01-10 18:40] LABS: ALANINE AMINOTRANSFERASE 21 U/L (21-72); ALBUMIN 4.2 g/dL (3.5-5.0); ALKALINE PHOSPHATASE 87 U/L (38-126); ANION GAP 10 (5-19); ASPARTATE AMINO TRANSFERASE 13 U/L (17-59); BILIRUBIN,DIRECT 0.2 mg/dL (0.0-0.4); BILIRUBIN,TOTAL 0.3 mg/dL (0.2-1.3); BLOOD UREA NITROGEN 12 mg/dL (7-20); CALCIUM 9.6 mg/dL (8.4-10.2); CARBON DIOXIDE 28 mmol/L (22-30); CHLORIDE 101 mmol/L (98-107); GLUCOSE 262 mg/dL (75-110); POTASSIUM 4.6 mmol/L (3.6-5.0); TOTAL PROTEIN 6.9 g/dL (6.3-8.2)
--- NOTE | 2019-01-10 20:35 | ER Document Report ---
ED GI/ - General Chief Complaint: Pelvic Pain Stated Complaint: URINARY ISSUES Time Seen by Provider: 01/10/19 20:35 Mode of Arrival: Ambulatory Information source: Patient, Relative Notes: HISTORY OF PRESENT ILLNESS: Patient is a 38-year-old male with a past medical history of several chronic health conditions including recent prostate abscess status post partial prostatectomy who presents with worsening pain in the pelvis. Location: Lower pelvis Onset: Several days ago Alleviation: None Provocation: Movement, urination, defecation Quality: Throbbing, burning Radiation: None Severity: Severe Timing: Constant History of abdominal surgery: Yes Associated symptoms: No fevers or chills, no diarrhea or constipation, does report mild dysuria but no hematuria or pyuria Last bowel movement: Today and normal REVIEW OF SYSTEMS: CONSTITUTIONAL : Denies fever or chills, no sweats. Denies recent illness. EENT: Denies eye, ear, throat, or mouth pain or symptoms. Denies nasal or si nus congestion. CARDIOVASCULAR: Denies chest pain. Denies swelling of the legs. RESPIRATORY: Denies cough, cold, or chest congestion. Denies shortness of breath or difficulty breathing. Denies wheezing. GASTROINTESTINAL: Positive for abdominal pain. Denies nausea, vomiting, or diarrhea. Denies constipation. GENITOURINARY: Positive for painful and burning with urination. MUSCULOSKELETAL: Denies neck or back pain or joint pain or swelling. SKIN: Denies rash or skin lesions. HEMATOLOGIC : Denies easy bruising or bleeding. LYMPHATIC: Denies swollen, enlarged glands. NEUROLOGICAL: Denies altered mental status or loss of consciousness. Denies headache. Denies weakness or paralysis or loss of use of either side. Denies problems with gait or speech. Denies sensory or motor loss. PSYCHIATRIC: Denies anxiety or stress or depression. All other systems reviewed and negative. PHYSICAL EXAMINATION: GENERAL: Appears uncomfortable, well-nourished and in no acute distress. HEAD: Atraumatic, normocephalic. No scalp deformity, depression, or crepitance. EYES: Pupils are 3 mm and equal/round/reactive to light, extraocular movements intact, sclera anicteric, conjunctiva are normal. ENT: Nares patent bilaterally, oropharynx. Moist mucous membranes. No tonsil hypertrophy. NECK: Normal range of motion, supple without lymphadenopathy. LUNGS: Breath sounds present, equal, and clear to auscultation bilaterally. No wheezes, rales, or rhonchi. HEART: Regular rate and rhythm without murmurs, rubs, or gallops. 2+ peripheral pulses. Normal capillary refill. ABDOMEN: Soft and nondistended, mild to moderate suprapubic tenderness. Normoactive bowel sounds. No guarding, no rebound. No masses appreciated. BACK: Normal contour, no midline tenderness. Rectal exam deferred. GENITAL/PELVIC: Normal circumcised penis, no discharge. EXTREMITIES: Normal range of motion, no pitting or edema. No cyanosis. NEUROLOGICAL: No focal neurological deficits. Moves all extremities spontaneou sly and on command. PSYCH: Normal mood, normal affect. No suicidal thoughts/ideations. No homocida l thoughts/ideations. No hallucinations. SKIN: Warm, dry, normal turgor, no rashes or lesions noted. ASSESSMENT AND PLAN: This patient is a 38-year-old male who presents with pelvic pain. Given history, could be recurrent abscess. 1. Will obtain labs, urine, and CT scan of the abdomen/pelvis. 2. Will give IV fluids with pain medications and reassess. TRAVEL OUTSIDE OF THE [place] IN LAST 30 DAYS: No - Related Data Allergies/Adverse Reactions: codeine [From Tylenol-Codeine #3] Allergy (Verified 01/10/19 15:46) ketorolac [From Toradol] Allergy (Verified 01/10/19 15:46) naproxen Allergy (Verified 01/10/19 15:46) Penicillins Allergy (Verified 01/10/19 15:46) tramadol Allergy (Verified 01/10/19 15:46) Past Medical History - General Information source: Patient, Relative - Social History Smoking Status: Current Every Day Smoker Chew tobacco use (# tins/day): No Frequency of alcohol use: Occasional Drug Abuse: Marijuana Lives with: Family Family History: CAD, COPD, CVA, DM, Hypertension, Malignancy, Thyroid Disfunction Patient has suicidal ideation: No Patient has homicidal ideation: No - Past Medical History Cardiac Medical History: Reports: Hx Coronary Artery Disease, Hx Heart Attack, Hx Hypercholesterolemia, Hx Hypertension Denies: Hx Atrial Fibrillation, Hx Congestive Heart Failure, Hx DVT Pulmonary Medical History: Reports: Hx Asthma, Hx COPD EENT Medical History: Reports: None Neurological Medical History: Reports: None Endocrine Medical History: Reports: Hx Diabetes Mellitus Type 2 Renal/ Medical History: Reports: None. Denies: Hx Peritoneal Dialysis Malignancy Medical History: Reports None GI Medical History: Reports: None Musculoskeletal Medical History: Reports Hx Musculoskeletal Deformity, Reports Hx Musculoskeletal Trauma Skin Medical History: 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 Psychiatric Medical History: Reports: None Traumatic Medical History: Reports: Hx Fractures - Tibia shoulder and jaw Infectious Medical History: Reports: Hx MRSA Past Surgical History: Reports: Hx Cardiac Catheterization - LAD stent, Hx Cardiac Surgery - stent, Hx Coronary Stent, Hx Orthopedic Surgery - Removal of infection from right thigh - Immunizations Hx Diphtheria, Pertussis, Tetanus Vaccination: No Physical Exam - Vital signs Vitals: Temp Pulse Resp BP Pulse Ox 98.4 F 89 16 150/97 H 100 01/10/19 15:54 01/10/19 15:54 01/10/19 15:54 01/10/19 15:54 01/10/19 15:54 Course - Re-evaluation Re-evalutation: 01/11/19 01:18 CT scan shows no evidence of acute recurrence of prostatic abscess labs and urine are otherwise unremarkable. Patient will be discharged home with return precautions and follow-up. Patient voices both understanding and agreeing with the plan. - Vital Signs Vital signs: Temp Pulse Resp BP Pulse Ox 98.3 F 88 18 125/74 99 01/10/19 20:41 01/10/19 20:41 01/10/19 20:41 01/10/19 20:41 01/10/19 20:41 - Laboratory Result Diagrams: 01/10/19 17:50 01/10/19 17:50 Laboratory results interpreted by me: 01/10/19 01/10/19 01/10/19 17:50 17:50 17:50 Hgb 13.4 L RDW 14.3 H Glucose 262 H AST 13 L Urine Glucose (UA) >=500 H Urine Blood MODERATE H Ur Leukocyte Esterase LARGE H - Diagnostic Test Radiology reviewed: Image reviewed, Reports reviewed Discharge - Discharge Clinical Impression: Abdominal pain Qualifiers: Abdominal location: generalized Qualified Code(s): R10.84 - Generalized abdominal pain Condition: Good Disposition: HOME, SELF-CARE Instructions: Abdominal Pain ([facility]) Additional Instructions: You have been evaluated in the Emergency Department for lower abdomen and pelvic pain related to your prostate. While here, you had a CAT scan that did not show recurrence of a large fluid collection such as an abscess and it is now safe to be discharged home. Please follow-up with with a primary physician as well as a urologist as instructed. Return to the Emergency Department if you experience worsening pain, high fevers, swelling of the penis, or any other concerning symptoms. Prescriptions: Oxycodone HCl/Acetaminophen [Percocet 5-325 mg Tablet] 1 tab PO Q6HP PRN #20 tablet PRN Reason: For Pain Doxycycline Hyclate 100 mg PO BID #20 capsule Referrals: JIMENA BAUMANN MD [BERNARDO CATES] - Follow up as needed Print Language: Georgian
[2019-01-10] MEDS ORDERED: OXYCODONE HCL IR 5 MG TABLET PO ONE (21:24)
--- NOTE | 2019-01-10 23:04 | RADIOLOGY REPORT (SQ) ---
EXAM DESCRIPTION: CT ABDOMEN PELVIS WITH IV CONTRAST COMPLETED DATE/TME: 01/10/2019 21:24 CLINICAL HISTORY: 38 years, Male, Pelvic pain COMPARISON: 04/24/2018 CT TECHNIQUE: [id number] Images stored on PACS. All CT scanners at this facility use dose modulation, iterative reconstruction, and/or weight based dosing when appropriate to reduce radiation dose to as low as reasonably achievable (ALARA). [facility]: Dose Right [facility]: CareDose [facility]: Dose Right [facility]: Teradose 4D [facility]: [employer] LIMITATIONS: None. FINDINGS: Limited evaluation of the lung bases is unremarkable. Osseous structures are grossly intact. Diffuse fatty infiltrative change to the liver. The spleen, adrenal glands, pancreas, kidneys are unremarkable. The gallbladder is present. Large amount stool in the colon. Normal appendix. No gross evidence for bowel obstruction. The prostate appears mildly enlarged. There are poorly defined cystic changes within the central prostate. Correlate with surgical history. Mild atheromatous change. No free air or free fluid. Subjective urinary bladder wall thickening. Correlate with urinalysis. IMPRESSION: Poorly defined cystic changes of the prostate, which appears slightly enlarged. Correlate with PSA levels and surgical history. Subjective diffuse urinary bladder wall thickening. Correlate with urinalysis. TECHNICAL DOCUMENTATION: Quality ID # [id number]: Final reports with documentation of one or more dose reduction techniques (e.g., Automated exposure control, adjustment of the mA and/or kV according to patient size, use of iterative reconstruction technique) copyright 2010 [employer]- All Rights Reserved
[2019-01-11] MEDS ORDERED: HYDROCODONE/ACETAMINOPHEN 5-325 MG (6 TAB/ER DISP) PO PRN (01:26)
[2019-01-11 01:34] VITALS: BP 118/79
== END 2019-01-11 01:45 | disposition home or self-care (01) ==
LOC: ER 15:45
DX: R10.84 Generalized abdominal pain (principal); R30.0 Dysuria; Z90.79 Acquired absence of other genital organ(s); F17.200 Nicotine dependence, unspecified, uncomplicated; I25.10 Atherosclerotic heart disease of native coronary artery without angina pectoris; I10 Essential (primary) hypertension; J44.9 Chronic obstructive pulmonary disease, unspecified; E11.9 Type 2 diabetes mellitus without complications; Z88.5 Allergy status to narcotic agent; Z88.8 Allergy status to other drugs, medicaments and biological substances; Z88.0 Allergy status to penicillin; Z95.5 Presence of coronary angioplasty implant and graft
CPT/HCPCS: 99284; 96372; 51702; 36415; 87086; 85025; 80053; 81001; 74177; J2270; J3490

== ENCOUNTER 2019-01-16 20:44 | Emergency (ER) | payer SELFPAY ==
[2019-01-16] MEDS ORDERED: SULFAMETHOXAZOLE/TRIMETHOPRIM 800-160 MG TABLET PO ONE (23:37)
[2019-01-16] MEDS ORDERED: OXYCODONE-ACETAMINOPHEN 5-325 MG TABLET PO ONE (23:37)
--- NOTE | 2019-01-16 23:44 | ER Document Report ---
Addendum entered and electronically signed by CARMELLA HAM PA-C 01/17/19 00:08: Discharge - Discharge Clinical Impression: Genitourinary pain, History of prostate disorder, Elevated blood pressure reading, Balanitis Condition: Good Disposition: HOME, SELF-CARE Instructions: Balanitis ([facility]), Prostatitis ([facility]) Additional Instructions: Stop the doxycycline immediately. Start Bactrim again. Pain medication as needed. Ointment as directed around the head of the penis for yeast infection. Prescriptions: Nystatin [Mycostatin Ointment] 1 applic TP BID #1 tube Oxycodone HCl/Acetaminophen [Percocet 5-325 mg Tablet] 1 - 2 tab PO Q4H PRN #15 tablet PRN Reason: Sulfamethoxazole/Trimethoprim [Bactrim Ds Tablet] 1 each PO BID #28 tablet Referrals: GODFREY MCCOY MD [NO LOCAL MD] - Follow up in 3-5 days Original Note: ED General - General Chief Complaint: Urinary Problem Stated Complaint: PROSTATE ISSUES, PAIN, SWELLING Time Seen by Provider: 01/16/19 23:01 Mode of Arrival: Ambulatory Information source: Patient TRAVEL OUTSIDE OF THE [place] IN LAST 30 DAYS: No - HPI Patient complains to provider of: Prostate pain, possible allergic reaction Onset: Last week Onset/Duration: Constant Severity: Severe Pain Level: 4 Context: History of prostatic abscess treatment Associated symptoms: denies: Chills, Diarrhea, Fever, Nausea, Vomiting Relieved by: Denies Similar symptoms previously: Yes Recently seen / treated by doctor: No Notes: 38-year-old male with history of prosthetic abscess treatment comes in tonight with genital pain. He was seen here recently and was put on doxycycline for prostatic infection. He thinks he may be allergic to doxycycline. Having burning and stinging on his scrotum and penis. He is afebrile. No shaking chills. No vomiting. Said the urologist who treated him had him on Bactrim and that seemed to help. - Related Data Allergies/Adverse Reactions: codeine [From Tylenol-Codeine #3] Allergy (Verified 01/10/19 15:46) ketorolac [From Toradol] Allergy (Verified 01/10/19 15:46) naproxen Allergy (Verified 01/10/19 15:46) Penicillins Allergy (Verified 01/10/19 15:46) tramadol Allergy (Verified 01/10/19 15:46) Past Medical History - General Information source: Patient - Social History Smoking Status: Current Every Day Smoker Frequency of alcohol use: None Drug Abuse: None Family History: Reviewed & Not Pertinent, CAD, COPD, CVA, DM, Hypertension, Ma lignancy, Thyroid Disfunction Patient has suicidal ideation: No Patient has homicidal ideation: No - Past Medical History Cardiac Medical History: Reports: Hx Coronary Artery Disease, Hx Heart Attack, Hx Hypercholesterolemia, Hx Hypertension Denies: Hx Atrial Fibrillation, Hx Congestive Heart Failure, Hx DVT Pulmonary Medical History: Reports: Hx Asthma, Hx COPD Endocrine Medical History: Reports: Hx Diabetes Mellitus Type 2 Renal/ Medical History: Denies: Hx Peritoneal Dialysis Musculoskeletal Medical History: Reports Hx Musculoskeletal Deformity, Reports Hx Musculoskeletal Trauma Skin Medical History: 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 Traumatic Medical History: Reports: Hx Fractures - Tibia shoulder and jaw Infectious Medical History: Reports: Hx MRSA Past Surgical History: Reports: Hx Cardiac Catheterization - LAD stent, Hx Cardiac Surgery - stent, Hx Coronary Stent, Hx Orthopedic Surgery - Removal of infection from right thigh - Immunizations Hx Diphtheria, Pertussis, Tetanus Vaccination: No Review of Systems - Review of Systems Notes: Constitutional: No fevers. No chills. EENT: No eye redness. No eye pain. No ear pain. No sore throat. Cardiovascular: No chest pain. No palpitations. Respiratory: No cough. No shortness of breath. No respiratory distress. Gastrointestinal: No abdominal pain. No nausea, vomiting, or diarrhea. Genitourinary: Positive perineal pain. Musculoskeletal: Atraumatic. No swelling. No deformities. Skin: Positive stinging on the scrotum and penis. Lymphatic: No swollen lymph nodes. Neurologic: No headache. No syncope. Psychiatric: No suicidal or homicidal ideation. Physical Exam - Vital signs Vitals: Temp Pulse Resp BP Pulse Ox 98.1 F 89 16 148/95 H 100 01/16/19 21:18 01/16/19 21:18 01/16/19 21:18 01/16/19 21:18 01/16/19 21:18 - Notes Notes: General: Well-developed, well-nourished. In no acute distress. Non-toxic appearing. Cardiac: Well-perfused. Regular rate and rhythm. No murmurs, rubs, or gallops. Pulmonary: No respiratory distress. No cyanosis. Bilateral lung fiels are clear to auscultation. Abdominal: Non-distended. Non-rigid. Bowels sounds are present in all four quadrants. No guarding or rebound. HEENT: Head is atraumatic. Conjunctivae not reddened. No tearing. PERRL. EOMI. Orbits atraumatic. No periorbital swelling or erythema. Oropharynx is without erythema, swelling, or exudates. Neck: Supple. No adenopathy. No meningismus. Dermatologic: Warm with good turgor. No rash. Atraumatic. Chest: Atraumatic. No chest wall tenderness to palpation. Musculoskeletal: Moves all extremities well. No range of motion deficits. no muscular or joint tenderness. No paraspinal muscle tenderness. no midline spinal tenderness or step-off. Genitourinary: Scrotum and the penis are visualized and examined. There is no evidence of any skin rash or sloughing. There is a small amount of white cheesy material under the head of the penis which is likely yeast. There is no abscess, cellulitis, or gangrene anywhere on the exam. There were no testicular masses. There is no tenderness of the testicles. Prostatic exam was deferred per patient request Neurologic: No gross neurologic deficits. Psychiatric: Normal mood. Course - Re-evaluation Re-evalutation: 01/16/19 23:44 Patient does not have any fevers or chills. No vomiting. Vital signs are stable. He does not have any signs of an infection on the penis or testicles. I believe his story about having some prostatic infections in the past. It sounds like his specialist, who was not local, was successfully treating him with Bactrim. When he came in here the last time he was put on doxycycline which he thinks may be causing some allergic reaction. No allergic reaction was noted. We will switch him back to Bactrim since that is the preferred antibio tic of the urologist. We will also send him home with couple days of Percocet. - Vital Signs Vital signs: Temp Pulse Resp BP Pulse Ox 98.1 F 89 16 148/95 H 100 01/16/19 21:18 01/16/19 21:18 01/16/19 21:18 01/16/19 21:18 01/16/19 21:18 Discharge - Discharge Clinical Impression: Genitourinary pain, History of prostate disorder, Elevated blood pressure reading Condition: Good Disposition: HOME, SELF-CARE Instructions: Prostatitis ([facility]), Balanitis ([facility]) Additional Instructions: Stop the doxycycline immediately. Start Bactrim again. Pain medication as needed. Ointment as directed around the head of the penis for yeast infection. Prescriptions: Oxycodone HCl/Acetaminophen [Percocet 5-325 mg Tablet] 1 - 2 tab PO Q4H PRN #15 tablet PRN Reason: Sulfamethoxazole/Trimethoprim [Bactrim Ds Tablet] 1 each PO BID #28 tablet Referrals: GODFREY MCCOY MD [NO LOCAL MD] - Follow up in 3-5 days
[2019-01-17 00:12] VITALS: BP 158/89
== END 2019-01-17 00:12 | disposition home or self-care (01) ==
LOC: ER 20:44
DX: N48.1 Balanitis (principal); R39.89 Other symptoms and signs involving the genitourinary system; R03.0 Elevated blood-pressure reading, without diagnosis of hypertension
CPT/HCPCS: 99283

== ENCOUNTER 2019-02-16 22:33 | Emergency (ER) | payer OTHER ==
[2019-02-16 22:48] VITALS: BP 139/92
--- NOTE | 2019-02-17 00:18 | ER Document Report ---
ED General - General Chief Complaint: Inability to Void Stated Complaint: URINATION PROBLEMS Time Seen by Provider: 02/16/19 23:37 Notes: Patient is a 38-year-old male with past medical history of prostate abscess who [facility] to concerns of inability to void. Patient states that he has been drinking fluids throughout the day but has not made hardly any urine and is concerned that he is not voiding. He also complains of a throbbing, aching, mild discomfort to his lower abdomen which he describes as a feeling of a full bladder that needs empty. He has not had fever or constitutional symptoms. Attributes his symptoms to not having access to his Lasix due to recently being arrested. Nothing improves his symptoms. TRAVEL OUTSIDE OF THE [place] IN LAST 30 DAYS: No - Related Data Allergies/Adverse Reactions: codeine [From Tylenol-Codeine #3] Allergy (Verified 01/10/19 15:46) ketorolac [From Toradol] Allergy (Verified 01/10/19 15:46) naproxen Allergy (Verified 01/10/19 15:46) Penicillins Allergy (Verified 01/10/19 15:46) tramadol Allergy (Verified 01/10/19 15:46) Past Medical History - General Information source: Patient - Social History Smoking Status: Current Every Day Smoker Frequency of alcohol use: None Drug Abuse: Marijuana, Methamphetamine Lives with: Other - Care Home Family History: Reviewed & Not Pertinent, CAD, COPD, CVA, DM, Hypertension, Malignancy, Thyroid Disfunction Patient has suicidal ideation: No Patient has homicidal ideation: No - Past Medical History Cardiac Medical History: Reports: Hx Coronary Artery Disease, Hx Heart Attack, Hx Hypercholesterolemia, Hx Hypertension Denies: Hx Atrial Fibrillation, Hx Congestive Heart Failure, Hx DVT Pulmonary Medical History: Reports: Hx Asthma, Hx COPD Endocrine Medical History: Reports: Hx Diabetes Mellitus Type 2 Renal/ Medical History: Denies: Hx Peritoneal Dialysis Musculoskeletal Medical History: Reports Hx Musculoskeletal Deformity, Reports Hx Musculoskeletal Trauma Skin Medical History: 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 Traumatic Medical History: Reports: Hx Fractures - Tibia shoulder and jaw Infectious Medical History: Reports: Hx MRSA Past Surgical History: Reports: Hx Cardiac Catheterization - LAD stent, Hx Cardiac Surgery - stent, Hx Coronary Stent, Hx Orthopedic Surgery - Removal of infection from right thigh - Immunizations Hx Diphtheria, Pertussis, Tetanus Vaccination: No Review of Systems - Review of Systems Notes: Constitutional: Negative for fever. HENT: Negative for sore throat. Eyes: Negative for visual changes. Cardiovascular: Negative for chest pain. Respiratory: Negative for shortness of breath. Gastrointestinal: Positive for lower abdominal discomfort Genitourinary: Positive for urinary hesitancy Musculoskeletal: Negative for back pain. Skin: Negative for rash. Neurological: Negative for headaches, weakness or numbness. 10 point ROS negative except as marked above and in HPI. Physical Exam - Vital signs Vitals: Temp Pulse Resp BP Pulse Ox 98.4 F 85 19 139/92 H 100 02/16/19 22:47 02/16/19 22:47 02/16/19 22:47 02/16/19 22:47 02/16/19 22:47 Interpretation: Normal Notes: PHYSICAL EXAMINATION: GENERAL: Well-appearing, well-nourished and in no acute distress. HEAD: Atraumatic, normocephalic. EYES: Pupils equal round and reactive to light, extraocular movements intact, sclera anicteric, conjunctiva are normal. ENT: nares patent, oropharynx clear without exudates. Moist mucous membranes. NECK: Normal range of motion, supple without lymphadenopathy LUNGS: Breath sounds clear to auscultation bilaterally and equal. No wheezes rales or rhonchi. HEART: Regular rate and rhythm without murmurs ABDOMEN: Soft, nontender, normoactive bowel sounds. No guarding, no rebound. No masses appreciated. EXTREMITIES: Normal range of motion, no pitting or edema. No cyanosis. NEUROLOGICAL: No focal neurological deficits. Moves all extremities spontaneously and on command. PSYCH: Normal mood, normal affect. SKIN: Warm, Dry, normal turgor, no rashes or lesions noted. Course - Re-evaluation Re-evalutation: 02/17/19 00:16 Patient presents complaining that he has been unable to empty his bladder. States that he was pulled over by the police, they would not let him get his Lasix and therefore he has been unable to urinate. Notably the patient did urinate here in the emergency department without any difficulty on his own 220 cc of urine. A postvoid residual bedside ultrasound was completed thereafter showing only 30 cc of urine in the bladder. The patient appears not to have any component of urinary retention today. I do not believe any labs or imaging is indicated at this point. I have advised the patient that he is urinating normally and needs to follow-up with his primary care doctor for any additional concerns. He will be [facility] back to [facility]. - Vital Signs Vital signs: Temp Pulse Resp BP Pulse Ox 98.4 F 85 19 139/92 H 100 02/16/19 22:47 02/16/19 22:47 02/16/19 22:47 02/16/19 22:47 02/16/19 22:47 Discharge - Discharge Clinical Impression: Urinary hesitancy Condition: Good Disposition: HOME, SELF-CARE Additional Instructions: You are fully emptying your bladder. You were able to urinate 220 cc of clear yellow urine and do not have any remaining urine in your bladder on ultrasound after you urinated. Return for any additional concerns you may have.
== END 2019-02-17 00:25 | disposition home or self-care (01) ==
LOC: ER 22:33
DX: R39.11 Hesitancy of micturition (principal); R10.30 Lower abdominal pain, unspecified; F17.200 Nicotine dependence, unspecified, uncomplicated; E78.00 Pure hypercholesterolemia, unspecified; I25.10 Atherosclerotic heart disease of native coronary artery without angina pectoris; E11.9 Type 2 diabetes mellitus without complications; I10 Essential (primary) hypertension; Z88.0 Allergy status to penicillin; Z88.6 Allergy status to analgesic agent; Z86.14 Personal history of Methicillin resistant Staphylococcus aureus infection; I25.2 Old myocardial infarction
CPT/HCPCS: 99283

== ENCOUNTER 2019-02-21 21:33 | Emergency (ER) | payer OTHER ==
[2019-02-22] MEDS ORDERED: ACETAMINOPHEN 325 MG TABLET PO ONE (00:20)
[2019-02-22] MEDS ORDERED: MORPHINE SULFATE 10 MG/ML INJ IV ONE (02:50)
[2019-02-22 03:22] LABS: ABSOLUTE EOSINOPHILS # (AUTO) 0.2 10^3/uL (0.0-0.6); ABSOLUTE LYMPHOCYTES (AUTO) 3.2 10^3/uL (0.5-4.7); ABSOLUTE MONOCYTES (AUTO) 0.6 10^3/uL (0.1-1.4); ABSOLUTE NEUT (AUTO) 4.6 10^3/uL (1.7-8.2); BASOPHILS % (AUTO) 0.5 % (0-2); EOSINOPHILS % (AUTO) 2.1 % (0-6); HEMATOCRIT 39.6 % (37.9-51.0); HEMOGLOBIN 13.8 g/dL (13.5-17.0); MEAN CORPUSCULAR HEMOGLOBIN 29.4 pg (27.0-33.4); MEAN CORPUSCULAR HGB CONC 34.9 g/dL (32.0-36.0); MEAN CORPUSCULAR VOLUME 85 fl (80-97); MONOCYTES % (AUTO) 7.4 % (3-13); PLATELET COUNT 172 10^3/uL (150-450); RED BLOOD COUNT 4.68 10^6/uL (4.35-5.55); RED CELL DISTRIBUTION WIDTH 13.2 % (11.5-14.0); TOTAL CELLS COUNTED % (AUTO) 100 %; WHITE BLOOD COUNT 8.8 10^3/uL (4.0-10.5)
[2019-02-22 03:40] LABS: ALANINE AMINOTRANSFERASE 17 U/L (21-72); ALBUMIN 3.4 g/dL (3.5-5.0); ALKALINE PHOSPHATASE 59 U/L (38-126); ANION GAP 6 (5-19); ASPARTATE AMINO TRANSFERASE 12 U/L (17-59); BILIRUBIN,DIRECT 0.2 mg/dL (0.0-0.4); BILIRUBIN,TOTAL 0.4 mg/dL (0.2-1.3); BLOOD UREA NITROGEN 14 mg/dL (7-20); CALCIUM 8.9 mg/dL (8.4-10.2); CARBON DIOXIDE 26 mmol/L (22-30); CHLORIDE 101 mmol/L (98-107); GLUCOSE 379 mg/dL (75-110); POTASSIUM 4.3 mmol/L (3.6-5.0); SODIUM 133.3 mmol/L (137-145); TOTAL PROTEIN 5.9 g/dL (6.3-8.2)
[2019-02-22 04:07] LABS: APPEARANCE,URINE CLEAR; BILIRUBIN,URINE NEGATIVE (NEGATIVE); COLOR,URINE STRAW; GLUCOSE, URINE >=500 mg/dL (NEGATIVE); KETONES,URINE NEGATIVE (NEGATIVE); LEUKOCYTE ESTERASE,URINE NEGATIVE (NEGATIVE); NITRITE,URINE NEGATIVE (NEGATIVE); PROTEIN,URINE NEGATIVE (NEGATIVE); URINE SPECIFIC GRAVITY 1.024; UROBILINOGEN,URINE NEGATIVE mg/dL (<2.0)
[2019-02-22] MEDS ORDERED: INSULIN REG, HUMAN 100 UNIT/ML 3 ML VIAL (PYX) SUBCUT ONE (04:28)
[2019-02-22] MEDS ORDERED: FENTANYL CITRATE INJ/PF 100 MCG/2 ML AMPUL IV ONE (04:29)
--- NOTE | 2019-02-22 04:33 | ER Document Report ---
ED General - General Chief Complaint: Rectal Bleeding Stated Complaint: RECTAL BLEEDING Time Seen by Provider: 02/22/19 02:41 Notes: Patient is a 38-year-old male who presents with complaint of pain in his lower abdomen pelvis region. He says that this pain in the past. 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 He says that he does some blood coming from the tip of his penis and also some blood in his stool recently. No fevers. No vomiting. No diarrhea. No other complaints at this time. Surgery was done just over a month ago. TRAVEL OUTSIDE OF THE [place] IN LAST 30 DAYS: No - Related Data Allergies/Adverse Reactions: codeine [From Tylenol-Codeine #3] Allergy (Verified 01/10/19 15:46) ketorolac [From Toradol] Allergy (Verified 01/10/19 15:46) naproxen Allergy (Verified 01/10/19 15:46) Penicillins Allergy (Verified 01/10/19 15:46) tramadol Allergy (Verified 01/10/19 15:46) Past Medical History - Social History Smoking Status: Unknown if Ever Smoked Frequency of alcohol use: None Drug Abuse: None Family History: Reviewed & Not Pertinent, CAD, COPD, CVA, DM, Hypertension, Malignancy, Thyroid Disfunction Patient has suicidal ideation: No Patient has homicidal ideation: No - Past Medical History Cardiac Medical History: Reports: Hx Coronary Artery Disease, Hx Heart Attack, Hx Hypercholesterolemia, Hx Hypertension Denies: Hx Atrial Fibrillation, Hx Congestive Heart Failure, Hx DVT Pulmonary Medical History: Reports: Hx Asthma, Hx COPD Endocrine Medical History: Reports: Hx Diabetes Mellitus Type 2 Renal/ Medical History: Denies: Hx Peritoneal Dialysis Musculoskeletal Medical History: Reports Hx Musculoskeletal Deformity, Reports Hx Musculoskeletal Trauma Skin Medical History: 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 Denies recent illness. RESPIRATORY: Denies cough, cold, or chest congestion. Denies shortness of breath, difficulty breathing, or wheezing. GASTROINTESTINAL: Pain into the lower abdomen pelvic region. GENITOURINARY: Has noticed blood in urine. MUSCULOSKELETAL: Denies neck or back pain or joint pain or swelling. SKIN: Denies rash or skin lesions. NEUROLOGICAL: Denies altered mental status or loss of consciousness. Denies headache. Denies weakness or paralysis or loss of use of either side. Denies problems with gait or speech. Denies sensory or motor loss. ALL OTHER SYSTEMS REVIEWED AND NEGATIVE. Physical Exam - Vital signs Vitals: Temp Pulse Resp BP Pulse Ox 97.7 F 79 16 127/78 H 100 02/21/19 23:06 02/21/19 23:06 02/21/19 23:06 02/21/19 23:06 02/21/19 23:06 - Notes Notes: General Appearance: Well nourished, alert, cooperative, no acute distress, moderate obvious discomfort. Vitals: reviewed, See vital signs table. Eyes: PERRL, EOMI, Conjuctiva clear Lungs: No wheezing, No rales, No rhonci, No accessory muscle use, good air exchange bilaterally. Heart: Normal rate, Regular rythm, No murmur, no rub Abdomen: Normal BS, soft, No rigidity, palpation over the suprapubic region of the abdomen. Remainder of abdomen is nontender., No guarding, no rebound, no abdominal masses, no organomegaly Rectal exam: No gross blood on exam. No dried blood around the rectal area. Genital: No redness or swelling to the penis. No gross blood coming from the urethra. Extremities: good pulses in all extremities, no swelling or tenderness in the extremities, no edema. Skin: warm, dry, appropriate color, no rash Neuro: speech clear, oriented x 3, normal affect, responds appropriately to questions. Course - Re-evaluation Re-evalutation: 02/22/19 05:[address] scan does not show any concerning findings. It does show that he does have some large amount of stool burden. He said that he start taking MiraLAX yesterday at the retirement. I encouraged him to continue take this and to drink lots of water. I do not see any evidence of infection that he has no fever, no leukocytosis, negative CT scan. I do not see evidence of heavy bleeding as he has no dried blood or gross blood on rectal exam and his hemoglobin is normal. I feel he safe to be discharged home. I encouraged him return to ER if he has worsening pain, fevers, vomiting, or large amounts of blood in the stool. Patient agrees with plan and will be discharged home. Dictation of this chart was performed using voice recognition software; therefore, there may be some unintended grammatical errors. - Vital Signs Vital signs: Temp Pulse Resp BP Pulse Ox 97.9 F 65 16 108/79 99 02/22/19 03:27 02/22/19 03:27 02/22/19 03:27 02/22/19 03:27 02/22/19 03:27 - Laboratory Result Diagrams: 02/22/19 03:10 02/22/19 03:10 Laboratory results interpreted by me: 02/22/19 02/22/19 03:10 03:23 Sodium 133.3 L Glucose 379 H AST 12 L ALT 17 L Total Protein 5.9 L Albumin 3.4 L Urine Glucose (UA) >=500 H Discharge - Discharge Clinical Impression: Abdominal pain Qualifiers: Abdominal location: lower abdomen, unspecified Qualified Code(s): R10.30 - Lower abdominal pain, unspecified Condition: Good Disposition: HOME, SELF-CARE Additional Instructions: Your CT scan does not show any concerning findings in regards to your prostate. It does show that you have a large amount of stool in the colon and near the rectum. We will have you continue to take MiraLAX at the retirement. Please take it twice a day. Please drink lots of water. You can stop taking the MiraLAX when your stool starts to become very soft or liquid form. Please return to ER immediately if you have fevers, vomiting, large amounts of blood in the stool, or if you feel that you are worsening in any way.
--- NOTE | 2019-02-22 05:37 | RADIOLOGY REPORT (SQ) ---
EXAM DESCRIPTION: CT PELVIS WITH IV CONTRAST COMPLETED DATE/TME: 02/22/2019 04:28 CLINICAL HISTORY: 38 years, Male, pain in pelvic region. Hx of previous prostat surg COMPARISON: 01/10/2019 CT TECHNIQUE: 464 Images stored on PACS. All CT scanners at this facility use dose modulation, iterative reconstruction, and/or weight based dosing when appropriate to reduce radiation dose to as low as reasonably achievable (ALARA). [facility]: Dose Right [facility]: CareDose [facility]: Dose Right [facility]: Teradose 4D [facility]: Next [employer] LIMITATIONS: None. FINDINGS: Mild/moderate atheromatous changes. Normal appendix partially visualized. Large amount of stool in the colon and rectal vault. Subjective urinary bladder wall thickening. Postsurgical changes consistent with prior TURP. No free air or free fluid in the pelvis. Pars defects at the L5-S1 level with grade 1 spondylolisthesis. Mild diffuse urinary bladder wall thickening could reflect minor cystitis. Correlate with urinalysis. IMPRESSION: Large amount of stool in the colon and rectal vault. Post-TURP changes. Mild diffuse urinary bladder wall thickening. Correlate with urinalysis. TECHNICAL DOCUMENTATION: Quality ID # [id number]: Final reports with documentation of one or more dose reduction techniques (e.g., Automated exposure control, adjustment of the mA and/or kV according to patient size, use of iterative reconstruction technique) copyright 2011 [employer]- All Rights Reserved
[2019-02-22 06:05] VITALS: BP 110/72
== END 2019-02-22 06:06 | disposition home or self-care (01) ==
LOC: ER 21:33
DX: R10.30 Lower abdominal pain, unspecified (principal); K62.5 Hemorrhage of anus and rectum; Z88.0 Allergy status to penicillin; Z88.6 Allergy status to analgesic agent; I25.10 Atherosclerotic heart disease of native coronary artery without angina pectoris; I25.2 Old myocardial infarction; E78.00 Pure hypercholesterolemia, unspecified; I11.0 Hypertensive heart disease with heart failure; Z86.14 Personal history of Methicillin resistant Staphylococcus aureus infection; E11.9 Type 2 diabetes mellitus without complications
CPT/HCPCS: 99284; 96374; 96375; 36415; 85025; 80053; 81001; 72193; J3010; J2270; J1815

== ENCOUNTER 2019-03-10 07:31 | Emergency (ER) | payer SELFPAY ==
[2019-03-10 07:50] VITALS: BP 112/81
[2019-03-10 11:00] LABS: ABSOLUTE EOSINOPHILS # (AUTO) 0.1 10^3/uL (0.0-0.6); ABSOLUTE LYMPHOCYTES (AUTO) 1.6 10^3/uL (0.5-4.7); ABSOLUTE MONOCYTES (AUTO) 0.8 10^3/uL (0.1-1.4); ABSOLUTE NEUT (AUTO) 8.5 10^3/uL (1.7-8.2); BASOPHILS % (AUTO) 0.3 % (0-2); EOSINOPHILS % (AUTO) 0.9 % (0-6); HEMOGLOBIN 15.1 g/dL (13.5-17.0); LYMPHOCYTES % (AUTO) 14.8 % (13-45); MEAN CORPUSCULAR HEMOGLOBIN 29.1 pg (27.0-33.4); MEAN CORPUSCULAR HGB CONC 35.1 g/dL (32.0-36.0); MEAN CORPUSCULAR VOLUME 83 fl (80-97); MONOCYTES % (AUTO) 6.9 % (3-13); PLATELET COUNT 185 10^3/uL (150-450); RED BLOOD COUNT 5.19 10^6/uL (4.35-5.55); RED CELL DISTRIBUTION WIDTH 13.5 % (11.5-14.0); SEGMENTED NEUTROPHILS % (AUTO) 77.1 % (42-78); TOTAL CELLS COUNTED % (AUTO) 100 %
[2019-03-10 11:05] LABS: ALANINE AMINOTRANSFERASE 17 U/L (21-72); ALBUMIN 4.2 g/dL (3.5-5.0); ALKALINE PHOSPHATASE 91 U/L (38-126); ANION GAP 14 (5-19); ASPARTATE AMINO TRANSFERASE 13 U/L (17-59); BILIRUBIN,DIRECT 0.2 mg/dL (0.0-0.4); BILIRUBIN,TOTAL 0.8 mg/dL (0.2-1.3); BLOOD UREA NITROGEN 17 mg/dL (7-20); CALCIUM 9.7 mg/dL (8.4-10.2); CARBON DIOXIDE 25 mmol/L (22-30); CHLORIDE 100 mmol/L (98-107); GLUCOSE 291 mg/dL (75-110); POTASSIUM 4.4 mmol/L (3.6-5.0); SODIUM 138.5 mmol/L (137-145); TOTAL PROTEIN 7.1 g/dL (6.3-8.2)
[2019-03-10] MEDS ORDERED: ACETAMINOPHEN 325 MG TABLET PO ONE (12:08)
--- NOTE | 2019-03-22 08:12 | ER Document Report ---
Entered by JUAN BROWN SCRIBE 03/10/19 1019 Acting as scribe for:MARSHALL PABON MD ED General - General Chief Complaint: Abscess Stated Complaint: ABSCESS Time Seen by Provider: 03/10/19 09:29 Mode of Arrival: Ambulatory Information source: Patient Notes: Patient is a 38 year old male with HTN, Type 2 diabetes and a history of MRSA and recurrent abscesses presents to the emergency department complaining of an abscess on his buttocks onset 2-3 days ago. Patient states it is very painful and has began to drain. He also has a subjective fevers and chills. Patient states he has an prescription of Bactrim (1 tablet, BID) for which he has approximately 10 pills left. TRAVEL OUTSIDE OF THE [place] IN LAST 30 DAYS: No - Related Data Allergies/Adverse Reactions: codeine [From Tylenol-Codeine #3] Allergy (Verified 03/10/19 07:40) ketorolac [From Toradol] Allergy (Verified 03/10/19 07:40) naproxen Allergy (Verified 03/10/19 07:40) Penicillins Allergy (Verified 03/10/19 07:40) tramadol Allergy (Verified 03/10/19 07:40) Past Medical History - General Information source: Patient - Social History Smoking Status: Current Every Day Smoker Chew tobacco use (# tins/day): No Frequency of alcohol use: None Drug Abuse: None Family History: Reviewed & Not Pertinent, CAD, COPD, CVA, DM, Hypertension, Malignancy, Thyroid Disfunction Patient has suicidal ideation: No Patient has homicidal ideation: No - Past Medical History Cardiac Medical History: Reports: Hx Coronary Artery Disease, Hx Heart Attack, Hx Hypercholesterolemia, Hx Hypertension Pulmonary Medical History: Reports: Hx Asthma, Hx COPD Endocrine Medical History: Reports: Hx Diabetes Mellitus Type 2 Musculoskeletal Medical History: Reports Hx Musculoskeletal Deformity, Reports Hx Musculoskeletal Trauma Skin Medical History: 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 Traumatic Medical History: Reports: Hx Fractures - Tibia shoulder and jaw Infectious Medical History: Reports: Hx MRSA Past Surgical History: Reports: Hx Cardiac Catheterization - LAD stent, Hx Cardiac Surgery - stent, Hx Coronary Stent, Hx Orthopedic Surgery - Removal of infection from right thigh - Immunizations Hx Diphtheria, Pertussis, Tetanus Vaccination: No Review of Systems - Review of Systems Constitutional: No symptoms reported EENT: No symptoms reported Cardiovascular: No symptoms reported Respiratory: No symptoms reported Gastrointestinal: No symptoms reported Genitourinary: No symptoms reported Male Genitourinary: No symptoms reported Musculoskeletal: See HPI Skin: See HPI Hematologic/Lymphatic: No symptoms reported Neurological/Psychological: No symptoms reported -: Yes All other systems reviewed and negative Physical Exam - Vital signs Vitals: Temp Pulse Resp BP Pulse Ox 98.1 F 124 H 16 112/81 98 03/10/19 07:47 03/10/19 07:47 03/10/19 07:47 03/10/19 07:47 03/10/19 07:47 - Notes Notes: GENERAL: Alert, interacts well. No acute distress. HEAD: Normocephalic, atraumatic. EYES: Pupils equal, round, and reactive to light. Extraocular movements intact. ENT: Oral mucosa moist, tongue midline. NECK: Full range of motion. Supple. Trachea midline. LUNGS: Clear to auscultation bilaterally, no wheezes, rales, or rhonchi. No respiratory distress. HEART: Regular rate and rhythm. No murmurs, gallops, or rubs. ABDOMEN: Soft, non-tender, copious loose skin. Non-distended. Bowel sounds present in all 4 quadrants. No guarding, rigidity, or rebound. EXTREMITIES: Moves all 4 extremities spontaneously. NEUROLOGICAL: Alert and oriented x3. Normal speech. PSYCH: Normal affect, normal mood. SKIN: Warm, dry, normal turgor. No rashes or lesions noted. : Right buttocks cleft, near anus, contains an area of swelling and induration, there is a pinpoint hole with bray dishcharge, tender to palpation. Course - Re-evaluation Re-evalutation: 03/10/19 12:08 Oh when I got the patient's lab work back, he informed me that he needed to leave because he had to get home to pay his house rent to avoid being kicked out. He states he will return after he takes care of his housing issue. He does want pain medication and a prescription. He list several allergies including Toradol and Naprosyn. He does have a long history of substance problems including incarceration for methamphetamine. Reviewing records it appears that he may have been on pain management with Percocet prior to his incarceration last year. He is driving himself home. Based on his allergy profile, it appears the only safe medication to give him would be Tylenol, and I will not give him a narcotic prescription at this time. - Vital Signs Vital signs: Temp Pulse Resp BP Pulse Ox 98.1 F 124 H 16 112/81 98 03/10/19 07:47 03/10/19 07:47 03/10/19 07:47 03/10/19 07:47 03/10/19 07:47 - Laboratory Result Diagrams: 03/10/19 10:05 03/10/19 10:05 Laboratory results interpreted by me: 03/10/19 03/10/19 03/10/19 10:05 10:05 10:05 WBC 11.0 H Absolute Neutrophils 8.5 H Glucose 291 H Hemoglobin A1c % 10.4 H AST 13 L ALT 17 L Discharge - Discharge Clinical Impression: Perirectal abscess, Poorly controlled diabetes mellitus Condition: Stable Disposition: AGAINST MEDICAL ADVICE Additional Instructions: You have an abscess near your rectum. Your blood sugars are not well controlled. You do need to have that abscess opened up and drained. You have elected to leave the hospital AGAINST MEDICAL ADVICE, however you have indicated that you are going to return after you take care of a housing issue at home. RETURN TO THE EMERGENCY ROOM IF ANY NEW OR WORSENING SYMPTOMS. Scribe Attestation: 03/10/19 10:16 I personally performed the services described in the documentation, reviewed and edited the documentation which was dictated to the scribe in my presence, and it accurately records my words and actions. I personally performed the services described in the documentation, reviewed and edited the documentation which was dictated to the scribe in my presence, and it accurately records my words and actions.
== END 2019-03-10 12:13 | disposition left against medical advice (07) ==
LOC: ER 07:31
DX: K61.1 Rectal abscess (principal); E11.65 Type 2 diabetes mellitus with hyperglycemia; Z86.14 Personal history of Methicillin resistant Staphylococcus aureus infection; I10 Essential (primary) hypertension; I25.10 Atherosclerotic heart disease of native coronary artery without angina pectoris; F17.200 Nicotine dependence, unspecified, uncomplicated; J44.9 Chronic obstructive pulmonary disease, unspecified; Z88.5 Allergy status to narcotic agent; Z88.8 Allergy status to other drugs, medicaments and biological substances; Z88.0 Allergy status to penicillin; Z95.5 Presence of coronary angioplasty implant and graft
CPT/HCPCS: 36415; 80053; 83036; 85025; 87040; 99283

== ENCOUNTER 2019-03-11 00:04 | Emergency (ER) | payer SELFPAY ==
[2019-03-11 00:11] VITALS: BP 134/95
--- NOTE | 2019-03-11 01:23 | ER Document Report ---
ED General - General Chief Complaint: Abscess Stated Complaint: BUTTOCKS PAIN Time Seen by Provider: 03/11/19 01:16 Notes: Patient is a pleasant 38-year-old male presents with complaint of possible perirectal abscess. He has previous history of prostatic abscess which required surgery. He was seen earlier today but had to leave to go home to pay the rent for his apartment. He said he would come back. He is currently on Bactrim which he received from the shelter physician just before being discharged from shelter. Denies any fevers. No vomiting. Said earlier today the area near his rectum was more swollen but he says it has since opened and drained and now is improving. He has no other complaints at this time. TRAVEL OUTSIDE OF THE [place] IN LAST 30 DAYS: No - Related Data Allergies/Adverse Reactions: codeine [From Tylenol-Codeine #3] Allergy (Verified 03/10/19 07:40) ketorolac [From Toradol] Allergy (Verified 03/10/19 07:40) naproxen Allergy (Verified 03/10/19 07:40) Penicillins Allergy (Verified 03/10/19 07:40) tramadol Allergy (Verified 03/10/19 07:40) Past Medical History - Social History Smoking Status: Unknown if Ever Smoked Frequency of alcohol use: None Drug Abuse: None Family History: Reviewed & Not Pertinent, CAD, COPD, CVA, DM, Hypertension, Malignancy, Thyroid Disfunction - Past Medical History Cardiac Medical History: Reports: Hx Coronary Artery Disease, Hx Heart Attack, Hx Hypercholesterolemia, Hx Hypertension Denies: Hx Atrial Fibrillation, Hx Congestive Heart Failure, Hx DVT Pulmonary Medical History: Reports: Hx Asthma, Hx COPD Endocrine Medical History: Reports: Hx Diabetes Mellitus Type 2 Renal/ Medical History: Denies: Hx Peritoneal Dialysis Musculoskeletal Medical History: Reports Hx Musculoskeletal Deformity, Reports Hx Musculoskeletal Trauma Skin Medical History: 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 Denies recent illness. RESPIRATORY: Denies cough, cold, or chest congestion. Denies shortness of breath, difficulty breathing, or wheezing. GASTROINTESTINAL: Denies abdominal pain. Denies nausea, vomiting, or diarrhea. Denies constipation. Last BM: Urinary: Patient says he has chronic frequent bladder spasms since having surgery on his prostate. He requests Pyridium as he says this typically helps. MUSCULOSKELETAL: Denies neck or back pain or joint pain or swelling. SKIN: Perirectal abscess NEUROLOGICAL: Denies altered mental status or loss of consciousness. ALL OTHER SYSTEMS REVIEWED AND NEGATIVE. Physical Exam - Vital signs Vitals: Temp Pulse Resp BP Pulse Ox 98.5 F 102 H 16 134/95 H 98 03/11/19 00:03/11/19 00:03/11/19 00:03/11/19 00:03/11/19 00:09 - Notes Notes: General Appearance: Well nourished, alert, cooperative, no acute distress, no obvious discomfort. Well-appearing. Vitals: reviewed, See vital signs table. Eyes: PERRL, EOMI, Conjuctiva clear Abdomen: Normal BS, soft, No rigidity, No abdominal tenderness, No guarding, no rebound, no abdominal masses, no organomegaly Rectal: Patient has what appears to be an abscess which has opened on its own. Patient has some small amount of purulent drainage draining from it. When I pushed on the area there is no residual underlying fluctuance and only small amount of purulent drainage was expressed. There is no swelling to suggest that there is further abscess that needs to be drained at this time. Skin: warm, dry, appropriate color, no rash Neuro: speech clear, oriented x 3, normal affect, responds appropriately to questions. Course - Re-evaluation Re-evalutation: 03/11/19 02:12 Patient has what appears to be a small perirectal abscess which is Kishore opened and drained on its own. I will switch him to clindamycin as this will provide better coverage due to his perirectal location. I informed him to follow-up nai darling with surgery clinic. I informed him if he is unable to follow-up with surgery clinic by Tuesday then he should return to ER for reevaluation. I informed her if he develops any recurrent swelling or increasing tenderness in the area then he should return to ER immediately. Patient agrees with plan and will be discharged home. Dictation of this chart was performed using voice recognition software; therefore, there may be some unintended grammatical errors. - Vital Signs Vital signs: Temp Pulse Resp BP Pulse Ox 98.5 F 102 H 16 134/95 H 98 03/11/19 00:09 03/11/19 00:09 03/11/19 00:09 03/11/19 00:03/11/19 00:09 Discharge - Discharge Clinical Impression: Perirectal abscess Condition: Good Disposition: HOME, SELF-CARE Additional Instructions: You do have a abscess near her rectum that is already draining. It therefore does not to be incised any further at this time. Will place on antibiotics. Please stop taking the Bactrim and start taking the clindamycin. Please follow- up with the surgery clinic this week. The number to the surgery clinic is under the name Dr. Gupta on your discharge instructions. If you are unable to follow-up with the surgery clinic by Tuesday then you should return to the ER for reevaluation. Return to ER immediately if you have fevers, increasing swelling or pain in the rectum, or if you have any concerns that you are worsening in any way. Please make sure you take a shower and wash your rectal area with soap and water after every bowel movement. Please be aware that [place] does have Tylenol (acetaminophen) in it. Please make sure you do not take more than 4000 mg of acetaminophen a day. Do not drive or care for children after you have taken this medication they will make you sleepy and sometimes impair judgment. Prescriptions: Clindamycin HCl [Cleocin 150 mg Capsule] 300 mg PO Q6 #56 capsule Phenazopyridine HCl [Pyridium 100 Mg Tablet] 100 mg PO BID #10 tablet
[2019-03-11] MEDS ORDERED: CLINDAMYCIN HCL 150 MG CAPSULE PO ONE (01:25)
[2019-03-11] MEDS ORDERED: HYDROCODONE/ACETAMINOPHEN 5-325 MG (6 TAB/ER DISP) PO PRN (01:25)
[2019-03-11] MEDS ORDERED: PHENAZOPYRIDINE HCL 100 MG TABLET PO ONE (01:25)
== END 2019-03-11 02:08 | disposition home or self-care (01) ==
LOC: ER 00:04
DX: K61.1 Rectal abscess (principal); I25.10 Atherosclerotic heart disease of native coronary artery without angina pectoris; I25.2 Old myocardial infarction; I10 Essential (primary) hypertension; J44.9 Chronic obstructive pulmonary disease, unspecified; E11.9 Type 2 diabetes mellitus without complications
CPT/HCPCS: 99282; J3490

== ENCOUNTER 2019-04-24 14:32 | Emergency (ER) | payer SELFPAY ==
[2019-04-24 14:53] VITALS: BP 132/94
--- NOTE | 2019-04-24 15:01 | ER Document Report ---
ED Medical Screen (RME) - General Chief Complaint: Testicular Pain Stated Complaint: PELVIC PAIN Time Seen by Provider: 04/24/19 14:57 TRAVEL OUTSIDE OF THE [place] IN LAST 30 DAYS: No - HPI Notes: 04/24/19 14:59 Patient is a 38-year-old male who presents complaining of left testicular pain since 8:00 this morning after having intercourse. Patient states that he has not noticed any swelling, rash, or redness. He is able to eat and drink without difficulty. He is urinating normally and having normal bowel movements. Denies FIGUEROA, fever, neck pain, URI, CP, SOB, Abd pain, dysuria, back pain, or rash. I have treated and performed a rapid initial assessment of this patient. A comprehensive ED assessment and evaluation of the patient, analysis of test results and completion of medical decision making process will be conducted by additional ED providers. PHYSICAL EXAMINATION: GENERAL: Well-appearing, well-nourished and in no acute distress. A&Ox4. Answers questions appropriately. LUNGS: Breath sounds clear to auscultation bilaterally and equal. No wheezes rales or rhonchi. HEART: Regular rate and rhythm without murmurs, rubs, gallops. : + circumcised. No urethral discharge, lesion, ulceration, erythema, or obvious swelling noted. + tenderness near epididymal area left scrotum. No significant swelling noted to the scrotum/testicles otherwise. No obvious hernia or lymphadenopathy. - Related Data Allergies/Adverse Reactions: codeine [From Tylenol-Codeine #3] Allergy (Verified 04/24/19 14:50) ketorolac [From Toradol] Allergy (Verified 04/24/19 14:50) naproxen Allergy (Verified 04/24/19 14:50) Penicillins Allergy (Verified 04/24/19 14:50) tramadol Allergy (Verified 04/24/19 14:50) Past Medical History - Past Medical History Cardiac Medical History: Reports: Hx Coronary Artery Disease, Hx Heart Attack, Hx Hypercholesterolemia, Hx Hypertension Denies: Hx Atrial Fibrillation, Hx Congestive Heart Failure, Hx DVT Pulmonary Medical History: Reports: Hx Asthma, Hx COPD Endocrine Medical History: Reports: Hx Diabetes Mellitus Type 2 Renal/ Medical History: Denies: Hx Peritoneal Dialysis Musculoskeltal Medical History: Reports Hx Musculoskeletal Deformity, Reports Hx Musculoskeletal Trauma Skin Medical History: 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 Traumatic Medical History: Reports: Hx Fractures - Tibia shoulder and jaw Infectious Medical History: Reports: Hx MRSA Past Surgical History: Reports: Hx Cardiac Catheterization - LAD stent, Hx Cardiac Surgery - stent, Hx Coronary Stent, Hx Orthopedic Surgery - Removal of infection from right thigh - Immunizations Hx Diphtheria, Pertussis, Tetanus Vaccination: No Physical Exam - Vital signs Vitals: Temp Pulse Resp BP Pulse Ox 97.6 F 86 16 132/94 H 96 04/24/19 14:52 04/24/19 14:52 04/24/19 14:52 04/24/19 14:52 04/24/19 14:52 Course - Vital Signs Vital signs: Temp Pulse Resp BP Pulse Ox 97.6 F 86 16 132/94 H 96 04/24/19 14:52 04/24/19 14:52 04/24/19 14:52 04/24/19 14:52 04/24/19 14:52
== END 2019-04-24 15:46 | disposition left against medical advice (07) ==
LOC: ER 14:32
DX: N50.812 Left testicular pain (principal); I25.10 Atherosclerotic heart disease of native coronary artery without angina pectoris; E78.00 Pure hypercholesterolemia, unspecified; I10 Essential (primary) hypertension; E11.9 Type 2 diabetes mellitus without complications; Z86.14 Personal history of Methicillin resistant Staphylococcus aureus infection; Z88.6 Allergy status to analgesic agent; Z88.0 Allergy status to penicillin; I25.2 Old myocardial infarction
CPT/HCPCS: 99281